=== PATIENT | female | born 2000 | race Caucasian/White ===

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

== ENCOUNTER 2020-01-17 16:38 | Outpatient (REF) | payer BC, SELFPAY | END 2020-01-17 16:58 | LOC: LBN 16:38 | PROVIDERS: PCP Nurse Practitioner Family; Visit Provider Obstetrics & Gynecology | DX: N89.8 Other specified noninflammatory disorders of vagina (principal) | CPT/HCPCS: 87480; 87510; 87660 ==

== ENCOUNTER 2020-10-01 12:15 | Outpatient (REF) | payer BC, SELFPAY ==
--- NOTE | 2020-10-01 09:30 | PAPFT_PTH ---
PATIENT: Brenna Alexis LOC: [facility] U#:[id number] AGE/SX: 19/F ROOM: RE10/01/[address]: Heather Barton NP : 2000 BED: DIS: 10/01/2020 SPEC #: [id number] RECD: 10/01/20 12:34 STATUS: DANIEL RESujatha #: [id number] HARJIT: 10/01/20 09:[address]: Heather Barton NP DEPT: [facility] Cytology RECD BY: Mary Pena ENTERED: 10/01/20 12:35 SP TYPE: PAPFT OTHR DR: Austyn James NP Tissues: 1 - CX/ENDOCX FOR PAP SMEARS Procedures: PAP THIN PREP/UVM Screening Comments: [id number] (CHLAMYDIA/GC)
[2020-10-02 16:32] LABS: Chlamydia Result Negative (Negative); GC Result Negative (Negative)
== END 2020-10-01 12:16 | disposition home or self-care (01) ==
LOC: LBN 12:15
PROVIDERS: PCP Nurse Practitioner Family; Visit Provider Nurse Practitioner Women's Health
DX: Z11.3 Encounter for screening for infections with a predominantly sexual mode of transmission (principal); Z12.4 Encounter for screening for malignant neoplasm of cervix
CPT/HCPCS: 87491; 87591; 88142

== ENCOUNTER 2021-02-20 01:02 | Outpatient (CLI) | payer BC, SELFPAY ==
--- NOTE | 2021-02-20 08:00 | DI.RAD_ITS ---
Exam(s) XR HIP LT COMPLETE AP PELVIS EXAM: XR HIP LT COMPLETE AP PELVIS CLINICAL HISTORY: LT HIP PAIN, M25.552. TECHNIQUE: 2D digital imaging was performed. COMPARISON: No exams were available for comparison FINDINGS: No evidence of pelvic nor hip fracture. No degenerative changes in the hips. No evidence of develop mental dysplasia. No evidence of CAM-type femoral neck excrescence. Sacroiliac joints appear unrema rkable. IMPRESSION: No significant radiographic findings. DATA REPOSITORY: RADIATION DOSE DELIVERED:
== END 2021-02-20 01:22 ==
PROVIDERS: PCP Nurse Practitioner Family; Visit Provider Nurse Practitioner Family
DX: M25.552 Pain in left hip (principal)
CPT/HCPCS: 73502

== ENCOUNTER 2021-07-29 15:21 | Outpatient (REF) | payer BC, SELFPAY ==
[2021-07-31 15:30] LABS: Chlamydia Result Negative (Negative); GC Result Negative (Negative)
== END 2021-07-29 15:22 | disposition home or self-care (01) ==
LOC: LBN 15:21
PROVIDERS: PCP Nurse Practitioner Family; Visit Provider Nurse Practitioner Women's Health
DX: Z11.3 Encounter for screening for infections with a predominantly sexual mode of transmission (principal)
CPT/HCPCS: 87491; 87591

== ENCOUNTER 2021-08-07 08:15 | Outpatient (REF) | payer BC, SELFPAY ==
[2021-08-07 11:25] LABS: Source Nasal/Nares
[2021-08-07 16:58] LABS: COVID-19 PCR Negative (Negative)
== END 2021-08-07 08:16 | disposition home or self-care (01) ==
LOC: LBN 08:15
PROVIDERS: PCP Nurse Practitioner Family; Visit Provider Student in an Organized Health Care Education/Training Program
DX: Z20.822 Contact with and (suspected) exposure to COVID-19 (principal); Z01.818 Encounter for other preprocedural examination
CPT/HCPCS: 87635

== ENCOUNTER 2021-08-08 10:23 | Day surgery (SDC) | payer BC, SELFPAY ==
[2021-08-08] VITALS (9 sets, daily range): BP systolic 97–109; BP diastolic 43–62; PULSE 77–106; RESP 16–21; TEMP 36.5–36.6; O2SAT 98–100; BMI 22.2
[2021-08-08] MEDS: Lactated Ringers 1,000 ML 100 ML IV (10:57)
--- NOTE | 2021-08-08 11:12 | W.ANESPRE ---
General Info Date of Service Date Performed: 08/08/21 Height: 5 ft 4 in Weight: 58.8 kg Body Mass Index (BMI): 22.2 Surgical Procedure: Operation Date: 08/08/21 12:50 Proposed Procedure Side Surgeon p Hip Arthroscopy w/Labral Repair and Poss. Femoroplasty Left Lucio Maldonado MD Meds Allergies and Home Medications Allergies Allergy/AdvReac Type Severity Reaction Status Date / Time amoxicillin AdvReac Intermediate Diarrhea Verified 08/08/21 10:31 amoxicillin trihydrate AdvReac Intermediate Diarrhea Verified 08/08/21 10:31 [From Augmentin] potassium clavulanate AdvReac Intermediate Diarrhea Verified 08/08/21 10:31 [From Augmentin] Home Medication Medication Instructions Recorded levonorgestrel (Kyleena) 1 device INTRAUTERINE ONCE #1 ea 07/29/21 aspirin 81 mg tablet,delayed 81 mg PO DAILY 14 Days #14 tab 08/08/21 release naproxen 250 mg tablet 250 - 500 mg PO BID PRN #40 tab 08/08/21 oxycodone 5 mg tablet 5 - 10 mg PO Q4H PRN #18 tab MDD 08/08/21 30 mg Current Visit Medications: Current Medications Generic Name Dose Route Start Last Admin Trade Name Freq PRN Reason Stop Dose Admin Ringer's Solution 1,000 mls @ 100 mls/hr 08/08/21 06:00 08/08/21 10:57 IV 09/06/21 23:59 100 mls/hr INFUSION PERLA Administration Cefazolin Sodium/Dextrose 2 gm in 50 mls @ 100 mls/hr 08/08/21 06:00 Ancef Duplex IVPB 09/06/21 23:59 PREOP PERLA IV Miscellaneous Supplies 1 each 08/08/21 06:00 Iv Access IV 09/06/21 23:59 DIRECTED PERLA Naproxen 250 - 500 mg 08/08/21 11:09 Naproxen 500 Mg Tab PO BID PRN PRN Oxycodone HCl 5 - 10 mg 08/08/21 11:09 Oxycodone 5 Mg Tab PO Q4H PRN PRN Sodium Chloride 0 ml 08/08/21 06:00 Normal Saline Flush 10 Ml Syr IV 09/06/21 23:59 PRN PRN Sodium Chloride 0 ml 08/08/21 06:00 Normal Saline 10 Ml Vial IJ 09/06/21 23:59 DIRECTED PRN Sterile Water 0 ml 08/08/21 06:00 Water,Injection,Sterile 10 Ml Vial IJ 09/06/21 23:59 DIRECTED PRN PFSH Active Problems Active Problems: Problem Status Onset Code IUD surveillance 07/29/21 Z30.431 Labral tear of left hip joint S73.192A 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 Sciatica M54.30 Gastroesophageal reflux disease K21.9 Scoliosis M41.9 Medical History Medical History Anxiety Buckle fracture of distal ends of radius and ulna left- 2007 Gastritis Lumbar spine scoliosis Nocturnal enuresis resolved Obstructive sleep apnea resolved after T&A Patellofemoral syndrome Surgical History Surgical History Tonsillectomy and adenoidectomy age 1yr Tobacco Smoking/Tobacco Use Status: Never Passive smoking exposure: No Second hand exposure: No Alcohol Alcohol Intake: current Alcohol intake frequency: a few times a month Alcohol type: beer, wine and hard liquor Substance Use Substance use: Never Substance use type: does not use Prental History History 0 Para Hx # Term Pregnancies Multiple births Hx # Pregnancies Ectopic pregnancies AB induced Hx Number of Living Children AB spontaneous Vital Signs and Lab Results Vital Signs Most Recent Vital Signs in EMR: Most Recent Vital Signs Temp 36.6 C 08/08/21 10:32 Point of Care Results Point of Care Results: POC- Test(urine) Negative 08/08/21 10:39 Lab Results Blood Type / Crossmatch: No Data to Display Complete Blood Count: No Data to Display Complete Metabolic Panel: No Data to Display Liver Function Panel: No Data to Display Coagulation Panel: No Data to Display Cardiac Panel: No Data to Display Arterial Blood Gas: No Data to Display Venous Blood Gas: No Data to Display Pancreas Panel: No Data to Display Thyroid Panel: No Data to Display Infectious Disease: Coronavirus (COVID-19)(PCR) Negative (Negative) 08/07/21 08:09 08/07/21 Coronavirus 2019 Source Nasal/Nares 08/07/21 08:09 08/07/21 Neisseria gonorrhoeae DNA Probe Negative (Negative) 07/29/21 13:30 07/29/21 Blood Cultures: No Data to Display Toxicology Panel: No Data to Display Panel: Urine HCG, Qualitative Negative 07/29/21 13:04 07/29/21 Anesthesia Assessment and Plan Anesthesia History Personal History: No History of Anesthesia Complications Family History: No Family History of Anesthesia Complications Exercise Tolerance Exercise Tolerance: Metabolic Equivalents>4 Cardiac & Pulmonary Exam Cardiac Exam: Normal S1/S2 Heart Sounds Pulmonary Exam: Clear Bilateral Breath Sounds Implantable Cardiac Device Does patient have a Pacemaker or an ICD?: No Airway Exam Known Difficult Airway: No Mallampati Class: 3 Mouth Opening: Normal (> 3cm) Thyromental Distance: Greater than 3 cm Neck Range of Motion: Full ROM Neck Circumference: Normal Teeth Condition: Normal Dentition ASA Classification ASA Score: ASA 2 Emergency Case?: No NPO Status NPO Status: NPO Clears >2 hours, Solids >8 hours Status Status: Negative HCG Anesthesia Plan Resuscitation Status: Full Code Anesthesia Technique: General Anesthesia Airway Planned: Endotracheal Tube Pain Management: Surgeon and patient request nerve block Monitors Used: Standard Monitors Preoperative Comments:: 20 yo female for hip scope. Sig PMHx: denies. Would like preop anxiolysis.
--- NOTE | 2021-08-08 11:28 | NUR.NOTE ---
Versed 2mg and Zofran 4 mg IV given by anesthesia. O2 sat monitor on. Mother remains at bedside.Nursing Note:
[2021-08-08] MEDS: ceFAZolin 2 GM/50 ML BAG IVPB (12:46)
[2021-08-08] MEDS: Bupivacaine 0.25% Pres-Free 30 ML VIAL (13:27)
--- NOTE | 2021-08-08 13:27 | W.ANESNERVE ---
Nerve Block Single Injection Procedure Date and Time Date Performed: 08/08/21 Procedure Start: 12:31 Location Where Procedure Performed Procedure Location: Operating Room Procedure Stop: 12:40 Reason Performed: Postoperative Analgesia Requesting Provider: Lucio Maldonado Timeout Performed Timeout Performed: Yes Monitoring Used ECG, Blood Pressure and SpO2 Sterility Sterility: Hand Hygiene, Surgical Cap, Surgical Mask, Sterile Gloves and Chlorhexidine Sedation Given During Procedure Sedation Given (Indicate Dose Given): No Sedation given Patient Mental Status Patient Mental Status: Performed under general anesthesia Nerve Block 1st Nerve Block: Laterality: Left Block Type: EDER Needle / Catheter Used: 100mm SonoPlex II Local Anesthetic Bolus (Indicate Dose Given): Bupivacaine 0.375% Dose:: 20 mL Additives (Indicate Dose Given): Epinephrine to make 1:400,000 (2.5mcg/ml) Dose:: 2.5 mcg/ml, Decadron Dose:: 4 mg and Precedex Dose:: 30 mcg Ultrasound: Sterile probe cover and gel used Ultrasound Image Saved?: Yes Nerve Stimulator: Not Used Paresthesia: None Procedure Tolerated: No Complications Procedure Outcome: Successful Procedure Comment: Surgical laterality was confirmed with the patient on entering room. After induction of GA Idania prepped the right side and the needle was placed. It was then noticed that the initial needle placement was on the incorrect side. The needle was removed, the correct/left side was prepped and the block was performed without difficulty. Performed By: Bernardino Mancia
--- NOTE | 2021-08-08 14:34 | DI.RAD_ITS ---
Exam(s) XR HIP LT IN OR EXAM: XR HIP LT IN OR CLINICAL HISTORY: (1) Labral tear of left hip joint: TECHNIQUE: 2D and realtime digital imaging was performed. CONTRAST MATERIAL: Refer to procedure report. COMPARISON: No exams were available for comparison FINDINGS: Fluoroscopy was provided for Dr. Maldonado during the performance of a labral tear repair. Please refer to the procedure report for complete details. Ka,r=5.77 mGy IMPRESSION: RADIATION DOSE DELIVERED:
--- NOTE | 2021-08-08 15:09 | PDOC.DSDIS_ITS ---
Discharge Plan Disposition Patient Disposition: HOME Condition: Stable Discharge Details Reason For Visit: Left hip surgery Attending Provider: Lucio Maldonado Primary Care Provider: Austyn James Home Meds and New Rx's Prescriptions: New aspirin 81 mg tablet,delayed release (DR/EC) 81 mg PO DAILY 14 Days Qty: 14 0RF naproxen 250 mg tablet 250 - 500 mg PO BID PRNQty: 40 0RF Rx Instructions: take with a meal oxycodone 5 mg tablet 5 - 10 mg PO Q4H MDD 30 mg PRN (Reason: moderate to severe pain) Qty: 18 0RF ondansetron 4 mg tablet,disintegrating 4 mg PO Q6H PRN (Reason: nausea or vomiting) Qty: 5 0RF Continued Kyleena 17.5 mcg/24 hrs (5 yrs) 19.5 mg intrauterine device 1 device intrauterine ONCE Qty: 1 0RF Discharge Instructions Additional Instructions: Surgery: Left hip arthroscopy with labral repair and femoroplasty Activity: Protected weight bearing (less than 50%) with crutches for 4 weeks. Avoid deep hip flexion or hip extension for 6 weeks. No cutting, pivoting, or sports for about 3-4 months. A physical therapy prescription will be sent electronically to start in about 3 weeks. Prescriptions: Aspirin 81 mg take 1 daily to prevent a blood clot for 14 days Naproxen 250 mg take 1-2 every 12 hours with a meal as needed for moderate pain Oxycodone 5 mg take 1-2 every 4-6 hours as needed for severe pain You may use [id number] Tylenol (acetaminophen) as needed for mild pain. These pain medications may be taken all at once or in different combinations as needed. Ondansetron (Zofran) 4 mg take 1 orally dissolving tablet every 6 hours as needed for nausea or vomiting Also, recommend Colace (docusate) as a stool softener as surgery and pain medicine cause constipation. A daily probiotic may help with any additional GI issues Dressings: Leave dressing in place for 3 days. May then remove and leave open to air or cover incisions with Band-Aids. May shower after 5 days. Follow-up: 10-[address] Maldonado August 20, 2021 @ 2:15 PM Let us know right away if you develop any redness, drainage, fevers, chest pain, or trouble breathing. Do not drink alcohol or drive for at least 24 hours after anesthesia. Please call the office during business hours with any questions or concerns. Stand Alone Forms: Anesthesia Discharge Inst., Anes.Nerve Block Instructions, Crutch Training Instructions, Yobani Ku (DSU) Referrals: Lucio Maldonado MD [ [facility] STAFF PHYSICIAN] - Discharge Orders Discharge Orders: Discharge Order (Routine); Ordered 08/08/21 Ordered By: Lucio Maldonado DS: Diagnosis Discharge Diagnosis (1) Labral tear of left hip joint: Status: Acute (2) Femoroacetabular impingement of left hip: Status: Acute
[2021-08-08] MEDS: EPINEPHrine 30 MG/30 ML VIAL (15:13)
--- NOTE | 2021-08-08 15:24 | ROE_ITS ---
Date of service: 08/08/21 Time of Service: 12:00 Operative Note Operative Note DATE OF PROCEDURE: 08/08/21 PRE-OP DIAGNOSIS: Left hip 1. Labral tear 2. Femoracetabular impingement POST-OP DIAGNOSIS: same PROCEDURE: Left hip 1. Arthroscopic labral repair, CPT# 11266 2. Arthroscopic femoroplasty, CPT# 68787 SURGEON: Lucio Maldonado PROFESSOR OF SOCIOLOGY: Lucretia Alcantara ANESTHESIA TYPE: Local By Surgeon, General LMA/ETT and Primary Nerve Block (EDER) Refer to Anesthesia Record ESTIMATED BLOOD LOSS: 15 COMPLICATIONS: Other (No surgical complications. See anesthesia record for regional anesthesia details.) Patient was transported to: PACU Patient's condition: stable Implants: 1.8 mm knotless FiberTak x 1 Indications: Please see complete medical record for details. Findings: Relatively stable intrasubstance anterior labral tear with extension to the chondral labral junction anterosuperiorly with cartilage wave sign. Small anterolateral femoral head neck junction bony protuberance about bone cyst. Procedure Description: In the operating room, general and regional anesthesia were induced. The patient was positioned supine on the [place] table. All bony prominences were well-padded. Preoperative antibiotics were administered. The correct patient, procedure, and side of the procedure were all verified prior to beginning. Initially, appropriate hip joint distraction was confirmed under sterile techn ique releasing suction seal with the hip in slight abduction by carefully placing an 18-gauge spinal needle into the hip joint and performing an air arthrogram. The needle was removed, provisional traction released, and the hip prepped and draped in the usual sterile fashion. 20 cc of bupivacaine and lidocaine mixture containing epinephrine was infiltrated about the planned portal sites. Fluoroscopically, an anterolateral portal was established with hip under about 1 cm distraction. Traction start time as noted. Through the spinal needle, a nitinol wire was inserted and the needle removed. An 11 blade was used to create a portal sized incision about the Nitinol wire. A small 4 mm dilator was passed atraumatically over the nitinol wire through the capsule into the hip joint. The nitinol wire was removed. A 6 mm dilator was then passed over the smaller one into the hip joint and the initial dilator removed. The blunt end of a switching stick was then passed into the hip joint and the last dilator removed. The camera sleeve was then inserted over the switching stick, the switching stick removed, and the arthroscope attached to the camera sleeve. An initial dry arthroscopy of the hip joint confirmed appropriate viewing portal location about the equator laterally. Using a combination of fluoroscopic guidance and arthroscopic triangulation a modified mid anterior portal was established in a similar fashion with a spinal needle and sequential dilators. Care was taken to ensure the portal was in an appropriate position and outside the labrum. A banana blade was inserted anteriorly over half pipe. The capsule was released distal to the labrum working towards the anterolateral portal. The camera was then switched to the anterior portal, the anterolateral portal location was confirmed to be appropriate, and the banana blade brought in the anterolateral portal and the interportal capsulotomy completed. The camera was then switched back to the anterolateral portal. A complete diagnostic arthroscopy of the hip was performed with relevant findings noted above. Attention was then turned to the anterior superior labral tear. Various hand instruments were used to identify the margin of the tear and prepare the labrum and acetabulum to optimize healing. A rigid cannula was inserted anteriorly. Fluoroscopic assistance was used to confirm appropriate placement of the suture anchor about the central zone of injury between the intrasubstance and chondral labral junction tearing. The curved guide was used and directed proximally to ensure no joint penetration. After the curve guide was was tapped securing placement on the acetabular rim, the wire drill was used the appropriate depth, and knotless fiber tack anchor deployed. Withdrawing the sutures confirm secure fixation. The bhatia stitch was used to shuttle the looped end of the FiberLink shuttle stitch between the labrum and the acetabulum and retrieved centrally. The repair stitch was then shuttled around the labrum and appropriate tension applied completing the inversion repair. The repair suture was cut with a small tail. The probe was used to examine the labrum more anteriorly and superiorly with no significant remaining labral or chondrolabral junction tearing requiring additional repair. The blunt end of a switching stick was left in the anterior portal, but appropriately withdrawn from hip joint. The camera was withdrawn similarly. Under direct visualization traction was gradually released at 64 minutes. The femoral head neck junction was inspected about the zone of labral injury. The hip was brought through internal rotation, external rotation, and deep flexion with rotation. There was an obvious zone of injury involving cartilage thinning, delamination, and mild prominence about a small bone cyst at the femoral head neck junction distal to the labral repair A switching stick was used to retract the capsule distally, the hip positioned in moderate flexion, and the mechanical shaver used to debride unstable cartilage, bone cyst, and then smooth the bony prominence under fluoroscopic assistance. Hip was brought back through range of motion confirming appropriateness of femoroplasty. The limited capsulotomy had well apposed tissue ends and was not formally closed. The hip was drained of arthroscopic fluid. The portals were closed using 3-0 Monocryl in a buried fashion. Steri-Strips were applied over the incisions followed by Xeroform, 4 x 4 gauze, an ABD pad, and secured with tape. The patient awoke from anesthesia without complication and was transferred to the recovery room in a stable condition.
--- NOTE | 2021-08-08 15:29 | W.ANESPOSTOP ---
Postoperative Evaluation Date, Time and Location Date Performed: 08/08/21 Time Performed: 15:30 Patient Location: Day Surgery Unit Vital Signs Most Recent Imported Vital Signs: Most Recent Vital Signs Temp Pulse Resp BP Pulse Ox 36.6 C 81 20 105/61 100 08/08/21 14:53 08/08/21 15:10 08/08/21 15:10 08/08/21 15:10 08/08/21 15:10 Pain Score Most Recent Pain Score: Most Recent Pain Score Pain Level 5 08/08/21 15:10 Assessment Mental Status: Awake (Alert & Oriented to Patient Baseline) Airway and Respiratory Function: Patent airway with normal (patient baseline) respiratory exam Cardiovascular Function: Hemodynamically Stable Hydration Status: Adequately Hydrated Nausea & Vomiting: No Nausea or Vomiting Pain: Pain is tolerable per patient Peripheral Nerve Block: Regional nerve block not resolved at time of post operative discharge Postoperative Comments:: Discussed with her the accidental needle puncture on the right hip. She is aware that the block was started, but quickly aborted on the incorrect side. She has no further questions, and was encouraged to reach out to us is she has any.
[2021-08-08] MEDS: Naproxen 500 MG TAB PO (16:04)
--- NOTE | 2021-08-08 16:24 | NUR.NOTE ---
Stood at bedside for crutch training with 2 nurses for contact supervision. States she became dizzy and was going down. Assisted to supine Mother states she is a fainter. BP remained stable at 99/62. Recovered spontaneously. Additional apple juice and crackers with strawberry jam given. Nursing Note:
== END 2021-08-08 17:08 | disposition home or self-care (01) ==
PROVIDERS: PCP Nurse Practitioner Family; Visit Provider Student in an Organized Health Care Education/Training Program
PROC: (CPT 29860; principal; 2021-08-08 12:30)
DX: S73.192A Other sprain of left hip, initial encounter (principal); M25.852 Other specified joint disorders, left hip; M54.30 Sciatica, unspecified side
CPT/HCPCS: 29916; 29914; 73501; J0131; J0171; J0690; J1100; J1885; J2001; J2250; J2405; J2704; J3475

== ENCOUNTER 2022-05-04 03:27 | Outpatient (CLI) | payer BC, SELFPAY ==
[2022-05-04 11:36] LABS: Abs Immature Grans 0.01 10^3/uL (0.0-0.06); Absolute Basophil Count 0.05 10^3/uL (0.0-0.2); Absolute Eosinophil Count 0.08 10^3/uL (0.0-0.7); Absolute Lymphocyte Count 1.98 10^3/uL (1.2-3.4); Absolute Monocyte Count 0.49 10^3/uL (0.1-0.8); Absolute Neutrophil Count 3.09 10^3/uL (1.2-6.7); Basophils % 0.9; Eosinophils % 1.4; HCT 42.8 % (36.0-46.0); HGB 14.5 g/dL (11.2-15.7); Immature Grans % 0.2; Lymphocytes % 34.7; MCH 28.7 pg (27.0-33.0); MCHC 33.9 % (32.0-36.0); MCV 85 fL (80-95); Monocytes % 8.6; Neutrophils % 54.2; Platelet Count 243 10^3/uL (130-400); RBC 5.06 10^6/uL (3.93-5.22); RDW 12.5 % (11.7-14.6); RDW-SD 38.3 fL
[2022-05-04 12:43] LABS: ALT 19 U/L (14-59); AST 18 U/L (15-37); Albumin 4.4 g/dL (3.4-5.0); Alkaline Phosphatase 114 U/L (46-116); Anion Gap 7.8 mmol/L (3-11); BUN 8 mg/dL (7-18); Bilirubin, Total 0.7 mg/dL (0.2-1.0); CO2 26.2 mmol/L (21.0-32.0); CREATININE 0.7 mg/dL (0.55-1.02); Calcium 9.3 mg/dL (8.5-10.1); Chloride 105 mmol/L (98-107); Estimated GFR 124.55 (mL/min/1.73m2); Ferritin 34 ng/mL (8-252); Glucose 99 mg/dL (74-106); Potassium 3.8 mmol/L (3.5-5.1); Sodium 139 mmol/L (136-145); TSH (W/Ref FT4) 2.35 uIU/mL (0.36-3.74); Total Protein 7.7 g/dL (6.4-8.2); Vitamin B12 417 pg/mL (193-986)
[2022-05-04 13:57] LABS: C-Reactive Protein < 0.05 mg/dL (0.0-0.3)
[2022-05-05 10:00] LABS: Lyme Ab w Rflx to Lyme Confirm Negative (Negative)
[2022-05-06 14:12] LABS: ANA Interpretation Negative (Negative)
[2022-05-07 12:54] LABS: IgA 205 mg/dL (85-499); Interpretation (See Note); Tissue Transglutaminase IgA <1.2 U/mL (<4.0)
[2022-05-07 17:25] LABS: Anaplasma phagocytophilum Negative (Negative); B. miyamotoi PCR Negative (Negative); Babesia divergens/MO-1 Negative (Negative); Babesia duncani Negative (Negative); Babesia microti Negative (Negative); Ehrlichia chaffeensis Negative (Negative); Ehrlichia ewingii/canis Negative (Negative); Ehrlichia muris eauclairensis Negative (Negative)
[2022-05-12 22:01] LABS: c-ANCA Negative (Negative); p-ANCA Negative (Negative)
== END 2022-05-04 03:28 | disposition home or self-care (01) ==
LOC: LBO 03:27
PROVIDERS: PCP Nurse Practitioner Family; Visit Provider Surgery
DX: K21.9 Gastro-esophageal reflux disease without esophagitis (principal); K58.1 Irritable bowel syndrome with constipation; R10.9 Unspecified abdominal pain; Z83.79 Family history of other diseases of the digestive system; K62.5 Hemorrhage of anus and rectum; K62.89 Other specified diseases of anus and rectum; Z83.49 Family history of other endocrine, nutritional and metabolic diseases
CPT/HCPCS: 36415; 80053; 82784; 83516; 87798; 82607; 82728; 84443; 85025; 86038; 86140; 86255; 86618

== ENCOUNTER 2022-08-03 13:14 | Outpatient (REF) | payer BC, SELFPAY | END 2022-08-03 13:15 | disposition home or self-care (01) | LOC: LBN 13:14 | PROVIDERS: PCP Nurse Practitioner Family; Visit Provider Nurse Practitioner Women's Health | DX: R30.0 Dysuria (principal); R35.0 Frequency of micturition | CPT/HCPCS: 87086 ==

== ENCOUNTER 2022-09-18 07:08 | Day surgery (SDC) | payer BC, SELFPAY ==
--- NOTE | 2022-09-17 18:06 | W.COLOREPORT ---
Date of service: 09/18/22 Time of Service: 09:07 Colonoscopy Report Date of procedure: 09/18/22 Pre-op diagnosis general: IBS/rectal bleeding Post-op diagnosis procedure note: same Surgeon: Lucretia Irwin Anesthesia Type: General:No Airway Estimated blood loss (mL): 1 Pathology: other Complications: None Disposition: same day Prep: Miralax/Dulcolax Retraction Time: 18 Procedure Description: After informed consent was obtained the patient was taken to the procedure room and placed in a left decubitous position. Monitors were applied and a time out was done. The patients name, date of , procedure, allergies to medications and metal in their body was reviewed. The patient was then sedated. Once sedated and comfortable a rectal exam was done. External exam was normal. Internal exam revealed a normal sphincter tone and no palpable masses. The scope was then introduced and retrofelexed. No internal hemorrhoids were identified. Her previously noted anal fissure is healed. the scope was then advanced to the cecum without difficulty. The TI and appendiceal orifice were identified. The prep was BBPS 3 in all segments for total of 9. The scope was then slowly retracted over 18 minutes back into the rectum. There are no polyps or AVMs or diverticula visualized. The mucosa is pink and healthy. Biopsies are taken of the terminal ileum, the cecum, 80/60/40/20 centimeters in the rectum. He patient was woken up and taken back to Same day surgery in stable condition. The patient tolerated the procedure well and there were no immediate complications. Follow up: The patient should have a repeat colonoscopy at age 43, unless they develop changes in bowel habits or other new gastrointestinal complaints.
--- NOTE | 2022-09-17 21:31 | PDOC.DSDIS_ITS ---
Date of service: 09/18/22 Time of Service: 09:07 Discharge Plan Disposition Patient Disposition: Home Condition: Good Discharge Details Reason For Visit: colon scope Attending Provider: Lucretia Irwin Primary Care Provider: Austyn James Home Meds and New Rx's Prescriptions: Continued Kyleena 17.5 mcg/24 hrs (5 yrs) 19.5 mg intrauterine device 1 device intrauterine ONCE Qty: 1 0RF psyllium husk [Metamucil] 0.4 gram capsule 0.4 g PO DAILY Discontinued polyethylene glycol 3350 17 gram/dose powder 238 g PO ONCE Qty: 238 0RF Rx Instructions: take per colonoscopy instructions bisacodyl [Dulcolax (bisacodyl)] 5 mg tablet,delayed release (DR/EC) 5 mg PO ONCE Qty: 4 0RF Rx Instructions: take per colonoscopy instructions Discharge Instructions Additional Instructions: DSU Colonoscopy Post- Op Instructions Instructions for Everyone who is given Anesthesia: For your safety, please do the following for the next twenty-four (24) hours: *Do Not operate a motor vehicle (car, truck, motorcycle, etc.) *Do Not drink alcoholic beverages or use any recreational drugs for the first 24 hours or while taking pain medications. The medications in your body may have a reaction that can be dangerous. *Do Not make any important decisions or sign any important papers. Findings: Normal IBS -constation Dr. Irwin in 2 wks time 1. No lifting over 20 pounds or strenuous activity for the first 24 hours after your procedure. After 24 hours there are no restrictions on your activity but you may feel fatigued for a few days. 2. After you arrive home you may have a light meal and return to your normal diet as you can tolerate it without feeling sick to your stomach. 3. You may have a bloated, gaseous feeling in your belly (abdomen) after a colonoscopy. Passing gas and belching will help. Walking or lying down on your left side with your knees flexed may relieve the discomfort. Call the office at [phone] (Office) or [phone] (Hospital) right away if you notice any of the following: a.Vomiting of blood or ?coffee ground stools?. b.Rectal bleeding 1Tbsp, blood clots or continuous bleeding. c.Severe belly (abdominal) pain. d.A hard distended belly (abdomen) and an inability to pass gas. 4. Please don?t expect to have a normal BM (bowel movement) for 2-3 days after your procedure. 5. If there are questions regarding the findings of your procedure, please contact your doctor 6. If you are unable to contact your doctor with a problem, contact the hospital at [phone]. 7. Continue all your regular medications unless directed otherwise. I understand the above instructions and have no questions. Signature of Patient or Adult Escort Name of Responsible Adult Escort Signature of Nurse Date/Time Activity:: see above Diet:: see above Discharge Orders Discharge Orders: Discharge Order (Routine); Ordered 09/18/22 Ordered By: Lucretia Irwin DS: Diagnosis Discharge Diagnosis (1) Chronic constipation with overflow: Status: Acute (2) Chronic anal fissure: Status: Acute (3) Lactose intolerance: Status: Acute (4) Family history of thyroid disease: Status: Acute (5) Family history of irritable bowel syndrome: Status: Acute (6) Irritable bowel syndrome with constipation: Status: Acute Asessment and Plan: The patient is seen and examined after their colonoscopy.? The patient has been able to pass gas.? They are not having abdominal pain.? They have been able to t olerate liquids and a snack.? They do not have any nausea or vomiting.? They are not having any chest pain or shortness of breath.??? They are not having any rectal bleeding. Their vital signs have been stable-see nursing notes. We discussed findings during their colonoscopy, and any biopsies that were done/polyps that were removed. The patient will be sent a letter with any biopsy results, and when to repeat the colonoscopy.-see discharge instructions. Patient was given explicit instructions to follow-up regarding colonoscopy-refer to discharge instructions.? We reviewed resumption of medications. Patient verbalized understanding and discharged in stable and satisfactory condition- See nursing notes. (7) Abdominal cramping: Status: Acute (8) Gastroesophageal reflux disease: Status: Chronic
[2022-09-18 07:24] VITALS: BP 116/79; PULSE 78; RESP 17; TEMP 37; O2SAT 97
[2022-09-18] MEDS: Lactated Ringers 1,000 ML 80 ML IV (07:35)
--- NOTE | 2022-09-18 07:46 | W.ANESPRE ---
General Info Date of Service Date Performed: 09/18/22 Height: 5 ft 4 in Weight: 59.2 kg Body Mass Index (BMI): 22.4 Surgical Procedure: Operation Date: 09/18/22 08:20 Proposed Procedure Side Surgeon p Colonoscopy w/Biopsy Lucretia Irwin, Meds Allergies and Home Medications Allergies Allergy/AdvReac Type Severity Reaction Status Date / Time amoxicillin AdvReac Intermediate Diarrhea Verified 09/17/22 13:33 amoxicillin trihydrate AdvReac Intermediate Diarrhea Verified 09/18/22 07:23 [From Augmentin] potassium clavulanate AdvReac Intermediate Diarrhea Verified 09/18/22 07:23 [From Augmentin] Home Medication Medication Instructions Recorded levonorgestrel 17.5 mcg/24 hrs 1 device intrauterine ONCE #1 ea 07/29/21 (5yrs) 19.5mg intrauterine device (Kyleena) psyllium husk 0.4 gram capsule 0.4 g PO DAILY 06/01/22 (Metamucil) Current Visit Medications: Current Medications Generic Name Dose Route Start Last Admin Trade Name Freq PRN Reason Stop Dose Admin Hyoscyamine Sulfate 0.125 mg 09/18/22 06:04 Hyoscyamine 0.125 Mg Sl/Oral/Chew SL 10/18/22 06:03 DIRECTED PRN Ringer's Solution 1,000 mls @ 80 mls/hr 09/18/22 06:00 09/18/22 07:35 IV 09/18/22 23:59 80 mls/hr INFUSION PERLA Administration IV Miscellaneous Supplies 1 each 09/18/22 06:00 Iv Access IV 09/18/22 23:59 DIRECTED PERLA Ondansetron HCl 4 mg 09/18/22 06:04 Ondansetron 4 Mg/2 Ml Vial IVP 10/18/22 06:03 Q4H PRN PRN Nausea / Vomiting Sodium Chloride 0 ml 09/18/22 06:00 Normal Saline Flush 10 Ml Syr IV 09/18/22 23:59 PRN PRN Sodium Chloride 0 ml 09/18/22 06:00 Normal Saline 10 Ml Vial IJ 09/18/22 23:59 DIRECTED PRN Sterile Water 0 ml 09/18/22 06:00 Water,Injection,Sterile 10 Ml Vial IJ 09/18/22 23:59 DIRECTED PRN PFSH Active Problems Active Problems: Problem Status Onset Code Anxiety Scoliosis M41.9 Gastroesophageal reflux disease K21.9 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 Labral tear of left hip joint S73.192A IUD surveillance 07/29/21 Z30.431 Abdominal cramping R10.9 Irritable bowel syndrome with constipation K58.1 Family history of irritable bowel syndrome Z83.79 Family history of thyroid disease Z83.49 Lactose intolerance E73.9 Chronic anal fissure K60.1 Chronic constipation with overflow K59.09 Medical History Medical History Buckle fracture of distal ends of radius and ulna left- 2007 Gastritis Lumbar spine scoliosis Nocturnal enuresis resolved Obstructive sleep apnea resolved after T&A Patellofemoral syndrome Rectal bleeding Rectal pain Surgical History Surgical History History of repair of left hip joint Tonsillectomy and adenoidectomy age 1yr Tobacco Smoking/Tobacco Use Status: Never Passive smoking exposure: No Second hand exposure: No Alcohol Alcohol Intake: current Alcohol intake frequency: a few times a week Alcohol type: beer, wine and hard liquor Substance Use Substance use: Occasionally Substance use type: marijuana Prental History History 0 Para Hx # Term Pregnancies Multiple births Hx # Pregnancies Ectopic pregnancies AB induced Hx Number of Living Children AB spontaneous Vital Signs and Lab Results Vital Signs Most Recent Vital Signs in EMR: Most Recent Vital Signs Temp Pulse Resp BP Pulse Ox 37.0 C 78 17 116/79 97 09/18/22 07:24 09/18/22 07:24 09/18/22 07:24 09/18/22 07:24 09/18/22 07:24 Lab Results Blood Type / Crossmatch: No Data to Display Complete Blood Count: No Data to Display Complete Metabolic Panel: No Data to Display Liver Function Panel: No Data to Display Coagulation Panel: No Data to Display Cardiac Panel: No Data to Display Arterial Blood Gas: No Data to Display Venous Blood Gas: No Data to Display Pancreas Panel: No Data to Display Thyroid Panel: No Data to Display Infectious Disease: No Data to Display Blood Cultures: No Data to Display Toxicology Panel: No Data to Display Panel: No Data to Display Anesthesia Assessment and Plan Anesthesia History Personal History: No History of Anesthesia Complications Family History: No Family History of Anesthesia Complications Exercise Tolerance Exercise Tolerance: Metabolic Equivalents>4 Pertinent Negatives Pertinent Negatives: No Major Cardiovascular Symptoms or Complaints, No Major Pulmonary Symptoms or Complaints and No History of CVA/TIA Cardiac & Pulmonary Exam Cardiac Exam: Normal S1/S2 Heart Sounds Pulmonary Exam: Clear Bilateral Breath Sounds Implantable Cardiac Device Does patient have a Pacemaker or an ICD?: No Airway Exam Known Difficult Airway: No Mallampati Class: 3 Mouth Opening: Normal (> 3cm) Thyromental Distance: Greater than 3 cm Neck Range of Motion: Full ROM Neck Circumference: Normal Teeth Condition: Normal Dentition ASA Classification ASA Score: ASA 2 Emergency Case?: No NPO Status NPO Status: NPO Clears >2 hours, Solids >8 hours Status Status: Negative HCG Anesthesia Plan Resuscitation Status: Full Code Anesthesia Technique: General Anesthesia Airway Planned: Natural Airway Monitors Used: Standard Monitors
[2022-09-18 08:07] VITALS: BMI 22.4
--- NOTE | 2022-09-18 08:35 | BOWEL_PTH ---
PATIENT: Brenna Alexis LOC: [facility] U#:[id number] AGE/SX: 21/F ROOM: RE09/18/[address]: Lucretia Irwin : 2000 BED: DIS: 09/18/2022 SPEC #: [id number] RECD: 09/18/22 12:40 STATUS: DANIEL PALUMBO #: [id number] HARJIT: 09/18/22 08:[address]: Lucretia Irwin DEPT: Surgical Specimen RECD BY: Mary Pena ENTERED: 09/18/22 12:41 SP TYPE: Bowel OTHR DR: Austyn James, [facility] Tissues: 1 - BIOPSY BOWEL 2 - BIOPSY BOWEL 3 - BIOPSY BOWEL 4 - BIOPSY BOWEL 5 - BIOPSY BOWEL 6 - BIOPSY BOWEL 7 - BIOPSY BOWEL Procedures: GROSS AND MICRO LEVEL 4 Comments: [id number]
[2022-09-18 08:55] VITALS: BP 111/75; PULSE 85; RESP 16; TEMP 36.7; O2SAT 100
[2022-09-18 09:25] VITALS: BP 104/72; PULSE 74; RESP 16; TEMP 36.7; O2SAT 100
--- NOTE | 2022-09-18 09:46 | W.ANESPOSTOP ---
Postoperative Evaluation Date, Time and Location Date Performed: 09/18/22 Time Performed: 09:12 Patient Location: Day Surgery Unit Vital Signs Most Recent Imported Vital Signs: Most Recent Vital Signs Temp Pulse Resp BP Pulse Ox 36.7 C 85 16 111/75 100 09/18/22 08:55 09/18/22 08:55 09/18/22 08:55 09/18/22 08:55 09/18/22 08:55 Pain Score Most Recent Pain Score: Most Recent Pain Score Pain Level 0 09/18/22 08:55 Assessment Mental Status: Awake (Alert & Oriented to Patient Baseline) Airway and Respiratory Function: Patent airway with normal (patient baseline) respiratory exam Cardiovascular Function: Hemodynamically Stable Hydration Status: Adequately Hydrated Nausea & Vomiting: No Nausea or Vomiting Pain: Pt. Denies Any Pain Peripheral Nerve Block: Patient did not receive a nerve block
== END 2022-09-18 09:58 | disposition home or self-care (01) ==
PROVIDERS: PCP Nurse Practitioner Family; Visit Provider Surgery
PROC: 0DJD8ZZ Inspection of Lower Intestinal Tract, Via Natural or Artificial Opening Endoscopic (ICD-10-PCS; CPT 45378; principal; 2022-09-18 08:15)
DX: K62.5 Hemorrhage of anus and rectum; Z80.0 Family history of malignant neoplasm of digestive organs; K58.1 Irritable bowel syndrome with constipation; K62.89 Other specified diseases of anus and rectum
CPT/HCPCS: 45380; 81025; 88305; J2001; J2250; J2405

== ENCOUNTER 2023-12-15 02:25 | Outpatient (CLI) | payer BC, SELFPAY ==
--- OUTSIDE RECORDS SUMMARY | 2023-12-15 02:45 | XMS_ITS | Encounter Summary ---
Author Organization [facility] Address [address] [place] [address] Care Team Providers Care Manager Labor Relations Name Role Phone Kimberly Lu MD Primary Care Provider [phone]- [phone] Encounter Details Date Type Department Care Team ([facility] st Contact Info) Description 08/02/2018 Results Only [facility] [phone] Olamide Gordon, [facility] [address] [place] [address] Social History Tobacco Use Types Packs/Day Years Used Date Smoking Tobacco: Never Smokeless Tobacco: Never Alcohol Use Standard Drinks/Week Comments Yes 0 (1 standard drink = 0.6 oz pur e alcohol) 0-1 per week Sex and Gender Information Value Date Recorded Sex Assigned at Not on file Gender Identity Not on file Sexual Orientation Not on file documented as of this encounter Functional Status Functional Status Response Date of Assess ment Because of a physical, menta l, or emotional condition, does this person have difficulty doing errands alone such as visiting a doctor's office or shopping? No 08/05/2017 Cognitive Status Response Date of Assessm ent Because of a physical, menta l, or emotional condition, does this person have serious difficulty concentrating, remembering, or making decisions? No 08/05/2017 documented as of this encounter Plan of Treatment Not on file documented as of this encounter Procedures Procedure Name Priority Date/Time Associated Diagnosis Comments HSV (HERPES SIMPLEX VIRUS) MOLECULAR DETECTION, PCR Routine 08/02/2018 11:00 EDT documented in this encounter Results * (ABNORMAL) HERPES SIMPLEX VIRUS MOLECULAR DETECTION, PCR (08/02/2018 11:00 EDT) Specimen Description Lip 08/02/2018 13:43 EDT [facility] HSV1 DNA Result POSITIVE(AA) 019 11:10 EDT [facility] HSV2 DNA Result Negative 9 11:10 EDT [facility] TOPOGRAPHY UNKNOWN / Unknown 08/02/2018 11:00 EDT 08/02/2018 13:43 EDT Olamide Gordon DNP MICROBIOLOGY - GENER AL ORDERABLES [facility] [address] [place] [address] documented in this encounter Visit Diagnoses Not on filedocumented in this encounter Care Teams Manager Labor Relations Relationship Specialty Start Date End Date Kimberly Lu MD PCP - General 07/28/17 11/10/18 documented as of this encounter
--- OUTSIDE RECORDS SUMMARY | 2023-12-15 02:45 | XMS_ITS | Encounter Summary ---
Author Organization [facility] Address [address] [place] [address] Care Team Providers Care Quality Control Head Name Role Phone Unknown, Provider Primary Care Provider [phone] Encounter Details Date Type Department Care Team ([facility] st Contact Info) Description 12/23/2018 Results Only [facility] [phone] Kimberly Gallegos MD [address] [place] [address] Social History Tobacco Use Types Packs/Day Years [...] Procedure Name Priority Date/Time Associated Diagnosis Comments BACTERIAL CULTURE, URINE Routine 12/23/2018 18:39 EDT documented in this encounter Results * BACTERIAL CULTURE, URINE (12/23/2018 18:39 EDT) Pathologist [facility] Result 10,000 to 100,000 CFU/ml CITROBACTER KOSERI 12/25/2018 9:31 EDT [facility] Result Less than 10,000 CFU/ml Usual urogenital arlette. 12/25/2018 9:31 EDT [facility] URINE / Unknown 12/23/2018 1 8:39 EDT 12/23/2018 18:39 EDT Narrative Organism Antibiotic Method Susceptibility 10,000 to 100,000 cfu/ml citrobacter koseri Trimethoprim-Sulfameth oxazole SUSCEPTIBILITY (AMARI) Susceptible 10,000 to 100,000 cfu/ml citrobacter koseri Nitrofurantoin SUSCEPTIBILITY (AMARI) Intermediate 10,000 to 100,000 cfu/ml citrobacter koseri Ciprofloxacin SUSCEPTIBILITY (AMARI) Susceptible 10,000 to 100,000 cfu/ml citrobacter koseri Piperacillin Tazobactam SUSCEPTIBILITY (AMARI) Susceptible 10,000 to 100,000 cfu/ml citrobacter koseri Ertapenem SUSCEPTIBILITY (AMARI) Susceptible 10,000 to 100,000 cfu/ml citrobacter koseri Susceptibility comment SUSCEPTIBILITY (AMARI) 10,000 to 100,000 cfu/ml citrobacter koseri Susceptibility comment SUSCEPTIBILITY (AMARI) Third generation cephalosporins, such as ceftazidime, ceftriaxone, and cefpodoxime, should be avoided for treatment of this organism regardless of in vitro susceptibility. Kimberly Gallegos MD MICROBIOLOGY - [facility] AL ORDERABLES [facility] [address] [place] [address] documented in this encounter Visit Diagnoses Not on filedocumented in this encounter Care Teams Quality Control Head Relationship Specialty Start Date End Date Unknown, Provider, PCP - General 11/11/18 documented as of this encounter
--- OUTSIDE RECORDS SUMMARY | 2023-12-15 02:45 | XMS_ITS | Encounter Summary ---
Author Organization [facility] Address [address] [place] [address] Care Team Providers Care Automatic Vulcanizing Lead Operator Name Role Phone Kimberly Lu MD Primary Care Provider [phone]- [phone] Encounter Details Date Type Department Care Team (Late st Contact Info) Description 07/15/2018 10:40 EDT - 07/15/2018 10:42 EDT Hospital Encounter [address] [address] Olamide Gordon, DNP [address] [place] [phone] Discharge Disposition: Home or Self Care Social History Tobacco Use Types Packs/Day Years [...] No 08/05/2017 documented as of this encounter Discharge Diagnoses Diagnosis B37.3 Candidiasis of vulva and vagina-B37.3[ICD-10-CM] documented in this encounter Medications at Time of Discharge Medication Sig Dispensed Refills Start Date End Date desogestrel-ethinyl estradiol (ENSKYCE) 0.15-0.03 mg per tablet Take 1 Tab by mouth daily. Multivitamins with Minerals tablet tablet Take 1 Tab by mouth daily. mupirocin calcium (BACTROBAN) 2 % cream Apply a small amount to affected skin BID-TID 30 g 06/03/2018 ranitidine (ZANTAC) 150 mg tablet Take 150 mg by mouth 2 times daily as needed for Heartburn. documented as of this encounter Discharge Disposition Disposition Code Departure Means Destination Home or Self Care documented in this encounter Plan of Treatment Not on file documented as of this encounter Visit Diagnoses Not on filedocumented in this encounter Care Teams Automatic Vulcanizing Lead Operator Relationship Specialty Start Date End Date Kimberly Lu MD PCP - General 07/28/17 11/10/18 documented as of this encounter
--- OUTSIDE RECORDS SUMMARY | 2023-12-15 02:45 | XMS_ITS | Encounter Summary ---
Author Organization [facility] Address [address] [place] [address] Care Team Providers Care Insole Toe Snipping Machine Operator Name Role Phone Kimberly Lu MD Primary Care Provider [phone]- [phone] Encounter Details Date Type Department Care Team ([facility] st Contact Info) Description 08/02/2018 15:04 EDT - 08/02/2018 23:59 EDT Hospital Encounter [address] [address] Olamide Gordon, [facility] [address] [place] [phone] Discharge Disposition: Home or Self Care Social [...] as of this encounter Discharge Diagnoses Diagnosis 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
--- OUTSIDE RECORDS SUMMARY | 2023-12-15 02:45 | XMS_ITS | Encounter Summary ---
Author Organization [facility] Address [address] [place] [address] Care Team Providers Care Bunch Maker Name Role Phone Kimberly Lu MD Primary Care Provider [phone]- [phone] Reason for Visit * Reason Comments Follow-up seen yesterday for l olena on left thigh, noticed today spreading redness, worried about infection Encounter Details Date Type Department Care Team (Latest Contact Info) Description 06/03/2018 15:45 EST - 06/03/2018 17:18 EST Hospital Encounter [facility] - [address] [address] Chiqui Carmichael PA-C [address] [place] [address] [phone] Unknown, Provider, Skin lesion (Primary Dx) Discharge Disposition: Home or Self Care Social [...] on file documented as of this encounter Last Filed Vital Signs Vital Sign Reading Time Taken Comments Blood Pressure 111/67 06/03/2018 1601 EST Pulse 80 06/03/2018 1601 EST Temperature 36.4 ??C (97.6 ??F) 06/03/2018 1601 EST Respiratory Rate 16 06/03/2018 1601 EST Oxygen Saturation - - Inhaled Oxygen Concentration - - Weight - - Height - - Body Mass Index - - documented in this encounter Functional Status Functional Status Response [...] as of this encounter Discharge Diagnoses Diagnosis J98.9 Respiratory disorder, unspecified-J98.9[ICD-10-CM] documented in this encounter Discharge Instructions * Attachments The following attachments cannot be sent through Care Everywhere. * SKIN CONDITION: ANTIBIOTICS (RWANDAN) documented in this encounter Medications at Time [...] for Heartburn. documented as of this encounter Ordered Prescriptions Prescription Sig Dispensed Refills Start Date End Da te mupirocin calcium (BACTROBAN) 2 % cream Apply a small amount to affected skin BID-TID 30 g 06/03/2018 documented in this encounter Discharge Disposition Disposition Code Departure Means Destination Home or Self Care documented in this encounter ED Notes * Chiqui Carmichael PA - 06/03/2018 1721 EST DOS: 06/03/2018 Chief Complaint Patient presents with ??? Follow-up seen yesterday for lesion on left thigh, noticed today spreading redness, worried about infection The patient is a 17 y.o. female who presents today with Follow-up (seen yesterday for lesion on left thigh, noticed today spreading redness, worried about infection) Brenna is a mg 17 year old female patient who presents for evaluation of a skin lesion for which she was seen yesterday. She does have follow up with derm in 4 days but she had some new rendess andpain surrounding the lesion and is concerned it may have become infected at this point. No fever orchills. The central part of the lesion had been black and now it is white which is also quite concerning to her. There was a similar lesion from a few weeks ago that is now healing. Pt had zoster vaccination as a child. Review of Systems Constitutional: Negative for activity change, appetite change and fever. Musculoskeletal: Negative for arthralgias and neck pain. Skin: Positive for color change. Negative for wound. Neurological: Negative for dizziness and weakness. No current facility-administered medications for this encounter. Current Outpatient Medications Medication Sig Dispense Refill ??? desogestrel-ethinyl estradiol (ENSKYCE) 0.15-0.03 mg per tablet Take 1 Tab by mouth daily. ??? Multivitamins with Minerals tablet tablet Take 1 Tab by mouth daily. ??? mupirocin calcium (BACTROBAN) 2 % cream Apply a small amount to affected skin BID-TID 30 g 0 ??? ranitidine (ZANTAC) 150 mg tablet Take 150 mg by mouth 2 times daily as needed for Heartburn. Allergies Allergen Reactions ??? Amoxicillin Diarrhea There are no active problems to display for this patient. Past Medical History: Diagnosis Date ??? Anemia ??? Depression ??? GERD (gastroesophageal reflux disease) Social History Tobacco Use ??? Smoking status: Never Smoker ??? Smokeless tobacco: Never Used Substance Use Topics ??? Alcohol use: Yes Comment: 0-1 per week ??? Drug use: No Family History Problem Relation Age of Onset ??? Depression Mother ??? Asthma Sister BP 111/67 Pulse 80 Temp 97.6 ??F (36.4 ??C) (Tympanic) Resp 16 Physical Exam Constitutional: She appears well-developed and well-nourished. HENT: Head: Normocephalic and atraumatic. Pulmonary/Chest: Effort normal. Musculoskeletal: Normal range of motion. Skin: Skin is warm and dry. Left anterior thigh with healing scab about 2 mm. About 10 cm distal and medial is another lesion: there is a 2 mm ulceration,. Shallow, clean base, adjacent there is a 2 mm pustule, with about 1.5 cm surrounding erythema and induration. minimal tenderness. No lymphangitis No fluctuance Nursing note and vitals reviewed. Consult orders: None PCP: Kimberly Lu No results found for this visit on 06/03/18. Radiology orders: None Imaging Results None No orders to display Procedures URGENT CARE COURSE A medical screening exam was performed. ASSESSMENT AND PLAN Final diagnoses: Skin lesion Lesion was unroofed. No material was really able be be expressed. What little was there was sent for culture. bactroban prescribed. F/u with derm as planned. Dr. Josee Brody was available for consultation during my care of this patient. DISPOSITION: Discharged The patient's pain was managed to an adequate level weighing risk vs. benefit of further medications. Upon departure from [facility], the patient's pain was 0 on a zero to ten scale. Any further pain treatment will be at the discretion of the provider following up with the patient based on their clinical assessment . Condition at departure from the [facility] : Stable MDM 06/03/2018 17:23 * Ham Marsh MA - 06/03/2018 1600 EST Presents with lesion on LEFT thigh. Was seen yesterday and has had spreading hot redness around it. documented in this encounter Plan of Treatment Not on file documented as of this encounter Procedures Procedure Name Priority Date/Time Associated Diagnosis Comments BACTERIAL CULTURE/SMEAR Routine 06/03/2018 17:20 EST Skin lesion documented in this encounter Results * BACTERIAL CULTURE/SMEAR, OTHER (06/03/2018 17:20 EST) Gram Smear Result No polys seen 06/04/2018 7:23 EST [facility] Gram Smear Result No bacteria seen 06/04/2018 7:23 EST [facility] Result No growth 06/05/2018 9:02 [facility] Specimen of unknown material (specimen) LOWER LIMB STRUCTURE / Unknown 06/03/2018 17:20 EST 06/03/2018 17:21 EST Comment:Performed at [facility] [place], [place] Chiqui Carmichael PA-C MICROBIOLOGY - GENERAL ORDERABLES [facility] [address] [place] [address] documented in this encounter Visit Diagnoses Diagnosis Skin lesion- Primary Unspecified disorder of skin and subcutaneous tissue documented in this encounter Care Teams Bunch Maker Relationship Specialty Start Date End Date Kimberly Lu MD PCP - General 07/28/17 11/10/18 documented as of this encounter
--- OUTSIDE RECORDS SUMMARY | 2023-12-15 02:45 | XMS_ITS | Referral Summary ---
Author Organization [facility] Address [address] [place] [address] Care Team Providers Care Ear Pull Machine Operator Name Role Phone Unknown, Provider Primary Care Provider [phone] Allergies Active Allergy Reactions Criticality Noted Date Comments Amoxicillin Diarrhea 08/05/2017 Medications Medication Sig Dispensed Refills Start Date End Date Status ranitidine (ZANTAC) 150 mg tablet Take 150 mg by mouth 2 times daily as needed for Heartburn. Active desogestrel-ethinyl estradiol (ENSKYCE) 0.15-0.03 mg per tablet Take 1 Tab by mouth daily. Active Multivitamins with Minerals tablet tablet Take 1 Tab by mouth daily. Active mupirocin calcium (BACTROBAN) 2 % cream Apply a small amount to affected skin BID-TID 30 g 06/03/2018 Active Additional Information Patient not taking.Reported on 06/06/2018 Active Problems No known active problems Social History Tobacco Use Types Packs/Day Years Used Date Smoking Tobacco: Never Smokeless Tobacco: Never Alcohol Use Standard Drinks/Week Comments Yes 0 (1 standard drink = 0.6 oz pur e alcohol) 0-1 per week Interpersonal Safety Answer Date Record ed Physically Hurt Never 11/27/2019 Verbally Threaten Not on file 11/27/2019 Sex and Gender Information Value Date Recorded Sex Assigned at Not on file Gender Identity Not on file Sexual Orientation Not on file Last Filed Vital Signs Vital Sign Reading Time Taken Comments Blood Pressure 111/67 06/03/2018 1601 EST Pulse 80 06/03/2018 1601 EST Temperature 36.4 ??C (97.6 ??F) 06/03/2018 1601 EST Respiratory Rate 16 06/03/2018 1601 EST Oxygen Saturation - - Inhaled Oxygen Concentration - - Weight 54.3 kg (119 lb 9.6 oz) 08/05/2017 0757 E DT Height 162.6 cm (5' 4) 08/05/2017 0757 EDT Body Mass Index 20.53 08/05/2017 0757 EDT Functional Status Functional Status Response Date of [...] concentrating, remembering, or making decisions? No 08/05/2017 Plan of Treatment Not on file Care Teams Ear Pull Machine Operator Relationship Specialty Start Date End Date Unknown, Provider, PCP - General 11/11/18
--- OUTSIDE RECORDS SUMMARY | 2023-12-15 02:45 | XMS_ITS | Encounter Summary ---
Author Organization Health system Address [address] [place] [address] Care Team Providers Care Solid Glass Rod Dowel Machine Operator Name Role Phone Kimberly Lu MD Primary Care Provider [phone]- [phone] Reason for Visit * Reason Onset Date Comments Follow-up 06/03/2018 UC visit on for spost on legs Encounter Details Date Type Department Care Team (Late st Contact Info) Description 06/03/2018 Telephone [facility] Pediatric Primary Care - [address] [id number] Tommy Ritter, IAN [address] [place] [address] Follow-up (UC visit on 06/02/18 for spost on legs) Social History Tobacco Use Types Packs/Day Years [...] No 08/05/2017 documented as of this encounter Miscellaneous Notes * Telephone Encounter - Katt Jimenez, IAN - 06/03/2018 0901 EST pc from Brenna- in process- of getting new PCP- was a pt of 'kvng in [facility], now at [facility]- enc pt to see adult care practioner- and reminded to f/u with derm- if takes too long to get [facility] , [facility]. * Telephone Encounter - Janny Wisdom RN - 06/03/2018 0842 EST Not a pt at this PCP office * Telephone Encounter - Tommy Ritter RN - 06/03/2018 0820 EST URGENT CARE COURSE A medical screening exam was performed. Unusual dark macular lesion on left thigh with hx of prior lesion that resolved. Reassured patient of likely benign nature since lesion did heal previously. Will refer to derm, and she will call them if it the lesions are spreading, will cancel if lesions resolve. No treatment at this time since the lesions are asymptomatic. She will just watch for changes or spread. ?? documented in this encounter Plan of Treatment Not on file documented as of this encounter Visit Diagnoses Not on filedocumented in this encounter Care Teams Solid Glass Rod Dowel Machine Operator Relationship Specialty Start Date End Date Kimberly Lu MD PCP - General 07/28/17 11/10/18 documented as of this encounter
--- OUTSIDE RECORDS SUMMARY | 2023-12-15 02:45 | XMS_ITS | Clinical Summary ---
Author Organization [facility] Address [address] [place] [address] Care Team Providers Care Collarette Separator Name Role Phone Unknown, Provider Primary Care Provider [phone] Allergies Active Allergy Reactions Criticality Noted Date [...] 06/06/2018 Active Problems No known active problems Surgical History Surgery Date Site/Laterality Comments TONSILLECTOMY WISDOM TOOTH EXTRACTION Medical History Medical History Date Comments Anemia Depression GERD (gastroesophageal reflux disease) Family History Medical History Relation Comments Depression Mother Asthma Sister Relation Status Comments Mother Sister Social History Tobacco Use Types Packs/Day Years [...] on file Sexual Orientation Not on file Obstetrics History Last Filed Vital Signs Vital Sign Reading [...] Body Mass Index 20.53 08/05/2017 0757 EDT Plan of Treatment Health Maintenance Due Date Last Done Comments Hepatitis C Screen 1998 Hepatitis B Vaccine (1 of 3 - 19+ 3-dose series) 11/22 COVID-19 Vaccine (2022-24 season) 2022 Care Teams Collarette Separator Relationship Specialty Start Date End Date Unknown, Provider, PCP - General 11/11/18
--- OUTSIDE RECORDS SUMMARY | 2023-12-15 02:45 | XMS_ITS | Encounter Summary ---
Author Organization [facility] Address [address] [place] [address] Care Team Providers Care Tool Tender Name Role Phone Unknown, Provider Primary Care Provider [phone] Encounter Details Date Type Department Care Team (Late st Contact Info) Description 10/01/2020 Lab Requisition [facility] Pathology & Laboratory Medicine - [address] [address] Heather Barton, OUTPATIENT PHYSICAL THERAPIST ASSISTANT [address] [place] [address] Encounter for other general examination Social History Tobacco Use Types Packs/Day Years [...] Procedure Name Priority Date/Time Associated Diagnosis Comments PAP TEST Today 10/01/2020 9:30 EDT Encounter for other general examination CHLAMYDIA/N. GONORRHOEAE AMPLIFIED NUCLEIC ACID, THINPREP Today 10/01/2020 9:30 EDT documented in this encounter Results * PAP TEST (10/01/2020 9:30 EDT) Specimens A. Cervix and/or Endocervix , ThinPrep Imaging System with Manual Evaluation 10/11/2020 14:09 EDT [facility] Specimen Adequacy Satisfactory for Evaluation - transformation zone component present 10/11/2020 14:09 EDT [facility] General Categorization Negative for intraepithelial lesion or malignancy 10/11/2020 14:09 EDT [facility] Attestation . 10/11/2020 14:09 EDT [facility] at 1409 Clinical History See below 10/12/19 14:09 EDT [facility] Performing Lab [facility] 10/11/2020 14:09 EDT [facility] Scanned Images 10/11/2020 14:09 EDT [facility] Papanicolaou smear specimen (specimen) CERVIX UTERI STRUCTURE / Unknown 10/01/2020 9:30 EDT 10/02/2020 15:21 EDT Heather Barton APRN PATHOLOGY ORDERAB LES [facility] [address] [place] [address] * CHLAMYDIA/N. GONORRHOEAE AMPLIFIED RNA, THINPREP (10/01/2020 9:30 EDT) Neisseria gonorrhoeae Result Negative Negative 10/02/2020 16:27 EDT [facility] Chlamydia trachomatis Result Negative Negative 10/02/2020 16:27 EDT [facility] Papanicolaou smear specimen (specimen) CERVIX UTERI STRUCTURE / Unknown 10/01/2020 9:30 EDT 10/02/2020 8:05 EDT Heather Barton APRN MICROBIOLOGY - GE NERAL ORDERABLES [facility] [address] [place] [address] documented in this encounter Visit Diagnoses Diagnosis Encounter for other general examination documented in this encounter Care Teams Tool Tender Relationship Specialty Start Date End Date Unknown, Provider, PCP - General 11/11/18 documented as of this encounter
--- OUTSIDE RECORDS SUMMARY | 2023-12-15 02:45 | XMS_ITS | Encounter Summary ---
Author Organization [facility] Address [address] [place] [address] Care Team Providers Care Game Trapper Name Role Phone Unknown, Provider Primary Care Provider Encounter Details Date Type Department Care Team (Late st Contact Info) Description 09/18/2022 Lab Requisition [facility] Pathology & Laboratory Medicine - [facility] [address] [place] [address] Lucretia Irwin, DO [address] [place], [place] [phone] Other constipation; Chronic anal fissure Social History Tobacco Use Types Packs/Day Years [...] Procedure Name Priority Date/Time Associated Diagnosis Comments SURGICAL PATHOLOGY Today 09/18/2022 8:35 EDT Other constipation Chronic anal fissure documented in this encounter Results * SURGICAL PATHOLOGY (09/18/2022 8:35 EDT) Note to Patient The following pathology results have been interpreted by your pathologist and may be available to you before your health provider has had the opportunity to review them. Please allow time for your provider to receive these results and explore management options, if applicable. 09/23/2022 12:29 [facility] Final Diagnosis A. COLON, CECUM, BIOPSY: - Colonic mucosa with no significant diagnostic abnormalities. - Negative for dysplasia. B. TERMINAL ILEUM, BIOPSY: - Small bowel mucosa with no significant diagnostic abnormalities. - Negative for dysplasia C. COLON, 80 CM, BIOPSY: - Colonic mucosa with no significant diagnostic abnormalities. - Negative for dysplasia. D. COLON, 60 CM, BIOPSY: - Colonic mucosa with no significant diagnostic abnormalities. - Negative for dysplasia. E. COLON, 40 CM, BIOPSY: - Colonic mucosa with no significant diagnostic abnormalities. - Negative for dysplasia. F. COLON, 20 CM, BIOPSY: - Colonic mucosa with no significant diagnostic abnormalities. - Negative for dysplasia. G. RECTUM, BIOPSY: - Mild focal active chronic proctitis. - Negative for dysplasia. 09/23/2022 12:29 [facility] Diagnosis Comment Focal active colitis may be nonspecific but may also be associated with infectious colitis, acute ischemic colitis, irritable bowel syndrome or drug effect (e.g. NSAIDS, colonoscopy preparation solution). It may also be seen in early onset Crohn's disease. Clinical correlation is recommended. Dye Room Helper slides of this case were reviewed at the intradepartmental consultation conference. 09/23/2022 12:29 [facility] Attestation By the signature below, the attending physician certifies that they have 1) personally conducted a gross and/or microscopic examination of the described specimen(s), and/or personally interpreted the results of laboratory testing of the described specimen(s), and 2) personally rendered or confirmed the above diagnosis. 09/23/2022 12:29 [facility] at 1229 Clinical History IBS, chronic anal fissure, rectal hemorrhage 09/23/2022 12:29 EDT [facility] Gross Description A. Received in formalin labelled with proper patient identification (initials C, E) and cecal bx is a serrano-pink tissue measuring 0.4 x 0.3 x 0.1 cm. Submitted intact in A1. B. Received in formalin labelled with proper patient identification (initials C, E) and terminal ileus bx (sic) is a serrano-pink tissue measuring 0.3 x 0.2 x 0.1 cm. Submitted intact in B1. C. Received in formalin labelled with proper patient identification (initials C, E) and biopsy at 80 cm is a light serrano tissue measuring 0.2 x 0.2 x 0.1 cm. Submitted intact in C1. D. Received in formalin labelled with proper patient identification (initials C, E) and biopsy at 60 cm is a light serrano tissue measuring 0.2 x 0.2 x 0.1 cm. Submitted intact in D1. E. Received in formalin labelled with proper patient identification (initials C, E) and biopsy at 40 cm is a light serrano tissue measuring 0.3 x 0.2 x 0.1 cm. Submitted intact in E1. F. Received in formalin labelled with proper patient identification (initials C, E) and biopsy at 20 cm is a light serrano tissue measuring 0.3 x 0.2 x 0.1 cm. Submitted intact in F1. G. Received in formalin labelled with proper patient identification (initials C, E) and rectal biopsy is a light serrano tissue measuring 0.3 x 0.2 x 0.1 cm. Submitted intact in G1. JOE RAZO(ASCP) 09/19/2022 10:41 09/23/2022 12:29 EDT [facility] Performing Lab [facility] 09/23/2022 12:29 T [facility] Scanned Images 09/23/2022 12:29 T [facility] Tissue SPECIMEN FROM RECTUM / Unknown 09/18/2022 8:35 EDT 09/18/2022 19:28 EDT Tissue specimen (specimen) STRUCTURE OF SMALL INTESTINE / Unknown 09/18/2022 8:35 EDT 09/18/2022 19:28 EDT Tissue specimen (specimen) COLON STRUCTURE / Unknown 09/18/2022 8:35 EDT 09/18/2022 19:28 EDT Tissue specimen (specimen) COLON STRUCTURE / Unknown 09/18/2022 8:35 EDT 09/18/2022 19:28 EDT Tissue specimen (specimen) COLON STRUCTURE / Unknown 09/18/2022 8:35 EDT 09/18/2022 19:28 EDT Tissue specimen (specimen) COLON STRUCTURE / Unknown 09/18/2022 8:35 EDT 09/18/2022 19:28 EDT Tissue specimen (specimen) SPECIMEN FROM RECTUM / Unknown 09/18/2022 8:35 EDT 09/18/2022 19:29 EDT Lucretia Irwin DO PATHOLOGY ORDERABLES [facility] [address] [place] [address] documented in this encounter Visit Diagnoses Diagnosis Other constipation Chronic anal fissure Anal fissure documented in this encounter Care Teams Game Trapper Relationship Specialty Start Date End Date Unknown, Provider, PCP - General 11/11/18 documented as of this encounter
--- OUTSIDE RECORDS SUMMARY | 2023-12-15 02:45 | XMS_ITS | Encounter Summary ---
Author Organization [facility] Address [address] [place] [address] Care Team Providers Care Drug Safety Data Management Specialist Name Role Phone Kimberly Lu MD Primary Care Provider [phone] Encounter Details Date Type Department Care Team ([facility] st Contact Info) Description 07/15/2018 Results Only [facility] [phone] Olamide Gordon, [facility] [address] [place] [address] Social History Tobacco Use Types [...] Procedure Name Priority Date/Time Associated Diagnosis Comments CHLAMYDIA/N. GONORRHOEAE AMPLIFIED NUCLEIC ACID Routine 07/15/2018 16:00 EDT ZZVAGINITIS EXAM Routine 07/15/2018 16:0 0 EDT documented in this encounter Results * CHLAMYDIA/N. GONORRHOEAE AMPLIFIED RNA (07/15/2018 16:00 EDT) Chlamydia Result Negative 07/18/2018 14:49 EDT [facility] GC Result Negative 07/18/2018 14:49 EDT [facility] VAGINAL STRUCTURE / Unknown 07/15/2018 16:00 EDT 07/15/2018 18:12 EDT Olamide Gordon DNP MICROBIOLOGY - GENER AL ORDERABLES Performing Organization Address [facility] Co de Phone Number [facility] [address] [place] [address] * VAGINITIS EXAM (07/15/2018 16:00 EDT) Gram Smear Result Yeast forms Present 07/15/2018 22:55 EDT [facility] Gram Smear Result Smear NOT consistent with bacterial vaginosis. 07/15/2018 22:55 EDT [facility] Result No Trichomonas antigen detected. 07/15/2018 21:15 EDT [facility] VAGINAL STRUCTURE / Unknown 07/15/2018 16:00 EDT 07/15/2018 18:10 EDT Comment:Specimen submitted o n a flocked swab. Olamide Gordon DNP MICROBIOLOGY - GENER AL ORDERABLES Performing Organization Address City/[facility] Co de Phone Number [facility] [address] [place] [address] documented in this encounter Visit Diagnoses Not on filedocumented in this encounter Care Teams Drug Safety Data Management Specialist Relationship Specialty Start Date End Date Kimberly Lu MD PCP - General 07/28/17 11/10/18 documented as of this encounter
--- OUTSIDE RECORDS SUMMARY | 2023-12-15 02:45 | XMS_ITS | Encounter Summary ---
Author Organization [facility] Address [address] [place] [address] Care Team Providers Care Collar Fuser Name Role Phone Kimberly Lu MD Primary Care Provider [phone] Reason for Visit * Reason Comments New Patient Visit Lesion - Left thigh Encounter Details Date Type Department Care Team (Late st Contact Info) Description 06/06/2018 8:00 EST Office Visit [facility] Dermatology 3rd Floor [address] [address] Chris Pina MD [address] [facility], Level 5 [place] [phone] Rash (Primary Dx) Social History Tobacco Use Types Packs/Day Years [...] No 08/05/2017 documented as of this encounter Progress Notes * Lisa Taylor - 06/06/2018 0800 EST Review of Systems Constitutional: Negative for fatigue, fever and unexpected weight change. HENT: Negative for mouth sores. Eyes: Negative for pain. Respiratory: Negative for cough and shortness of breath. Cardiovascular: Negative for chest pain and palpitations. Gastrointestinal: Negative for abdominal pain, blood in stool, constipation, diarrhea, nausea and vomiting. Genitourinary: Negative for dysuria, frequency and hematuria. Musculoskeletal: Negative for myalgias, joint swelling, arthralgias and muscle stiffness in the morning. Skin: Negative for rash. Neurological: Negative for numbness and headaches. Endo/Heme/Allergies: Does not bruise/bleed easily. Psychiatric/Behavioral: Negative for sleep disturbance. The patient is not nervous/anxious. Lisa Taylor 06/06/2018 8:00 * Júnior Muniz MD - 06/06/2018 0800 EST Images from the original note were not included. Dermatology Outpatient Visit Note Chief Complaint Patient presents with ??? New Patient Visit Lesion - Left thigh Dermatologic History: - None Last Dermatology office visit: new patient SUBJECTIVE Ms. Mcneil is a 17 y.o. female who presents for new evaluation and treatment for for spots on left thigh. Patient first noticed a spot on her left thigh 4-5 weeks ago that was red with blue in the middle and then crusted over. It was mildly itchy at the time. Now has healed. She currently has two similar lesions on her more distal thigh. She does not remember trauma or bites to the area. No similar lesions anywhere else. She was seen at urgent care who gave her mupirocin which she has not used yet. Otherwise, patient denies any spots that are changing, bleeding, itching, painful. In usual state of health otherwise. For full Medical, Surgical, Family, and Social histories, please see the History section of this encounter in the electronic chart which I have personally reviewed. For Review of Systems, Medications and Allergies, please see those sections of this encounter in the electronic chart which I have also reviewed. She has a current medication list which includes the following prescription(s): desogestrel-ethinylestradiol, multivitamins with minerals, mupirocin calcium, and ranitidine. She is allergic to amoxicillin. OBJECTIVE VS: There were no vitals taken for this visit. Ms. Mcneil is healthy female sitting on the examination table with a normal affect. She is alert and oriented to person, place and time. She has Brown type II skin. Cutaneous full body examination including the hair, scalp, face, eyelids, lips, neck, chest, back, abdomen, all four extremities, hands, feet, digits and nails was performed.The examination was normal with the addition of the following comments: There were no lesions suspicious for malignancy. - Left thigh: 3x 3-5mm crusted erythematous pink papules ASSESSMENT and PLAN 1. Rash NOS: favor arthropod assault vs staph/step infection (echthyma) vs less likely LyP vs other - Biopsy would be low yied today given fact that it is healing - Recommend starting the mupirocin - If new spots develop, call/RTC for biopsy She will f/u as planned or in the interim should problems arise. Júnior Muniz MD 06/06/2018 8:01 Attestation Statement: I saw and examined the patient with the resident/fellow. I agree with the findings and plan of care documented in the resident's/fellow's note. Chris Pina MD Dermatology [facility] documented in this encounter Plan of Treatment Not on file documented as of this encounter Visit Diagnoses Diagnosis Rash- Primary Rash and other nonspecific skin eruption documented in this encounter Care Teams Collar Fuser Relationship Specialty Start Date End Date Kimberly Lu MD PCP - General 07/28/17 11/10/18 documented as of this encounter
--- OUTSIDE RECORDS SUMMARY | 2023-12-15 02:45 | XMS_ITS | Encounter Summary ---
Author Organization [facility] Address [address] [place] [address] Care Team Providers Care Learning Disabilities Teacher Name Role Phone Unknown, Provider Primary Care Provider [phone] Encounter Details Date Type Department Care Team (Latest Contact Info) Description 12/23/2018 16:49 EDT - 12/23/2018 17:23 EDT Hospital Encounter [address] [address] Kimberly Gallegos MD [address] [place] [phone] Discharge Disposition: Home or Self Care Social [...] as of this encounter Discharge Diagnoses Diagnosis R30.0 Dysuria-R30.0[ICD-10-CM] documented in this encounter Medications at Time [...] on filedocumented in this encounter Care Teams Learning Disabilities Teacher Relationship Specialty Start Date End Date Unknown, Provider, PCP - General 11/11/18 documented as of this encounter
--- OUTSIDE RECORDS SUMMARY | 2023-12-15 02:45 | XMS_ITS | Encounter Summary ---
Author Organization [facility] Address [address] [place] [address] Care Team Providers Care Cap Machine Operator Name Role Phone Unknown, Provider Primary Care Provider [phone] Encounter Details Date Type Department Care Team (Late st Contact Info) Description 05/04/2022 Lab Requisition [facility] Pathology & Laboratory Medicine - [address] [address] Outr Resulting Lab, Provider Social History Tobacco Use Types Packs/Day Years [...] Procedure Name Priority Date/Time Associated Diagnosis Comments CELIAC DISEASE PANEL Today 05/04/2022 11:26 EST HOLD SST Today 05/04/2022 11:26 EST LYME AB Today 05/04/2022 11:26 EST ANTI NUCLEAR AB (CHARMAINE), IFA Today 05/04/2022 11:26 EST documented in this encounter Results * HOLD SST (05/04/2022 11:26 EST) Hold Hold 05/04/2022 18:01 EST [facility] Blood VENOUS BLOOD / Unknown 05/04/2022 11:26 EST 05/04/2022 17:01 EST Provider Outr Resulting Lab LAB INFO SER VICE AND SUPPORT & PHONE RESULT Performing Organization Address [facility] Co de Phone Number [facility] [address] [place] [address] * LYME AB (05/04/2022 11:26 EST) Lyme Ab Negative Negative 05/05/2022 9:54 EST [facility] Blood VENOUS BLOOD / Unknown 05/04/2022 11:26 EST 05/04/2022 17:01 EST Provider Outr Resulting Lab IMMUNOLOGY A ND SEROLOGY ORDERABLES Performing Organization Address [facility] Phone Number [facility] [address] [place] [address] * ANTI NUCLEAR AB (CHARMAINE), IFA (05/04/2022 11:26 EST) CHARMAINE Interpretation Negative Negative 2022 14:07 EST [facility] Comment:No titer performed, CHARMAINE Screen is negative. Blood VENOUS BLOOD / Unknown 05/04/2022 11:26 EST 05/04/2022 17:01 EST Narrative [facility] - 05/06/2022 14:07 EST Results were obtained with the IN[employer] NOVA Lite HEp-2 CHARMAINE Kit by indirect immunofluorescence. Provider Outr Resulting Lab IMMUNOLOGY A ND SEROLOGY ORDERABLES Performing Organization Address City/[facility]/ZIP Co de Phone Number [facility] [address] [place] [address] * CELIAC DISEASE PANEL (05/04/2022 11:26 EST) Tissue Transglutaminase Antibody IGA <1.2 <4.0 U/mL 05/07/2022 12:49 EST [facility] Comment: A negative result may be due to IgA deficiency and does not rule out celiac disease. ? Negative: ??<4.0 U/mL ? Weak Positive: ??4.0 - 10.0 U/mL ? Positive: ??>10.0 U/mL Results were obtained with the TearSolutionsA Lite R h-tTG IgA MARAL assay on the [employer]. IgA 205 85 - 499 mg/dL 05/07/2022 12:49 EST [facility] Celiac Disease Interpretation Negative Serology. Celiac disease unlikely. Approximately 10% of patients with celiac disease are seronegative. Patients who are already adhering to a gluten-free diet may also be seronegative. If celiac disease is highly clinically suspected, referral to gastroenterology for additional evaluation is recommended. 05/07/2022 12:49 EST [facility] Blood VENOUS BLOOD / Unknown 05/04/2022 11:26 EST 05/04/2022 17:01 EST Provider Outr Resulting Lab IMMUNOLOGY A ND SEROLOGY ORDERABLES Performing Organization Address [facility] Co de Phone Number [facility] [address] [place] [address] documented in this encounter Visit Diagnoses Not on filedocumented in this encounter Care Teams Cap Machine Operator Relationship Specialty Start Date End Date Unknown, Provider, PCP - General 11/11/18 documented as of this encounter
--- OUTSIDE RECORDS SUMMARY | 2023-12-15 02:45 | XMS_ITS | Encounter Summary ---
Author Organization [facility] Address [address] [place] [address] Care Team Providers Care Bulk Intake Worker Name Role Phone Kimberly Lu MD Primary Care Provider [phone] Reason for Visit * Reason Onset Date Comments Hospital Discharge Follow Up 06/04/2018 Encounter Details Date Type Department Care Team (Late st Contact Info) Description 06/04/2018 Telephone [facility] Primary Care [facility] - [address] [id number] Jayda Thompson, RN [address] [place] [address] Hospital Discharge Follow Up Social History Tobacco Use Types Packs/Day Years [...] encounter Miscellaneous Notes * Telephone Encounter - Janny Wisdom RN - 06/06/2018 0900 EST Spoke with pt- Pt reports that she is doing well. Denies questions/concerns. Reviewed s/s of infection with pt. Pt prompted to call office with question/concerns * Telephone Encounter - Jayda Thompson RN - 06/04/2018 0931 EST Outgoing call to the pt. Pt was unavailable and voice mail box was full. * Telephone Encounter - Jayda Thompson RN - 06/04/2018 0823 EST Left anterior thigh with healing scab about 2 mm. About 10 cm distal and medial is another lesion: there is a 2 mm ulceration,. Shallow, clean base, adjacent there is a 2 mm pustule, with about 1.5 cm surrounding erythema and induration. minimal tenderness. No lymphangitis No fluctuance Lesion was unroofed. No material was really able be be expressed. What little was there was sent for culture. bactroban prescribed. F/u with derm as planned. ?? Dr. Josee Brody was available for consultation during my care of this patient. documented in this encounter Plan of Treatment Not on file documented as of this encounter Visit Diagnoses Not on filedocumented in this encounter Care Teams Bulk Intake Worker Relationship Specialty Start Date End Date Kimberly Lu MD PCP - General 07/28/17 11/10/18 documented as of this encounter
--- OUTSIDE RECORDS SUMMARY | 2023-12-15 02:45 | XMS_ITS | Encounter Summary ---
Author Organization [facility] Address [address] [place] [address] Care Team Providers Care Automobile Body Repairer Helper Name Role Phone Unknown, Provider Primary Care Provider [phone] Encounter Details Date Type Department Care Team (Late st Contact Info) Description 07/30/2021 Lab Requisition [facility] Pathology & Laboratory Medicine - [address] [address] Outr Resulting Lab, Provider Social History Tobacco [...] Comments CHLAMYDIA/N. GONORRHOEAE AMPLIFIED NUCLEIC ACID Routine 07/29/2021 13:30 EDT documented in this encounter Results * CHLAMYDIA/N. GONORRHOEAE AMPLIFIED RNA (07/29/2021 13:30 EDT) Neisseria gonorrhoeae Result Negative Negative 07/31/2021 15:25 EDT [facility] Chlamydia trachomatis Result Negative Negative 07/31/2021 15:25 EDT [facility] Swab ENTIRE WALL OF CERVIX / Unknown 07/29/2021 13:30 EDT 07/30/2021 17:01 EDT Provider Outr Resulting Lab MICROBIOLOGY - GENERAL ORDERABLES [facility] [address] [place] [address] documented in this encounter Visit Diagnoses Not on filedocumented in this encounter Care Teams Automobile Body Repairer Helper Relationship Specialty Start Date End Date Unknown, Provider, PCP - General 11/11/18 documented as of this encounter
--- OUTSIDE RECORDS SUMMARY | 2023-12-15 02:46 | XMS_ITS | Encounter Summary ---
Author Organization [facility] [place] [address] Care Team Providers Care Shirt Ironer Supervisor Name Role Phone Yael Munguia MD Primary Care Provider [phone] Reason for Visit * Reason Comments Follow-up Encounter Details Date Type Department Care Team (Late st Contact Info) Description 07/20/2013 8:00 AM EDT Office Visit Dermatology at [address] [place] [phone] Wiliam Lynne MD [address], [place] [address] Verruca vulgaris (Primary Dx) Social History Tobacco Use Types Packs/Day Years Used Date Smoking Tobacco: Never Alcohol Use Standard Drinks/Week Comments Not Asked 0 (1 standard drink = 0.6 oz pur e alcohol) Sex and Gender Information Value Date Recorded Sex Assigned at Not on file Gender Identity Not on file Sexual Orientation Not on file documented as of this encounter Patient Instructions * Patient Instructions* Theodora Spann LPN - 07/20/2013 7:59 AM EDT Images from the original note were not included. [facility] Plantar Warts: After Your Visit Your Care Instructions A plantar wart is a harmless skin growth. Plantar warts occur on the bottom of your feet and may bepainful when you walk. A virus makes the top layer of skin grow quickly, causing a wart. Warts usually go away on their own in months or years. Warts are spread easily. You can infect yourself again by touching the wart and then touching another part of your body. You also can infect others by sharing towels, razors, or other personal items. Most plantar warts do not need treatment. But if warts cause you pain or spread, your doctor may recommend that you use an zude-gmj-ifwtayv treatment. These include salicylic acid or duct tape. Your doctor may prescribe a stronger medicine to put on warts or may inject them with medicine. Your doctor also can remove warts through surgery or by freezing them. Follow-up care is a valdovinos part of your treatment and safety. Be sure to make and go to all appointments, and call your doctor if you are having problems. It???s also a good idea to know your test results and keep a list of the medicines you take. How can you care for yourself at home? ?? Use salicylic acid or duct tape as your doctor directs. You put the medicine or the tape on a wart for a while and then file down the skin on the wart. You use the salicylic acid treatment for 2 to 3 months or the tape for 1 to 2 months. ?? If your doctor prescribes medicine to put on warts, use it exactly as prescribed. Call your doctor if you think you are having a problem with your medicine. ?? Wear comfortable shoes and socks. Avoid high heels or shoes that put a lot of pressure on your foot. ?? Pad the wart with doughnut-shaped felt or a moleskin patch. You can buy these at a drugstore. Put the pad around the plantar wart so that it relieves pressure on the wart. You also can place pads or cushions in your shoes to make walking more comfortable. ?? Take an neny-dxk-aazeusv medicine, such as acetaminophen (Tylenol), ibuprofen (Advil, Motrin), or naproxen (Aleve) if you have pain. Read and follow all instructions on the label. ?? Do not take two or more pain medicines at the same time unless the doctor told you to. Many painmedicines have acetaminophen, which is Tylenol. Too much acetaminophen (Tylenol) can be harmful. When should you call for help? Call your doctor now or seek immediate medical care if: ?? You have signs of infection, such as: ?? Increased pain, swelling, warmth, or redness. ?? Red streaks leading from a wart. ?? Pus draining from a wart. ?? A fever. ?? You have diabetes or peripheral arterial disease and the skin over a plantar wart is red, broken, or swollen. These diseases can reduce blood flow and feeling in your feet. This could make it easier for you to get an infection. Watch closely for changes in your health, and be sure to contact your doctor if: ?? You cannot walk without pain. ?? You have a new growth and you are not sure that it is a wart. ?? You still have warts after 2 to 3 months of rcum-ydy-qesauwr treatment. ?? Your warts are growing or spreading quickly even with treatment. Where can you learn more? Visit our [employer] information library at http://[employer] You can also view health information on [employer], your personal patient account. Log in or sign up today. Enter S429 in the search box to learn more about Plantar Warts: After Your Visit. ?? [id number] [employer]. Care instructions adapted under license by [facility]. This care instruction is for use with your licensed healthcare professional. If you have questions about a medical condition or this instruction, always ask your healthcare professional. [employer] disclaims any warranty or liability for your use of this information. Content Version: 9.9.339054; Last Revised: November 29, 2012 documented in this encounter Progress Notes * Wiliam Lynne MD - 07/20/2013 8:07 AM EDT Problem: Followup of verruca vulgaris, underside of right hallux, new site left palmar hand Brenna follows up today with her mother, Bernice. She has been using the Aldara cream and is now down to her last packet. She has been occluding the right hallux verruca site with real duct tape. Physical examination today reveals a 1 cm area of erythema and some overlying adherent scab, but no obvious verrucae remaining. She does have a new verruca on the palm of her left hand. Assessment and Plan: 1. Verruca vulgaris, left palmar hand. a. LN2 times three applied to site. 2. Plantar wart, right great hallux. a. Finish remaining packet of Aldara, then DC, and also leave open to air. b. Return to clinic in two weeks for repeat check. c. Patient had applied EMLA cream prior to today's visit, but I deemed it not necessary to use any bleomycin today. documented in this encounter Plan of Treatment Not on file documented as of this encounter Visit Diagnoses Diagnosis Verruca vulgaris- Primary Viral warts, unspecified documented in this encounter Care Teams Shirt Ironer Supervisor Relationship Specialty Start Date End Date Yael Munguia MD [address] [place] [address] PCP - General 05/14/11 04/20/21 documented as of this encounter
--- OUTSIDE RECORDS SUMMARY | 2023-12-15 02:46 | XMS_ITS | Encounter Summary ---
[place] [address] Care Team Providers Care Sexual Assault Nurse Name Role Phone Yael Munguia MD Primary Care Provider [phone] Reason for Visit * Reason Comments Follow-up Encounter Details Date Type Department Care Team (Late st Contact Info) Description 04/14/2013 3:45 PM EST Office Visit Dermatology at [address] [place] [phone] Wiliam Lynne MD [address] [facility], [place] [address] Verruca vulgaris (Primary Dx) Social History Tobacco Use Types Packs/Day Years Used Date Smoking Tobacco: Never Alcohol Use Standard Drinks/Week Comments Not Asked 0 (1 standard drink = 0.6 oz pur e alcohol) Sex and Gender Information Value Date Recorded Sex Assigned at Not on file Gender Identity Not on file Sexual Orientation Not on file documented as of this encounter Progress Notes * Wiliam Lynne MD - 04/14/2013 4:17 PM EST Problem: Followup of verrucae vulgaris. Brenna follows up today, a little bit over a month following her C and D removal of the three wart sites. Physical examination reveals still scab present over the largest site underneath her right hallux. It is difficult to tell, but it appears that there may be some recurrent verrucous tissue at the distal superior end of the C and D site. The smaller sites appear to be healing well. She is walking well again now and able to dance. Assessment and Plan: 1. Verrucae vulgaris. a. Difficult to ascertain whether verruca actually remains or not; however, I suspect there may be some left. b. Asked mom to contact us once the scab falls off and we will go over the appearance of the site. If the verruca has recurred, may need to consider bleomycin injection. COPY: Yael Munguia M.D. documented in this encounter Plan of Treatment Not on file documented as of this encounter Visit Diagnoses Diagnosis Verruca vulgaris- Primary Viral warts, unspecified documented in this encounter Care Teams Sexual Assault Nurse Relationship Specialty Start Date End Date Yael Munguia MD [address] [place] [address] PCP - General 05/14/11 04/20/21 documented as of this encounter
--- OUTSIDE RECORDS SUMMARY | 2023-12-15 02:46 | XMS_ITS | Encounter Summary ---
Author Organization [facility] Address [facility] [address] Care Team Providers Care Geothermal Field Technician Name Role Phone Yael Munguia MD Primary Care Provider [phone] Encounter Details Date Type Department Care Team (Late st Contact Info) Description 04/03/2021 Orders Only XRay at [address] [place] [address] Binta Girard, RN [facility] [address] [place] [address] Social History Tobacco Use Types Packs/Day Years Used Date Smoking Tobacco: Never Smokeless Tobacco: Never Alcohol Use Standard Drinks/Week Comments Not Asked 0 (1 standard drink = 0.6 oz pur e alcohol) Sex and Gender Information Value Date Recorded Sex Assigned at Not on file Gender Identity Not on file Sexual Orientation Not on file documented as of this encounter Plan of Treatment Not on file documented as of this encounter Visit Diagnoses Not on filedocumented in this encounter Care Teams Geothermal Field Technician Relationship Specialty Start Date End Date Yael Munguia MD [address] [place] [address] [place] [address] PCP - General 05/14/11 04/20/21 documented as of this encounter
--- OUTSIDE RECORDS SUMMARY | 2023-12-15 02:46 | XMS_ITS | Encounter Summary ---
[place] [address] Care Team Providers Care Store Product Demonstrator Name Role Phone Yael Munguia MD Primary Care Provider [phone] Reason for Visit * Reason Comments Follow-up Encounter Details Date Type Department Care Team (Late st Contact Info) Description 08/10/2013 8:45 AM EDT Office Visit Dermatology at [address] [place] [phone] Wiliam Lynne MD [address], [facility] [place] [address] Verruca vulgaris (Primary Dx) Social History Tobacco [...] Progress Notes * Wiliam Lynne MD - 08/10/2013 8:59 AM EDT Problem: Followup verruca vulgaris, right hallux and new site left palmar hand. Brenna follows up today with her father, Yoel. Unfortunately, it is difficult to evaluate the wart underneath her right hallux, as there is an adherent crust scab there today, as there was last visit also. She has a verrucous papule still on the left palmar hand. She had a good reaction to the LN2 last visit but without resolution of this new wart site. Assessment and Plan: 1. Verruca vulgaris, left palmar hand. a. LN2 times three applied to this site. b. Return to clinic in another three weeks for repeat check. 2. Plantar wart, right hallux. a. As per my request patient has not been applying Aldara to this site, has been leaving it open to the air. b. Crust and scab makes it difficult to evaluate for any residual wart. No treatment applied today. c. Return to clinic in another three weeks for repeat check of this. documented in this encounter Plan of Treatment Not on file documented as of this encounter Visit Diagnoses Diagnosis Verruca vulgaris- Primary Viral warts, unspecified documented in this encounter Care Teams Store Product Demonstrator Relationship Specialty Start Date End Date Yael Munguia MD [address] [place] [address] PCP - General 05/14/11 04/20/21 documented as of this encounter
--- OUTSIDE RECORDS SUMMARY | 2023-12-15 02:46 | XMS_ITS | Encounter Summary ---
[place] [address] Care Team Providers Care Vacuum Caster Name Role Phone Yael Munguia MD Primary Care Provider [phone] Reason for Visit * Reason Comments Follow-up Encounter Details Date Type Department Care Team (Late st Contact Info) Description 01/05/2013 4:00 PM EDT Office Visit Dermatology [address] [facility] [address] [place] [address] Wiliam Lynne MD [address] [place] [address] RD, [place] [address] Verruca vulgaris (Primary Dx) Social History Tobacco [...] Progress Notes * Wiliam Lynne MD - 01/05/2013 4:20 PM EDT Problem is followup verruca. Brenna follows up with her mother, Alysha. Unfortunately, the warts really have not budged much. She had a brisk reaction to the Canthacur in the red bottle, but the wart still remains about the same size on the underside of her right hallux and a smaller tiny one on the tip of her left fifth toe. Physical examination confirms this. Assessment and Plan: Verruca vulgaris. a. Today both sites were treated with LN2 times three aggressively. b. Then apply Aldara cream on a nightly basis on sites, taping with duct tape and occlude overnight. c. Return to clinic in two weeks for repeat check. d. Patient did not apply EMLA cream as requested prior to this appointment but will try to do that next time. May need to inject with lidocaine and use more aggressive liquid nitrogen and/or bleomycin to treat, particularly the right hallux site. documented in this encounter Plan of Treatment Not on file documented as of this encounter Visit Diagnoses Diagnosis Verruca vulgaris- Primary Viral warts, unspecified documented in this encounter Care Teams Vacuum Caster Relationship Specialty Start Date End Date Yael Munguia MD [address] [place] [address] PCP - General 05/14/11 04/20/21 documented as of this encounter
--- OUTSIDE RECORDS SUMMARY | 2023-12-15 02:46 | XMS_ITS | Encounter Summary ---
[place] [address] Care Team Providers Care Tea Plantation Worker Name Role Phone Angie Cardenas MD Primary Care Provider [phone] Reason for Visit * Reason Comments Verrucous Vulgaris Encounter Details Date Type Department Care Team (Late st Contact Info) Description 01/15/2011 4:30 PM EDT Office Visit Dermatology [address] [facility] [address] [place] [address] Wiliam Lynne MD [address] [place] [address] RD, [place] [address] Verruca vulgaris (Primary Dx) Social History Tobacco [...] Progress Notes * Wiliam Lynne MD - 01/15/2011 5:15 PM EDT Problem: Followup verruca vulgaris. Brenna follows up and is doing well. She tolerated the two hours of Canthacur PS in the red bottle well. She left it on for two hours and she had a brisk but acceptable reaction. Physical examination reveals that the warts are much smaller present as diagrammed on the accompanying flow sheet. Assessment & Plan: Plantar warts left palmar hand. a. Today Canthacur PS in the red bottle again applied to be left on for two hours under tape occlusion then wash off. b. RTC in three weeks for repeat check and potentially for repeat application. documented in this encounter Plan of Treatment Not on file documented as of this encounter Visit Diagnoses Diagnosis Verruca vulgaris- Primary Viral warts, unspecified documented in this encounter Care Teams Tea Plantation Worker Relationship Specialty Start Date End Date Angie Cardenas MD [facility] [place] [address] PCP - General 03/18/10 05/13/11 documented as of this encounter
--- OUTSIDE RECORDS SUMMARY | 2023-12-15 02:46 | XMS_ITS | Encounter Summary ---
[place] [address] Care Team Providers Care Oxide Furnace Tender Name Role Phone Angie Cardenas MD Primary Care Provider [phone] Reason for Visit * Reason Comments Verrucous Vulgaris Encounter Details Date Type Department Care Team (Late st Contact Info) Description 02/26/2011 11:15 AM EDT Office Visit Dermatology [address] [facility] [address] [place] [address] Wiliam Lynne MD [address] [place] [address] RD, [facility] [address] Verruca vulgaris (Primary Dx) Social History Tobacco [...] Progress Notes * Wiliam Lynne MD - 02/26/2011 11:12 AM EDT Problem: Followup verruca vulgaris left hand. Brenna follows up and has just three warts remaining on the left hand. Physical examination reveals three verrucae present on the palmar aspects of the fingers of her left hand. Assessment & Plan: Plantar warts left hand. a. Today Canthacur PS in the red bottle was applied to be left on under tape occlusion for two hours then wash off. The patient tolerated this last visit very well. b. RTC p.r.n. documented in this encounter Plan of Treatment Not on file documented as of this encounter Visit Diagnoses Diagnosis Verruca vulgaris- Primary Viral warts, unspecified documented in this encounter Care Teams Oxide Furnace Tender Relationship Specialty Start Date End Date Angie Cardenas MD [facility] DR [facility]ILD [facility]VOC[facility] [place] [address] PCP - General 03/18/10 05/13/11 documented as of this encounter
--- OUTSIDE RECORDS SUMMARY | 2023-12-15 02:46 | XMS_ITS | Encounter Summary ---
[place] [address] Care Team Providers Care Experimental Plastics Fabricator Name Role Phone Austyn James APRN Primary Care Provider [phone] Reason for Referral * Diagnostic Test (Routine) - Closed Specialty Diagnoses / Procedures Referred By Contac t Referred To Contact Radiology Diagnoses Tear of left acetabular labrum, initial encounter Procedures MRI Arthrogram Hip Left Lucio Maldonado MD [address] [place] [address] [place] [address] Referral ID Status Reason Start Date Expiration Date V isits Requested Visits Authorized [id number] Closed Specialty Service Requested 04/04/2021 04/30/2021 1 1 Reason for Visit * Diagnostic Test (Routine) - Closed Specialty Diagnoses / Procedures Referred By Contac t Referred To Contact Radiology Diagnoses Tear of left acetabular labrum, initial encounter Procedures MRI Arthrogram Hip Left Lucio Maldonado MD [address] [place] [address] [place] [address] Referral ID Status Reason Start Date Expiration Date V isits Requested Visits Authorized [id number] Closed Specialty Service Requested 04/04/2021 04/30/2021 1 1 Encounter Details Date Type Department Care Team (Latest Contact Info) Description 04/21/2021 9:26 AM EST - 04/21/2021 11:59 PM EST [place] [phone] Lucio Maldonado MD [address] [place] [address] Tear of left acetabular labrum, initial encounter Discharge Disposition: Home Social History Tobacco Use Types Packs/Day Years Used Date Smoking Tobacco: Never Smokeless Tobacco: Never Alcohol Use Standard Drinks/Week Comments Not Asked 0 (1 standard drink = 0.6 oz pur e alcohol) Sex and Gender Information Value Date Recorded Sex Assigned at Not on file Gender Identity Not on file Sexual Orientation Not on file documented as of this encounter Medications at Time of Discharge Medication Sig Dispensed Refills Start Date End Date ENSKYCE 0.15-0.03 mg Tablet take 1 tablet by mouth once daily 0 04/15/2017 documented as of this encounter Plan of Treatment Not on file documented as of this encounter Procedures Procedure Name Priority Date/Time Associated Diagnosis Comments MRI ARTHROGRAM HIP LEFT Routine 04/21/2021 11:30 AM EST Tear of left acetabular labrum, initial encounter documented in this encounter Results * MRI Arthrogram Hip Left (04/21/2021 11:30 AM EST) Anatomical Region Laterality Modality Hip Left Magnetic Resonan ce Impressions 04/21/2021 11:48 AM EST 1. Nondisplaced left anterior-anterosuperior labral tear with normal cartilage. The left hip alpha angle is normal, but there are synovial herniation cyst and small bump at the anterior and lateral femoral head/neck junction, respectively. 2. Mild left gluteus medius insertional tendinosis. Thank you for letting us participate in the care of this patient. ??If you are a health care provider and have any questions regarding this report, please contact the number below. ??For patients who have questions please contact the health critical care cns that requested your imaging first. ? Electronically signed by: Gege Bowers MD, [facility] ([phone]), at 04/21/2021 11:48 AM Narrative 04/21/2021 11:48 AM EST EXAMINATION: MRI ARTHROGRAM HIP LEFT CLINICAL HISTORY: ZORAIDA left hip; tear of left acetabular labrum, initial encounter TECHNIQUE: Following the intra-articular administration of dilute gadolinium based contrast, MRI of the left hip was performed using axial PD FS; axial oblique T1 FS; coronal T1 FS, T2 FS and sagittal PD FS sequences. Full pelvis [id number] coronal T1 and STIR sequences are provided. COMPARISON: Fluoroscopic guided left hip contrast injection April 21, 2021 FINDINGS: Contrast adequately distributed throughout the hip joint with small intravasation of the anterior capsule and deep-lateral surface of iliacus. Bone: A 7 mm subchondral cyst at the anterior left femoral head and neck junction has minimal surrounding marrow edema. Lateral to this cyst, there is a small bump (series 7 image 15). Otherwise intact with normal marrow signal. Left hip alpha angle measures less than 55 degrees. Cartilage: Intact. Labrum: Intrasubstance tear of the anterior labrum (series 5 image 18) communicates with the anterosuperior chondral labral junction tear (series 5 images 12-18; series 9 image 22). Remaining labrum and capsuloligamentous structures are intact. Effusion: None at the sacroiliac joints, right hip or pubic symphysis. Tendons: Intact flexors, hamstrings, adductor and abductors. Mild edema around gluteus medius insertion on left greater trochanter without tear. No bursal fluid collection. Muscle: Bulk and signal are normal and symmetric. Neurovascular: Normal course, caliber and signal. Pelvis: Spacing and alignment are preserved at the sacroiliac joints and pubic symphysis. Small, physiologic fluid in the pelvis. No adenopathy, solid or cystic soft tissue mass. Procedure Note Gege Bowers MD - 04/21/2021 EXAMINATION: MRI ARTHROGRAM HIP LEFT CLINICAL HISTORY: ZORAIDA left hip; tear of left acetabular labrum, initial encounter TECHNIQUE: Following the intra-articular administration of dilutegadolinium based contrast, MRI of the left hip was performed using axial PD FS;axial oblique T1 FS; coronal T1 FS, T2 FS and sagittal PD FS sequences. Fullpelvis [id number] coronal T1 and STIR sequences are provided. COMPARISON: Fluoroscopic guided left hip contrast injection March FINDINGS: Contrast adequately distributed throughout the hip joint with small intravasation of the anterior capsule and deep-lateral surface ofiliacus. Bone: A 7 mm subchondral cyst at the anterior left femoral head and neck junction has minimal surrounding marrow edema. Lateral to this cyst, thereis a small bump (series 7 image 15). Otherwise intact with normal marrowsignal. Left hip alpha angle measures less than 55 degrees. Cartilage: Intact. Labrum: Intrasubstance tear of the anterior labrum (series 5 image 18) communicates with the anterosuperior chondral labral junction tear (series5 images 12-18; series 9 image 22). Remaining labrum andcapsuloligamentous structures are intact. Effusion: None at the sacroiliac joints, right hip or pubic symphysis. Tendons: Intact flexors, hamstrings, adductor and abductors. Mild edemaaround gluteus medius insertion on left greater trochanter without tear. Nobursal fluid collection. Muscle: Bulk and signal are normal and symmetric. Neurovascular: Normal course, caliber and signal. Pelvis: Spacing and alignment are preserved at the sacroiliac joints andpubic symphysis. Small, physiologic fluid in the pelvis. No adenopathy, solidor cystic soft tissue mass. IMPRESSION 1. Nondisplaced left anterior-anterosuperior labral tear with normalcartilage. The left hip alpha angle is normal, but there are synovial herniation cystand small bump at the anterior and lateral femoral head/neck junction,respectively. 2. Mild left gluteus medius insertional tendinosis. Thank you for letting us participate in the care of this patient. If youare a health care provider and have any questions regarding this report,please contact the number below. For patients who have questions please contactthe health critical care cns that requested your imaging first. Lucio Maldonado MD IMG MRI ORDERABLES documented in this encounter Visit Diagnoses Diagnosis Tear of left acetabular labrum, initial encounter documented in this encounter Care Teams Experimental Plastics Fabricator Relationship Specialty Start Date End Date Austyn James, FOOD SAFETY AUDITOR [address] [place] [address] [address] [facility] [place] [address] PCP - General Family Medicine 04/21/21 documented as of this encounter
--- OUTSIDE RECORDS SUMMARY | 2023-12-15 02:46 | XMS_ITS | Encounter Summary ---
[place] [address] Care Team Providers Care Order Tracer Name Role Phone Angie Cardenas MD Primary Care Provider [phone] Reason for Visit * Reason Comments Verrucous Vulgaris Encounter Details Date Type Department Care Team (Late st Contact Info) Description 12/31/2010 4:00 PM EDT Office Visit Dermatology [address] [facility] [address] [place] [address] Wiliam Lynne MD [address] [place] [address] RD, [facility] [address] Verruca vulgaris (Primary Dx) Social History Tobacco [...] Progress Notes * Wiliam Lynne MD - 12/31/2010 4:46 PM EDT Problem: Followup verruca vulgaris. Brenna follows up and was not willing to try the oral Vitamin-A so that was not started. The liquid nitrogen unfortunately applied last visit did not bring resolution to the five warts. Physical examination confirms that they are still present as diagrammed on the accompanying flow sheet. Assessment & Plan: Plantar warts, left palmar hand. a. Today Canthacur PS in the red bottle was applied to be left on under tape occlusion for two hours then wash off. b. Patient tolerated well. c. RTC in three weeks for repeat check and repeat application. documented in this encounter Plan of Treatment Not on file documented as of this encounter Visit Diagnoses Diagnosis Verruca vulgaris- Primary Viral warts, unspecified documented in this encounter Care Teams Order Tracer Relationship Specialty Start Date End Date Angie Cardenas MD [facility] [place] [address] PCP - General 03/18/10 05/13/11 documented as of this encounter
--- OUTSIDE RECORDS SUMMARY | 2023-12-15 02:46 | XMS_ITS | Encounter Summary ---
Author Organization [facility] [place] [address] Care Team Providers Care Police Judge Name Role Phone Yael Munguia MD Primary Care Provider [phone] Reason for Visit * Reason Comments Follow-up Encounter Details Date Type Department Care Team (Late st Contact Info) Description 06/02/2013 9:15 AM EST Office Visit Dermatology at [address] [place] [phone] Wiliam Lynne MD [address] [place] [address], [place] [address] Verruca vulgaris (Primary Dx) Social History Tobacco [...] Progress Notes * Wiliam Lynne MD - 06/02/2013 10:02 AM EST Problem: Followup of verruca vulgaris. Brenna follows up and, unfortunately, her insurance would not give her enough Aldara cream to use on a daily basis. It was just being used thrice weekly. Physical examination reveals still verruca present. In fact, it appears to be growing back rapidly at the site of the C and D treatment on the underside of her right hallux. The verruca site at the base of her right second toe on the plantar surface has resolved and has not recurred. Assessment and Plan: 1. Plantar wart, right great hallux. a. Today, site was anesthetized (patient had applied EMLA cream in advance) and the superficial bleomycin poke method was used. b. Recommend I see the patient again in another three weeks for repeat check. c. Discussed wound care instructions. documented in this encounter Plan of Treatment Not on file documented as of this encounter Visit Diagnoses Diagnosis Verruca vulgaris- Primary Viral warts, unspecified documented in this encounter Care Teams Police Judge Relationship Specialty Start Date End Date Yael Munguia MD [address] [place] [address] PCP - General 05/14/11 04/20/21 documented as of this encounter
--- OUTSIDE RECORDS SUMMARY | 2023-12-15 02:46 | XMS_ITS | Encounter Summary ---
[place] [address] Care Team Providers Care Pouring Crane Operator Name Role Phone Yael Munguia MD Primary Care Provider [phone] Reason for Visit * Reason Comments Follow-up Encounter Details Date Type Department Care Team (Late st Contact Info) Description 01/19/2013 3:15 PM EDT Office Visit Dermatology [address] [facility] [address] [place] [address] Wiliam Lynne MD [address] [place] [address] RD, [place] [address] Verruca vulgaris (Primary Dx) Social History Tobacco [...] Progress Notes * Wiliam Lynne MD - 01/19/2013 3:39 PM EDT Problem: Followup verrucae. Brenna follows up with her mother, Alysha, and her sister, Janine. Unfortunately, the warts remain about the same. Physical examination today reveals certainly a 1-cm, large, protuberant verruca underneath the right fifth toe, and a small one on the tip of the left fifth. Assessment and Plan: Verrucae vulgaris. a. After aggressive treatments now with LN2 and Canthacur, we have really not seen much improvement. b. The patient is active with cheerleading and dance c. I would recommend that we take a different approach and wait until Niecy break when she has two weeks off from both school and dance, and then anesthetize and surgically remove most of the verrucae. We will set aside a 30-minute appointment for this. faith I recommended that she apply Emla cream two hours prior to the visit. While waiting for that visit, continue with Aldara cream and duct tape occlusion. e. Return to the clinic in March 2013. documented in this encounter Plan of Treatment Not on file documented as of this encounter Visit Diagnoses Diagnosis Verruca vulgaris- Primary Viral warts, unspecified documented in this encounter Care Teams Pouring Crane Operator Relationship Specialty Start Date End Date Yael Munguia MD [address] [place] [address] PCP - General 05/14/11 04/20/21 documented as of this encounter
--- OUTSIDE RECORDS SUMMARY | 2023-12-15 02:46 | XMS_ITS | Encounter Summary ---
[place] [address] Care Team Providers Care Flow Machine Operator Name Role Phone Yael Munguia MD Primary Care Provider [phone] Reason for Visit * Reason Comments Follow-up Encounter Details Date Type Department Care Team (Late st Contact Info) Description 12/16/2012 8:00 AM EDT Office Visit Dermatology [address] [facility] [address] [place] [address] Wiliam Lynne MD [address] [place] [address] RD, [facility] [place] [address] Verruca vulgaris (Primary Dx) Social History Tobacco [...] Progress Notes * Wiliam Lynne MD - 12/16/2012 8:25 AM EDT Problem: Followup verrucae. Brenna follows up and continues to have two warts present on her feet. She has not been using the Aldara cream very religiously. Occasionally she has been using duct tape. The wart on her right hallux has enlarged manyfold. Physical examination today reveals a 5-mm, soft verruca vulgaris present on the underside and medially and laterally on the right hallux, and on the tip of her left fifth toe a very small verruca. Assessment and Plan: Verrucae vulgaris. a. Today Canthacur in the red bottle applied to be left on for two hours, then wash off. b. Then apply Aldara cream on a nightly basis to sites, then tape and occlude. c. Return to the clinic in two to three weeks for repeat check. d. The patient was given a prescription today for EMLA cream, which she can apply to wart sites two hours prior to next visit and then occlude with tape. We will likely need to inject with lidocaine and then use liquid nitrogen and/or bleomycin to treat particularly the right hallux site. documented in this encounter Plan of Treatment Not on file documented as of this encounter Visit Diagnoses Diagnosis Verruca vulgaris- Primary Viral warts, unspecified documented in this encounter Care Teams Flow Machine Operator Relationship Specialty Start Date End Date Yael Munguia MD [address] [place] [address] PCP - General 05/14/11 04/20/21 documented as of this encounter
--- OUTSIDE RECORDS SUMMARY | 2023-12-15 02:46 | XMS_ITS | Encounter Summary ---
[place] [address] Care Team Providers Care Distribution System Operator Name Role Phone Yael Munguia MD Primary Care Provider [phone] Reason for Visit * Reason Comments Procedure Encounter Details Date Type Department Care Team (Late st Contact Info) Description 03/03/2013 3:35 PM EST Office Visit Dermatology at [address] [phone] Wiliam Lynne MD [address] [place] [address], [facility] [place] [address] Verruca vulgaris (Primary Dx) Social History Tobacco [...] Progress Notes * Wiliam Lynne MD - 03/03/2013 4:37 PM EST Problem: Followup of verrucae. Brenna follows up today with her mother, Alysha, for C and D removal of three warts, previously diagrammed on the flow sheet. Physical examination reveals a large 1.5 cm hyperkeratotic protuberant verruca under the right fifth toe, a smaller one next to that, and a small one on the tip of the left fifth toe. Assessment and Plan: 1. Verrucae vulgaris. a. After obtaining informed consent, sites were anesthetized and electrodesiccated and removed. b. Triple antibiotic ointment and Band-Aid placed. c. Wound care instructions and supplies given. d. Return to clinic in one week for wound check. Patient knows that she will not be able to dance for at least two weeks. This weekend, she will have her feet up and take it easy. e. Recommended Tylenol or ibuprofen for pain control. COPY: Yael Munguia M.D. documented in this encounter Plan of Treatment Not on file documented as of this encounter Visit Diagnoses Diagnosis Verruca vulgaris- Primary Viral warts, unspecified documented in this encounter Care Teams Distribution System Operator Relationship Specialty Start Date End Date Yael Munguia MD [address] [place] [address] PCP - General 05/14/11 04/20/21 documented as of this encounter
--- OUTSIDE RECORDS SUMMARY | 2023-12-15 02:46 | XMS_ITS | Clinical Summary ---
[place] [address] Care Team Providers Care Dining Car Conductor Name Role Phone Austyn James APRN Primary Care Provider [phone] Allergies Active Allergy Reactions Criticality Noted Date Comments Amoxicillin Trihydrate Other (See Comments) Includes - Amoxicillin - pot Clavulanate Reaction GI upset Medications Medication Sig Dispensed Refills Start Date End Date Status ENSKYCE 0.15-0.03 mg Tablet take 1 tablet by mouth once daily 0 04/15/2017 Active Active Problems Problem Noted Date Diagnosed Date Wound check, dressing change 03/09/2013 Verruca vulgaris 02/26/2011 Social History Tobacco Use Types Packs/Day Years Used Date Smoking Tobacco: Never Smokeless Tobacco: Never Alcohol Use Standard Drinks/Week Comments Not Asked 0 (1 standard drink = 0.6 oz pur e alcohol) Sex and Gender Information Value Date Recorded Sex Assigned at Not on file Gender Identity Not on file Sexual Orientation Not on file Plan of Treatment Health Maintenance Due Date Last Done Comments Chlamydia Screening 2013 HPV vaccine (1 - 3-dose series) 2013 HIV screen 2016 Hepatitis C Screening 2016 Hepatitis B vaccine (0-59 yrs) (1) 2017 Tdap adult 2017 Tetanus vaccine 2017 PAP Smear 11/23/2019 Covid-19 Vaccine ( - 2022-24 season) 2022 Influenza (Flu) vaccine (1 o f 1 - Influenza standard series) 12/26/2023 Care Teams Dining Car Conductor Relationship Specialty Start Date End Date Austyn James APRN [address] [place], [place] [id number] PCP - General Family Medicine 04/21/21
--- OUTSIDE RECORDS SUMMARY | 2023-12-15 02:46 | XMS_ITS | Encounter Summary ---
[place] [address] Care Team Providers Care Associate Professor Of Management Name Role Phone Yael Munguia MD Primary Care Provider [phone] Reason for Visit * Reason Comments Follow-up Encounter Details Date Type Department Care Team (Late st Contact Info) Description 06/19/2013 10:15 AM EST Office Visit Dermatology at [address] [phone] Wiliam Lynne MD [address] [facility], [place] [address] Verruca vulgaris (Primary Dx) Social History Tobacco [...] Progress Notes * Wiliam Lynne MD - 06/19/2013 10:26 AM EST Problem: Followup verruca vulgaris, underside of right great hallux. Brenna follows up today with her father, Yoel. She had a vigorous reaction to the bleomycin, but unfortunately the wart tissue still remains. Physical examination reveals a 1-cm round plaque of verrucous tissue still remaining at the right underside of her right great hallux. Assessment and Plan: Plantar wart, right great hallux. a. Today the patient was given samples of EMLA cream to apply on a q.h.s. basis. Apply at night after her shower, then apply tape occlusion and leave on for 24 hours before again showering and reapplying the Aldara. She was given 13 sample packets. b. Recommend that I see her again in another month for repeat check. c. Asked patient today to apply EMLA cream prior to her next visit in case we again need to do superficial bleomycin poke method again. documented in this encounter Plan of Treatment Not on file documented as of this encounter Visit Diagnoses Diagnosis Verruca vulgaris- Primary Viral warts, unspecified documented in this encounter Care Teams Associate Professor Of Management Relationship Specialty Start Date End Date Yael Munguia MD [address] [place] [address] PCP - General 05/14/11 04/20/21 documented as of this encounter
--- OUTSIDE RECORDS SUMMARY | 2023-12-15 02:46 | XMS_ITS | Encounter Summary ---
[place] [address] Care Team Providers Care Machine Staker Name Role Phone Yael Munguia MD Primary Care Provider [phone] Reason for Visit * Reason Comments Follow-up Encounter Details Date Type Department Care Team (Late st Contact Info) Description 05/02/2013 9:00 AM EST Office Visit Dermatology at [address] [place] [phone] Wiliam Lynne MD [address] [place] [address], [place] [address] Verruca vulgaris (Primary Dx) Social History Tobacco [...] Progress Notes * Wiliam Lynne MD - 05/02/2013 9:30 AM EST Problem: Followup verrucae vulgaris. Brenna follows up today with her father, Yoel. I had spoken with mom, Bernice, a few days back and suggested that they come back so I could again take a look at the wart now that the scab has come off. I discussed with Bernice over the phone the option of bleomycin injection, which has worked so well for her. Brenna is less convinced. Physical examination reveals verrucae vulgaris still present at both sites under the toes of the right foot. However, they are much smaller than prior to the C and D. Assessment and Plan: Verrucae vulgaris. a. Discussed the option of bleomycin injection and success rate that I have had with it. b. The patient is adamant that she does not want to have injections again into her foot (lidocaine or otherwise). c. I recommended that she then try Aldara cream, using on a nightly basis under tape occlusion for a month, and then return to clinic; 3 grams dispensed with one refill. documented in this encounter Plan of Treatment Not on file documented as of this encounter Visit Diagnoses Diagnosis Verruca vulgaris- Primary Viral warts, unspecified documented in this encounter Care Teams Machine Staker Relationship Specialty Start Date End Date Yael Munguia MD [address] [place] [address] PCP - General 05/14/11 04/20/21 documented as of this encounter
--- OUTSIDE RECORDS SUMMARY | 2023-12-15 02:46 | XMS_ITS | Encounter Summary ---
[place] [address] Care Team Providers Care Fire Sprinkler Installer Name Role Phone Angie Cardenas MD Primary Care Provider [phone] Reason for Visit * Reason Comments Verrucous Vulgaris Encounter Details Date Type Department Care Team (Late st Contact Info) Description 12/01/2010 2:45 PM EDT Office Visit Dermatology [address] [facility] [address] [place] [address] Wiliam Lynne MD [address] [place] [address] RD, [place] [address] Verruca vulgaris (Primary Dx) Social History Tobacco [...] Progress Notes * Wiliam Lynne MD - 12/01/2010 3:22 PM EDT Problem: Verruca vulgaris. Brenna follows up today with her mother Alysha with a new problem verruca vulgaris five present on the palmar fingers of her left hand. Physical examination confirms this and they are present as diagrammed on the accompanying yellow flow sheet. Assessment & Plan: Plantar warts left palmar hand. a. LN2 x2 applied to each of the five sites. b. Patient tolerated moderately well. c. Recommended that she also begin Vitamin-A 10,000 international units taking two of these p.o. three times daily for three weeks then D/C and return to clinic. d. RTC in three weeks. documented in this encounter Plan of Treatment Not on file documented as of this encounter Visit Diagnoses Diagnosis Verruca vulgaris- Primary Viral warts, unspecified documented in this encounter Care Teams Fire Sprinkler Installer Relationship Specialty Start Date End Date Angie Cardenas MD [facility] [place] [address] PCP - General 03/18/10 05/13/11 documented as of this encounter
--- OUTSIDE RECORDS SUMMARY | 2023-12-15 02:46 | XMS_ITS | Encounter Summary ---
Author Organization [facility] [place] [address] Care Team Providers Care Trim Machine Operator Name Role Phone Yael Munguia MD Primary Care Provider [phone] Reason for Visit * Reason Comments Follow-up Encounter Details Date Type Department Care Team (Late st Contact Info) Description 10/07/2012 10:45 AM EDT Office Visit Dermatology [address] [facility] [address] [place] [address] Wiliam Lynne MD [address] [place] [address] RD, [place] [address] Verruca vulgaris (Primary Dx) Social History Tobacco [...] Progress Notes * Wiliam Lynne MD - 10/07/2012 11:11 AM EDT Problem is followup verruca. Brenna follows up and after having total resolution of her warts back in June of 2011 she has noted some new ones, one on the left hand at the base of her fourth finger and one on the right hallux on the underside of the hallux. Chloe is quite active with dance and dances barefoot on mats with a number of other participants. She thinks this may where she is getting her warts. She is here today with her mother, Iza. Physical examination today confirms the presence of two 3-mm verrucous papules present at the sites noted consistent with verruca vulgaris. Assessment and Plan: Verruca vulgaris. a. Canthacur PS in the red bottle applied to be left on for two hours under tape occlusion then wash off. Then apply Aldara cream on a q.h.s. basis also under tape occlusion. 3 grams dispensed with zero refills. Return to clinic in two weeks for repeat check. b. This combination worked well for her in the past, and hopefully it will work well again for her now. documented in this encounter Plan of Treatment Not on file documented as of this encounter Visit Diagnoses Diagnosis Verruca vulgaris- Primary Viral warts, unspecified documented in this encounter Care Teams Trim Machine Operator Relationship Specialty Start Date End Date Yael Munguia MD [address] [place] [address] PCP - General 05/14/11 04/20/21 documented as of this encounter
--- OUTSIDE RECORDS SUMMARY | 2023-12-15 02:46 | XMS_ITS | Encounter Summary ---
[place] [address] Care Team Providers Care Digital Forensics Examiner Name Role Phone Yael Munguia MD Primary Care Provider [phone] Reason for Visit * Reason Comments Verrucous Vulgaris Encounter Details Date Type Department Care Team (Late st Contact Info) Description 06/04/2011 4:15 PM EST Office Visit Dermatology [facility] [address] [place] [address] Wiliam Lynne MD [address] [place] [address] RD, [place] [address] Verruca vulgaris (Primary Dx) Social History Tobacco [...] Progress Notes * Wiliam Lynne MD - 06/04/2011 4:42 PM EST Problem: Followup verruca vulgaris left hand. Brenna follows up and is with her mother Chelita and still has two warts remaining this despite the applications of the Aldara Cream. Physical examination reveals two minimally palpable verrucae still remaining on the middle finger of the palmar aspect of the left hand. Assessment & Plan: Plantar warts left hand. a. Today Canthacur PS was applied to be left on for three hours then wash off. b. Wait 2-3 days and then again resume Aldara Cream applying on a q. h.s. basis. c. RTC in 2-3 weeks for repeat check. NOTE: Could still consider again liquid nitrogen therapy. documented in this encounter Plan of Treatment Not on file documented as of this encounter Visit Diagnoses Diagnosis Verruca vulgaris- Primary Viral warts, unspecified documented in this encounter Care Teams Digital Forensics Examiner Relationship Specialty Start Date End Date Yael Munguia MD [address] [place] [address] PCP - General 05/14/11 04/20/21 documented as of this encounter
--- OUTSIDE RECORDS SUMMARY | 2023-12-15 02:46 | XMS_ITS | Encounter Summary ---
[place] [address] Care Team Providers Care Shoe Sewing Machine Operator And Tender Name Role Phone Angie Cardenas MD Primary Care Provider [phone] Reason for Visit * Reason Comments Verrucous Vulgaris Encounter Details Date Type Department Care Team (Late st Contact Info) Description 04/23/2011 4:15 PM EST Office Visit Dermatology [address] [facility] [address] [place] [address] Wiliam Lynne MD [address] [place] [address] RD, [place] [address] Verruca vulgaris (Primary Dx) Social History Tobacco [...] Progress Notes * Wiliam Lynne MD - 04/23/2011 4:53 PM EST Problem: Followup verruca vulgaris, left hand. Brenna follows up and unfortunately still has five warts remaining on the left hand. They are present as diagrammed. Physical examination confirms this. Assessment & Plan: Plantar warts, left hand. a. Today Canthacur PS in the red bottle applied to be left on under tape occlusion for three hours then wash off. The last few visits it has been two hours. b. Also, wait 2-3 days and then begin applying Aldara Cream on a q. h.s. basis also under tape occlusion. c. RTC in three weeks for repeat check, documented in this encounter Plan of Treatment Not on file documented as of this encounter Visit Diagnoses Diagnosis Verruca vulgaris- Primary Viral warts, unspecified documented in this encounter Care Teams Shoe Sewing Machine Operator And Tender Relationship Specialty Start Date End Date Angie Cardenas MD [facility] [place] [address] PCP - General 03/18/10 05/13/11 documented as of this encounter
--- OUTSIDE RECORDS SUMMARY | 2023-12-15 02:46 | XMS_ITS | Encounter Summary ---
Author Organization [facility] [place] [address] Care Team Providers Care Academic Guidance Specialist Name Role Phone Yael Munguia MD Primary Care Provider [phone] Reason for Visit * Reason Comments Skin Lesion * Consultation (Routine) - Specialty Diagnoses / Procedures Referred By Contjacinto lyons Referred To Contact Dermatology Diagnoses Melanocytic nevi of right upper limb, including shoulder Atypicla nevus of Rt Upper Arm Procedures Atypical nevus of Rt upper arm Yael Munguia MD [address] [place] [address] [place] [address] Wiliam Lynne MD [address] [place] [address], [facility] [address] Referral ID Status Reason Start Date Expiration Date V isits Requested Visits Authorized [id number] Consult, Test & Treat PCP Updated and/or Approved 11/26/2016 11/26/2017 6 6 Encounter Details Date Type Department Care Team (Late st Contact Info) Description 04/22/2017 10:45 AM EST Office Visit Dermatology at [address] [phone] Wiilam Lynne MD [address] [place] [address], [facility] [address] Nevus Social History Tobacco Use Types Packs/Day Years Used Date Smoking Tobacco: Never Smokeless Tobacco: Never Alcohol Use Standard Drinks/Week Comments Not Asked 0 (1 standard drink = 0.6 oz pur e alcohol) Sex and Gender Information Value Date Recorded Sex Assigned at Not on file Gender Identity Not on file Sexual Orientation Not on file documented as of this encounter Progress Notes * Wiilam Lynne MD - 04/22/2017 10:45 AM EST PROBLEM: Changing mole right upper lateral arm. Brenna follows up after last seeing me in 08/2013. After a semester at a college in [place] she is now planning to switch and spend the next semester as her second half of her freshman year at [employer]. She is here today with her mother, Clarisa. She is concerned about a changing pigmented mole on her right upper lateral arm that has been there for many, many years but it has been darkening and changing color. It has not bled, scabbed, or crusted. Physical examination reveals an 8 mm circular early compound versus intradermal nevus with a hyperpigmented ring peripherally and a reddish-brown halo peripheral to that and also the same pigmentation of color centrally. There is no induration. There has been no crusting or scabbing. It appears benign by the ABCDE criteria. Examination of her other nevi appears unremarkable. She has no warts. These have remained resolved on the left palmar hand and her right hallux. A/P: Benign nevus right lateral arm. a. Patient reassured. b. No treatment necessary. c. Reinforced sun avoidance precautions. Return to clinic p.r.n. cc: Yael Munguia MD documented in this encounter Plan of Treatment Not on file documented as of this encounter Visit Diagnoses Diagnosis Nevus Benign neoplasm of skin, site unspecified documented in this encounter Care Teams Academic Guidance Specialist Relationship Specialty Start Date End Date Yael Munguia MD [address] [place] [address] [place] [address] PCP - General 05/14/11 04/20/21 documented as of this encounter
--- OUTSIDE RECORDS SUMMARY | 2023-12-15 02:46 | XMS_ITS | Encounter Summary ---
[place] [address] Care Team Providers Care Apprentice Painter Brush Name Role Phone Yael Munguia MD Primary Care Provider [phone] Reason for Visit * Reason Comments Follow-up Encounter Details Date Type Department Care Team (Late st Contact Info) Description 09/05/2013 4:00 PM EDT Office Visit Dermatology at [address] [place] [phone] Wiliam Lynne MD [address] [facility] [address], [place] [address] Verruca vulgaris (Primary Dx) Social History Tobacco [...] * Patient Instructions* Theodora Spann LPN - 09/05/2013 4:17 PM EDT Images from the original note were not included. [facility] Plantar Warts: After Your Visit Your [...] doctor may recommend that you use an wblw-nbt-mydietd treatment. These include salicylic acid or duct [...] make walking more comfortable. ?? Take an rxxd-xqy-wupuouc medicine, such as acetaminophen (Tylenol), ibuprofen (Advil, [...] warts after 2 to 3 months of elax-fvw-qglruzr treatment. ?? Your warts are growing or spreading quickly even with treatment. Where can you learn more? Visit our [employer] information library at http://TrendingGames/Ateeda You can also view health information on [employer], your personal patient account. Log in or sign up today. Enter S429 in the search box to learn more about Plantar Warts: After Your Visit. ?? [id number] [employer]. Care instructions adapted under license by [facility]. This care instruction is for use with your licensed healthcare professional. If you have questions about a medical condition or this instruction, always ask your healthcare professional. [employer] disclaims any warranty or liability for your use of this information. Content Version: [id number]; Last Revised: November 29, 2012 documented in this encounter Progress Notes * Wiliam Lynne MD - 09/05/2013 4:40 PM EDT Problem: Followup verrucae vulgaris, right hallux and left palmar hand. Brenna follows up today with her mother, Clarisa. Fortunately, it seems like the warts are gone. Physical examination confirms that the verrucae have healed. They are resolved. There is no evidence of any recurrent lesions. Assessment and Plan: Verrucae vulgaris, left palmar hand and right hallux. a. Patient congratulated on good results. b. No need for further treatments. c. Return to clinic p.r.n. for new lesions/concerns. COPY: Yael Munguia M.D. documented in this encounter Plan of Treatment Not on file documented as of this encounter Visit Diagnoses Diagnosis Verruca vulgaris- Primary Viral warts, unspecified documented in this encounter Care Teams Apprentice Painter Brush Relationship Specialty Start Date End Date Yael Munguia MD [address] [place] [address] PCP - General 05/14/11 04/20/21 documented as of this encounter
--- OUTSIDE RECORDS SUMMARY | 2023-12-15 02:46 | XMS_ITS | Encounter Summary ---
Author Organization [facility] Address [facility] [place] [address] Care Team Providers Care Supervisor Wire Rope Fabrication Name Role Phone Angie Cardenas MD Primary Care Provider [phone] Encounter Details Date Type Department Care Team (Late st Contact Info) Description 11/28/2010 Abstract Dermatology [address] [facility] [address] [place] [address] Rosa Tucker, RN Social History Tobacco Use Types Packs/Day Years Used Date Smoking Tobacco: Never Assessed Sex and Gender Information Value Date Recorded Sex Assigned at Not on file Gender Identity Not on file Sexual Orientation Not on file documented as of this encounter Plan of Treatment Not on file documented as of this encounter Visit Diagnoses Not on filedocumented in this encounter Care Teams Supervisor Wire Rope Fabrication Relationship Specialty Start Date End Date Angie Cardenas MD [facility] [place] [address] PCP - General 03/18/10 05/13/11 documented as of this encounter
--- OUTSIDE RECORDS SUMMARY | 2023-12-15 02:46 | XMS_ITS | Encounter Summary ---
Author Organization [facility] Address [address] [place] [address] Care Team Providers Care Scorer Helper Name Role Phone Kimberly Lu MD Primary Care Provider [phone] Reason for Referral * Consult (3 - 10 Business Days) - Receiving Office to Obtain Authorization Specialty Diagnoses / Procedures Referred By Jocelyne lyons Referred To Contact Dermatology Diagnoses Benign skin lesion of thigh Jessica Fragoso NP [address] [place] [address] [place] [address] Dermatology [address] [place] [address] Referral ID Status Reason Start Date Expiration Date Visits Requested Visits Authorized [id number] Receiving Office to Obtain Authorization Specialty Services Required 06/02/2018 1 1 Question Answer Reason for Request: dark blue lesions left thigh Reason for Visit * Reason Comments Rash Per patient's report about 4 weeks ago she noticed a spot on her left upper thigh looks like it is healing but now has another spot present Encounter Details Date Type Department Care Team (Latest Contact Info) Description 06/02/2018 14:46 EST - 06/02/2018 16:19 EST Hospital Encounter [facility] - [address] [id number] Jessica Fragoso, PREMA [address] [place] [address] Unknown, Provider, Benign skin lesion of thigh (Primary Dx) Discharge Disposition: Home or Self [...] Sign Reading Time Taken Comments Blood Pressure 116/63 06/02/2018 1504 EST Pulse 73 06/02/2018 1504 EST Temperature 37.2 ??C (98.9 ??F) 06/02/2018 1504 EST Respiratory Rate 14 06/02/2018 1504 EST Oxygen Saturation - - Inhaled Oxygen [...] 08/05/2017 documented as of this encounter Discharge Instructions * Discharge Instructions* Jessica Fragoso FNP - 06/02/2018 16:23 EST The lesions on your left thigh do not appear to be cancerous or infectious. Please watch them over the next few weeks. If more lesions appear or the one you currently have does not heal, please call the dermatology office and ask to be seen sooner (if the lesions heal and do not return, you can cancel the appointment). If you can take another photograph, that is helpful to show the timber spotter. documented in this encounter Medications at Time of Discharge Medication Sig Dispensed Refills Start Date End Date desogestrel-ethinyl estradiol (ENSKYCE) 0.15-0.03 mg per tablet Take 1 Tab by mouth daily. Multivitamins with Minerals tablet tablet Take 1 Tab by mouth daily. ranitidine (ZANTAC) 150 mg tablet Take 150 mg by mouth 2 times daily as needed for Heartburn. documented as of this encounter Discharge Disposition Disposition Code Departure Means Destination Home or Self Care Walk-out Home documented in this encounter ED Notes * Jessica Fragoso FNP - 06/02/2018 1603 EST Images from the original note were not included. DOS: 06/02/2018 Chief Complaint Patient presents with ??? Rash Per patient's report about 4 weeks ago she noticed a spot on her left upper thigh looks like it is healing but now has another spot present The patient is a 17 y.o. female who presents today with Rash (Per patient's report about 4 weeks ago she noticed a spot on her left upper thigh looks like it is healing but now has another spot present) Patient noticed a small dark lesion on her left upper thigh about 4 weeks ago. It was completely asymptomatic, she just noticed it when she was showering. There was also an area that looked like it had been scratched, though she had not scratched it. It was asymptomatic, no itchiness, no tenderness. This slowly healed and the black area came off. She then noticed a lesion with the same appearancethis morning lower on her left thigh. Again it is asymptomatic, dark area with a small excoriated area as well. Again had no itching, no tenderness, would not have noticed it if she had not seen it. She denies any bedbugs, no foreign travel, no other insects, no injuries, no one else with similar lesions. PMH: She is anemic, and has fainted once recently, but completely resolved from that, deniesany other symptoms. On control pills, otherwise, no medications SH: Student at [employer], non-smoker FH: Noncontributory Review of Systems Constitutional: Negative for activity change and chills. HENT: Negative for congestion, sore throat and voice change. Eyes: Negative for photophobia. Respiratory: Negative for cough, chest tightness, shortness of breath and wheezing. Cardiovascular: Negative for chest pain and palpitations. Gastrointestinal: Negative for abdominal pain, diarrhea and nausea. Genitourinary: Negative. Musculoskeletal: Negative. Allergic/Immunologic: Negative for immunocompromised state. Neurological: Positive for light-headedness (on occasion, anemic). Hematological: Negative. Does not bruise/bleed easily. Psychiatric/Behavioral: Negative. No current facility-administered medications for this encounter. Current Outpatient Medications Medication Sig Dispense Refill ??? desogestrel-ethinyl estradiol (ENSKYCE) 0.15-0.03 mg per tablet Take 1 Tab by mouth daily. ??? Multivitamins with Minerals tablet tablet Take 1 Tab by mouth daily. ??? ranitidine (ZANTAC) 150 mg tablet Take [...] ??? Depression Mother ??? Asthma Sister BP 116/63 Pulse 73 Temp 98.9 ??F (37.2 ??C) Resp 14 Physical Exam Constitutional: She is oriented to person, place, and time. HENT: Head: Normocephalic. Cardiovascular: Normal rate and regular rhythm. Pulmonary/Chest: Effort normal. Musculoskeletal: Normal range of motion. Neurological: She is alert and oriented to person, place, and time. Skin: 2-3mm dark bluish macular lesion on left thigh with a tiny area of excoration a few mm's inferior to the lesion. There is mild erythema, but no warmth, no scaling. There is a healing lesion on the lateral upper thigh about 2-3mm in size that she states was the original lesion Psychiatric: She has a normal mood and affect. Nursing note and vitals reviewed. Consult orders: None PCP: Kimberly Lu No results found for this visit on 06/02/18. Radiology orders: None Imaging Results None No [...] will just watch for changes or spread. ASSESSMENT AND PLAN Final diagnoses: Benign skin lesion of thigh Dr. Emmy Loomis was available for consultation during my care of this patient. DISPOSITION: Discharged The patient's pain was managed to an adequate level weighing risk vs. benefit of further medications. Upon departure from [facility], the patient's pain was 0 on a zero to ten scale. Any further pain treatment will be at the discretion of the provider following up with the patient based on their clinical assessment . Condition at departure from the [facility] : Stable MDM 06/02/2018 18:14 * Ashley Brooks RN - 06/02/2018 1514 EST Name and verified. 17 yo presents with 2 lesion to left thigh. Onset of first approx 4 weeks ago, 2nd appeared this am. Initial lesion was no-painful , non-pruritic reddened lesion with flat black center. Black center has resolved to initial lesion * Negar Daigle RN - 06/02/2018 1502 EST Name and verified. documented in this encounter Plan of Treatment Scheduled Referrals Name Type Priority Associated Diagnoses Order Schedule AMB CONS/FOLLOW UP DERMATOLOGY Outpatient Referral Routine Benign skin lesion of thigh Ordered: 06/02/2018 documented as of this encounter Visit Diagnoses Diagnosis Benign skin lesion of thigh- Primary Unspecified disorder of skin and subcutaneous tissue documented in this encounter Care Teams Scorer Helper Relationship Specialty Start Date End Date Kimberly Lu MD PCP - General 07/28/17 11/10/18 documented as of this encounter
--- OUTSIDE RECORDS SUMMARY | 2023-12-15 02:46 | XMS_ITS | Encounter Summary ---
[place] [address] Care Team Providers Care Criminal Intelligence Analyst Name Role Phone Yael Munguia MD Primary Care Provider [phone] Reason for Visit * Reason Comments Follow-up Encounter Details Date Type Department Care Team (Late st Contact Info) Description 10/21/2012 4:45 PM EDT Office Visit Dermatology [facility] [address] [place] [address] Wiliam Lynne MD [address] [place] [address] RD, [place] [address] Verruca vulgaris (Primary Dx) Social History Tobacco [...] Progress Notes * Wiliam Lynne MD - 10/21/2012 5:18 PM EDT Problem is followup verruca. Brenna follows up and has had partial response but not clearance of her two warts. Physical examination reveals two 1 to 2-mm verrucous papules present at the same sites as noted in the last note. Assessment and Plan: Verruca vulgaris. a. Today Canthacur in the red bottle applied to be left on for one and a half hours under tape occlusion then wash off. b. Then apply Aldara cream on a q.h.s. basis to sites. c. Return to clinic p.r.n. for new lesions/concerns. I suspect that today's treatment should be definitive. documented in this encounter Plan of Treatment Not on file documented as of this encounter Visit Diagnoses Diagnosis Verruca vulgaris- Primary Viral warts, unspecified documented in this encounter Care Teams Criminal Intelligence Analyst Relationship Specialty Start Date End Date Yael Munguia MD [address] [place] [address] PCP - General 05/14/11 04/20/21 documented as of this encounter
--- OUTSIDE RECORDS SUMMARY | 2023-12-15 02:46 | XMS_ITS | Encounter Summary ---
[place] [address] Care Team Providers Care Scientific Process Operator Name Role Phone Yael Munguia MD Primary Care Provider [phone] Reason for Visit * Reason Comments Verrucous Vulgaris Encounter Details Date Type Department Care Team (Late st Contact Info) Description 05/14/2011 3:45 PM EST Office Visit Dermatology [address] [facility] [address] [place] [address] Wiliam Lynne MD [address] [place] [address] RD, [place] [address] Verruca vulgaris (Primary Dx) Social History Tobacco [...] Progress Notes * Wiliam Lynne MD - 05/14/2011 4:32 PM EST Problem: Followup verruca vulgaris left hand. Brenna follows up with her mother Iza and has done well. She had a pretty good reaction last visit after the Canthacur PS applications for about three hours. Physical examination reveals that the five remaining warts on the left hand really flattened down significantly. Assessment & Plan: Plantar warts left hand. a. Today no Canthacur PS was applied but instead I have asked the patient to begin applying the Aldara Cream that she was just able to get on a q. h.s. basis to the affected wart sites for the next three weeks then return to clinic. b. RTC in three weeks for repeat check. documented in this encounter Plan of Treatment Not on file documented as of this encounter Visit Diagnoses Diagnosis Verruca vulgaris- Primary Viral warts, unspecified documented in this encounter Care Teams Scientific Process Operator Relationship Specialty Start Date End Date Yael Munguia MD [address] [place] [address] PCP - General 05/14/11 04/20/21 documented as of this encounter
--- OUTSIDE RECORDS SUMMARY | 2023-12-15 02:46 | XMS_ITS | Encounter Summary ---
Author Organization [facility] Address [address] [place] [address] Care Team Providers Care Grey Goods Examiner Name Role Phone Kimberly Lu MD Primary Care Provider [phone] Reason for Referral * Referral (Routine) - Receiving Office to Obtain Authorization Specialty Diagnoses / Procedures Referred By Contact Referred To Contact Gastroenterology and Hepatology Diagnoses Blood in stool Procedures COLONOSCOPY REQUEST Cedric Echeverria MD [address] [facility] [address] [place] [address] [facility] [address] [place] [address] Referral ID Status Reason Start Date Expiration Date Visits Requested Visits Authorized [id number] Receiving Office to Obtain Authorization 08/05/2017 1 1 Reason for Visit * Reason Comments New Patient Visit blood in stool * Consult (Routine) - Closed Specialty Diagnoses / Procedures Referred By Contact Referred To Contact Gastroenterology and Hepatology Diagnoses Blood in the stool Abdominal pain Kimberly Lu MD [address] [place] [phone] [facility] [address] [place] [address] Referral ID Status Reason Start Date Expiration Date Visits Re quested Visits Authorized [id number] Closed 1 1 Encounter Details Date Type Department Care Team ([facility] st Contact Info) Description 08/05/2017 8:00 EDT Office Visit [facility] Gastroenterology - [address] [address] Cedric Echeverria MD [address] [facility], [address] [place] [address] Blood in stool (Primary Dx) Social History Tobacco Use Types [...] Sign Reading Time Taken Comments Blood Pressure 90/70 08/05/2017 0757 EDT Pulse 60 08/05/2017 0757 EDT Temperature - - Respiratory Rate - - Oxygen Saturation - - Inhaled Oxygen Concentration - - Weight 54.3 kg (119 lb 9.6 oz) 08/05/2017 0757 E DT Height 162.6 cm (5' 4) 08/05/2017 0757 EDT Body Mass Index 20.53 08/05/2017 0757 EDT Body Mass Index Percentile 37.50% 08/05/2017 075 7 EDT Growth Chart: [facility] (Girls, 2- 20 Years) documented in this encounter Functional Status Functional [...] No 08/05/2017 documented as of this encounter Ordered Prescriptions Prescription Sig Dispensed Refills Start Date End Da te polyethylene glycol (GOLYTELY;NULYTELY) 236-22.74-6.74 -5.86 gram suspension Instructions mailed once procedure scheduled. Questions: [facility] Gastroenterology: [phone] or GI Doctor's Office. 4000 mL 08/05/2017 02/01/2018 documented in this encounter Progress Notes * Cedric Echeverria MD - 08/05/2017 0800 EDT Subjective: Patient ID: Brenna Mcneil is an 16 y.o. female. Chief Complaint Patient presents with ??? New Patient Visit blood in stool HPI Comments: Brenna is seen in the GI office at the request of Dr. Lu for consultation for blood in stool and abdominal pain. She has had bowel issues much of her life -- alternating constipationand diarrhea, associated with abdominal pain. She is a freshman at [employer] and her symptoms have worsened over the school year. More severe and bothersome, and since December she has had frequent blood per rectum. This happens some with firm stools and more so when having diarrhea. She has a lot of urgency to move her bowels. No fevers. Occasional NSAIDs. No family history of IBD or colorectal cancer. Had bloodwork in ER at [facility] two weeks ago and had anemia with a low MCV. Had heavy periods in the past but has been on OCP since efren year in high school. She does not have pain or a tearing sensation when moving her bowels. Has a fair amount of stress associated with school. She has headaches associated with a recent concussion. There is no problem list on file for this patient. Past Medical History: Diagnosis Date ??? Anemia ??? Depression ??? GERD (gastroesophageal reflux disease) Past Surgical History: Procedure Laterality Date ??? TONSILLECTOMY ??? WISDOM TOOTH EXTRACTION Family History Problem Relation Age of Onset ??? Depression Mother ??? Asthma Sister Social Social History Substance Use Topics ??? Smoking status: Never Smoker ??? Smokeless tobacco: Never Used ??? Alcohol use Yes Comment: 0-1 per week No current outpatient prescriptions on file prior to visit. No current facility-administered medications on file prior to visit. Allergies Allergen Reactions ??? Amoxicillin Diarrhea Review of Systems Gastrointestinal: Positive for abdominal pain, blood in stool, constipation, diarrhea, heartburn and nausea. Musculoskeletal: Positive for back pain. Neurological: Positive for loss of consciousness and headaches. Psychiatric/Behavioral: Positive for depression. - See HPI Objective: BP 90/70 Pulse 60 Ht 162.6 cm (64) Wt 54.3 kg (119 lb 9.6 oz) BMI 20.53 kg/m2 Physical Exam Alert and oriented, no distress Sclera anicteric, mucous membranes moist Heart regular rate and rhythm Lungs clear to auscultation bilaterally Abdomen soft and non-tender, no masses, hepatomegally Extremities without rash or edema] Rectal: deferred Assessment: Change in bowel habits, now associated with frequent rectal bleeding and significant urgency. Will need to rule out proctitis. Colonoscopy will be scheduled. Can also assess for fissure, hemorrhoids,polyps. Her bowel pattern and discomfort are consistent with irritable bowel syndrome, mixed type. Can give some advice for symptomatic relief once we understand her rectal bleeding. Plan: -colonoscopy Cedric Echeverria MD Med Orders Placed This Visit and Additions to the Medication List Medications ??? ranitidine (ZANTAC) 150 mg tablet Sig: Take 150 mg by mouth 2 times daily as needed for Heartburn. ??? desogestrel-ethinyl estradiol (ENSKYCE) 0.15-0.03 mg per tablet Sig: Take 1 Tab by mouth daily. ??? Multivitamins with Minerals tablet tablet Sig: Take 1 Tab by mouth daily. documented in this encounter Plan of Treatment Scheduled Orders Name Type Priority Associated Diagnoses Orde r Schedule COLONOSCOPY REQUEST GI Routine Blood in stool Ordered: 08/05/2017 documented as of this encounter Visit Diagnoses Diagnosis Blood in stool- Primary documented in this encounter Historical Medications * This list may reflect changes made after this encounter. Medication Sig Dispensed Refills Start Date End Date Multivitamins with Minerals tablet tablet Take 1 Tab by mouth daily. desogestrel-ethinyl estradiol (ENSKYCE) 0.15-0.03 mg per tablet Take 1 Tab by mouth daily. ranitidine (ZANTAC) 150 mg tablet Take 150 mg by mouth 2 times daily as needed for Heartburn. added in this encounter Care Teams Grey Goods Examiner Relationship Specialty Start Date End Date Kimberly Lu MD PCP - General 07/28/17 11/10/18 documented as of this encounter
--- OUTSIDE RECORDS SUMMARY | 2023-12-15 02:46 | XMS_ITS | Encounter Summary ---
Author Organization [facility]ly [facility] Address One [facility] [place] [address] Care Team Providers Care Laborer Dairy Farm Name Role Phone Austyn James APRN Primary Care Provider [phone] Reason for Referral * Diagnostic Test (Routine) - Closed Specialty Diagnoses / Procedures Referred By Pemaac t Referred To Contact Radiology Diagnoses Tear of left acetabular labrum, initial encounter Procedures XR Fluoro Arthrogram Injection Hip Left Lucio Maldonado MD [address] [place] [address] [facility] [employer] Xray [address] [place] [address] [place] [address] Referral ID Status Reason Start Date Expiration Date V isits Requested Visits Authorized [id number] Closed Specialty Service Requested 04/04/2021 04/30/2021 1 1 Reason for Visit * Diagnostic Test (Routine) - Closed Specialty Diagnoses / Procedures Referred By Contac t Referred To Contact Radiology Diagnoses Tear of left acetabular labrum, initial encounter Procedures XR Fluoro Arthrogram Injection Hip Left Lucio Maldonado MD [address] [place] [address] [facility] [employer] Xray [address] [place] [address] [place] [address] Referral ID Status Reason Start Date Expiration Date V isits Requested Visits Authorized [id number] Closed Specialty Service Requested 04/04/2021 04/30/2021 1 1 Encounter Details Date Type Department Care Team (Latest Contact Info) Description 04/21/2021 9:26 AM EST - 04/21/2021 11:59 PM EST Hospital Encounter XRay at [address] [place] [address] Lucio Maldonado MD [address] [place] [address] Tear of left acetabular labrum, initial encounter [...] on file documented as of this encounter Discharge Instructions * Patient Instructions* Svitlana Jaime - 04/21/2021 10:03 AM EST Post Injection Patient Instructions You received an injection by MICHELLE HOOK PA-C in the diagnostic section of radiology. Procedure: LEFT HIP ARTHROGRAM INJECTION In the days following the injection: ??? Low intensity movement and exercise of the affected joint. ??? Avoid movements that worsen pain. During the first 48 hours following the injection you may experience mild discomfort at the injection site. If you experience pain or discomfort in the affected area, do the following: ??? Apply cold compress to the affected area. ??? If allowed by your physician, take an anti-inflammatory medication such as ibuprofen (example: Advil), Acetaminophen 9example: Tylenol) or Aspirin. IMPORTANT The risk of infection exists whenever the skin is punctured. The risk can be minimized by keeping the injection site clean. However, be aware of the following signs of an infection: ??? Redness and swelling at the injection site. ??? Increased pain. ??? Fever and/or chills. ??? Decreased range of motion in the joint near the injection site. If you experience any of the signs of infection listed above, telephone the diagnostic section of radiology at [phone]. documented in this encounter Medications at Time of Discharge Medication Sig Dispensed Refills Start Date End Date ENSKYCE 0.15-0.03 mg Tablet take 1 tablet by mouth once daily 0 04/15/2017 documented as of this encounter Plan of Treatment Not on file documented as of this encounter Procedures Procedure Name Priority Date/Time Associated Diagnosis Comments XR FLUORO ARTHROGRAM INJECTION HIP LEFT Routine 04/21/2021 10:31 AM EST Tear of left acetabular labrum, initial encounter documented in this encounter Results * XR Fluoro Arthrogram Injection Hip Left (04/21/2021 10:31 AM EST) Anatomical Region Laterality Modality Hip Left Radio Fluoroscop y Addenda Addendum by Gege Bowers MD on 06/30/2021 9:00 AM EST --------ADDENDUM #1-------- Attending of record: Dr. Gege Bowers M.D. Preliminary report signed by: JOE Méndez at 06/25/2021 9:35 AM I have personally reviewed the image(s) and the provider's interpretation and agree with the findings, Gege Bowers MD at 06/30/2021 8:55 AM Thank you for letting us participate in the care of this patient. ??If you are a health care provider and have any questions regarding this report, please contact the number below. ??For patients who have questions please contact the health career services officer that requested your imaging first. ? Electronically signed by: Gege Bowers MD, [facility] ([phone]), at 06/30/2021 8:55 AM --------ORIGINAL REPORT -------- HISTORY: ??Femoroacetabular impingement of left hip. Labral tear of left hip joint. , MR arthrogram of left hip Arthrogram For Injection Of Contrast TECHNIQUE: After an extensive conversation with the patient regarding risks and benefits, oral and written consent were obtained.? A pre-procedural time-out was performed, including review of the patient's relevant electronic medical record and allergies, as per [facility] protocol. The patient was positioned supine on the fluoroscopic table. ??The skin overlying anterior left hip was prepped and draped in the usual aseptic manner. ??1% Lidocaine was used to achieve local anesthesia. ??Under fluoroscopic guidance, a 22-gauge 3.5 spinal needle was advanced into the joint space. ??After confirmation of intra-articular location of needle tip by using a small injection of the contrast mixture, a total of 10 ml of the contrast mixture was injected. All needles removed at end of procedure. FINDINGS: 1. Contrast in left hip joint space 2. Additional post-contrast injection images were obtained in different projections. MEDICATIONS: Lidocaine 1% - <5 ml, for subcutaneous anesthesia CONTRAST: 20cc mixture of the following were prepared: Dotarem- .2cc (1/100 dilution) Normal Saline - 10ml Omnipaque 300- 5 mL 1% Lidocaine - 5ml Only 10 ml of this mixture injected into joint space. FLUORO TIME: 0.23 seconds COMPLICATIONS: ??None immediate. POST-PROCEDURE CARE: Instructions regarding monitor of infection and management of post-procedural pain were reviewed with the patient. IMPRESSION: Uneventful arthrogram of left hip joint Resident/Fellow: None Attending: None Thank you for letting us participate in the care of this patient. ??If you are a health care provider and have any questions regarding this report, please contact the number below. ??For patients who have questions please contact the health career services officer that requested your imaging first. ? Electronically signed by: JOE Méndez, [facility] ([phone]), at 04/21/2021 11:00 AM Impressions 04/21/2021 11:00 AM EST Uneventful arthrogram of left hip joint Resident/Fellow: None Attending: None Thank you for letting us participate in the care of this patient. ??If you are a health care provider and have any questions regarding this report, please contact the number below. ??For patients who have questions please contact the health career services officer that requested your imaging first. ? Electronically signed by: JOE Méndez, [facility] ([phone]), at 04/21/2021 11:00 AM Narrative 04/21/2021 11:00 AM EST HISTORY: ??Femoroacetabular impingement of left hip. Labral tear of left hip joint. , MR arthrogram of left hip Arthrogram For Injection Of Contrast TECHNIQUE: After an extensive conversation with the patient regarding risks and benefits, oral and written consent were obtained.? A pre-procedural time-out was performed, including review of the patient's relevant electronic medical record and allergies, as per [facility] protocol. The patient was positioned supine on the fluoroscopic table. ??The skin overlying anterior left hip was prepped and draped in the usual aseptic manner. ??1% Lidocaine was used to achieve local anesthesia. ??Under fluoroscopic guidance, a 22-gauge 3.5 spinal needle was advanced into the joint space. ??After confirmation of intra-articular location of needle tip by using a small injection of the contrast mixture, a total of 10 ml of the contrast mixture was injected. All needles removed at end of procedure. FINDINGS: 1. Contrast in left hip joint space 2. Additional post-contrast injection images were obtained in different projections. MEDICATIONS: Lidocaine 1% - <5 ml, for subcutaneous anesthesia CONTRAST: 20cc mixture of the following were prepared: Dotarem- .2cc (1/100 dilution) Normal Saline - 10ml Omnipaque 300- 5 mL 1% Lidocaine - 5ml Only 10 ml of this mixture injected into joint space. FLUORO TIME: 0.23 seconds COMPLICATIONS: ??None immediate. POST-PROCEDURE CARE: Instructions regarding monitor of infection and management of post-procedural pain were reviewed with the patient. Procedure Note Michelle Hook PA / Gege Bowers MD - 04/21/2021 HISTORY: Femoroacetabular impingement of left hip. Labral tear of lefthip joint. , MR arthrogram of left hip Arthrogram For Injection Of Contrast TECHNIQUE: After an extensive conversation with the patient regarding risks andbenefits, oral and written consent were obtained.? A pre-procedural time-out was performed, including review of the patient's relevant electronic medicalrecord and allergies, as per [facility] protocol. The patient was positioned supine on the fluoroscopic table. The skinoverlying anterior left hip was prepped and draped in the usual aseptic manner.1% Lidocaine was used to achieve local anesthesia. Under fluoroscopicguidance, a 22-gauge 3.5 spinal needle was advanced into the joint space. After confirmation of intra-articular location of needle tip by using a small injection of the contrast mixture, a total of 10 ml of the contrastmixture was injected. All needles removed at end of procedure. FINDINGS: 1. Contrast in left hip joint space 2. Additional post-contrast injection images were obtained in different projections. MEDICATIONS: Lidocaine 1% - <5 ml, for subcutaneous anesthesia CONTRAST: 20cc mixture of the following were prepared: Dotarem- .2cc (1/100 dilution) Normal Saline - 10ml Omnipaque 300- 5 mL 1% Lidocaine - 5ml Only 10 ml of this mixture injected into joint space. FLUORO TIME: 0.23 seconds COMPLICATIONS: None immediate. POST-PROCEDURE CARE: Instructions regarding monitor of infection andmanagement of post-procedural pain were reviewed with the patient. IMPRESSION Uneventful arthrogram of left hip joint Resident/Fellow: None Attending: None Thank you for letting us participate in the care of this patient. If youare a health care provider and have any questions regarding this report,please contact the number below. For patients who have questions please contactthe health career services officer that requested your imaging first. Lucio Maldonado MD IMG FLUORO ORDERABLE S documented in this encounter Visit Diagnoses Diagnosis Tear of left acetabular labrum, initial encounter documented in this encounter Administered Medications Inactive Administered Medications - up to 3 most recent administrations Medication Order MAR Action Action Date Dose Rate Site gadoterate meglumine (Dotarem) (0.5 mMol/mL) injection solution 0-100 mL 0-100 mL, Intravenous, ONCE PRN, 1 dose, Starting on Wed04/21/21 at 1003, Until Wed04/21/21 at 1006, Per Protocol, Radiology Contrast, Routine Given 04/21/2021 10:06 AM EST 0.2 mLs iohexoL (Omnipaque) (300 mg/mL) solution 0-10 mL 0-10 mL, Intravenous, ONCE, 1 dose, On Wed04/21/21 at 1030, Warning Vesicant/Irritant Medication , Radiology Contrast, Routine Given 04/21/2021 10:30 AM EST 5 mLs lidocaine (Xylocaine) 1% (10 mg/mL) injection 0-100 mg 0-100 mg (0-10 mL), Intra-articular, ONCE, 1 dose, On Wed04/21/21 at 1030, Radiology Protocol Medication, Routine Given 04/21/2021 10:30 AM EST 5 mLs documented in this encounter Care Teams Laborer Dairy Farm Relationship Specialty Start Date End Date Austyn James APRN [address] [place] [address] PCP - General Family Medicine 04/21/21 documented as of this encounter
--- OUTSIDE RECORDS SUMMARY | 2023-12-15 02:46 | XMS_ITS | Encounter Summary ---
[place] [address] Care Team Providers Care Staff Pharmacist Name Role Phone Yael Munguia MD Primary Care Provider [phone] Reason for Visit * Reason Comments Verrucous Vulgaris Encounter Details Date Type Department Care Team (Late st Contact Info) Description 06/25/2011 11:15 AM EST Office Visit Dermatology [address] [facility] [address] [place] [address] Wiliam Lynne MD [address] [place] [address] RD, [place] [address] Verruca vulgaris (Primary Dx) Social History Tobacco [...] Progress Notes * Wiliam Lynne MD - 06/25/2011 11:39 AM EST Problem: Followup verruca vulgaris left hand. Brenna follows up and has had resolution of her verrucae. Physical examination reveals that the remaining sites on the middle finger of the palmar aspect of the left hand have resolved. Assessment & Plan: Plantar warts left hand resolved. a. Patient congratulated. b. No treatment necessary. c. RTC p.r.n. d. Hold onto remaining Aldara Cream for potential future use. documented in this encounter Plan of Treatment Not on file documented as of this encounter Visit Diagnoses Diagnosis Verruca vulgaris- Primary Viral warts, unspecified documented in this encounter Care Teams Staff Pharmacist Relationship Specialty Start Date End Date Yael Munguia MD [address] [place] [address] PCP - General 05/14/11 04/20/21 documented as of this encounter
--- OUTSIDE RECORDS SUMMARY | 2023-12-15 02:46 | XMS_ITS | Encounter Summary ---
[place] [address] Care Team Providers Care Inbound Sales Advisor Name Role Phone Yael Munguia MD Primary Care Provider [phone] Reason for Visit * Reason Comments Follow-up Encounter Details Date Type Department Care Team (Late st Contact Info) Description 03/09/2013 11:45 AM EST Office Visit Dermatology at [address] [place] [id number] Wiliam Lynne MD [address] [place] [address], [place] [address] Wound check, dressing change (Primary Dx) Social History Tobacco Use Types [...] Progress Notes * Wiliam Lynne MD - 03/09/2013 12:36 PM EST Problem: Followup verrucae vulgaris. Brenna follows up today and has done well. Following her treatment on 03/04/2013, C and D removal of three wart sites, these are to be inspected today. Physical examination shows that the large site is beginning to granulate and heal. She is able to walk reasonably well but is favoring that toe and is unable to put pressure on it, understandably. There is no crusting or scabbing. No drainage. There is no surrounding erythema. Also, the two smaller treatment sites appear to be healing well also. Assessment and Plan: Verrucae vulgaris. a. Dressing replaced. b. Continue wound care/dressing for another month, then return to the clinic. c. The patient knows that she may not be able to participate in the dance tournament coming up this Wednesday, and she will see how her feet feel at that time. COPY: Yael Munguia M.D. documented in this encounter Plan of Treatment Not on file documented as of this encounter Visit Diagnoses Diagnosis Wound check, dressing change- Primary Encounter for change or removal of nonsurgical wound dressing documented in this encounter Care Teams Inbound Sales Advisor Relationship Specialty Start Date End Date Yael Munguia MD [address] [place] [address] PCP - General 05/14/11 04/20/21 documented as of this encounter
[2023-12-15 10:43] LABS: Panorama Kit Sent via Fed Ex
[2023-12-15 12:21] LABS: Abs Immature Grans 0.02 10^3/uL (0.0-0.06); Absolute Basophil Count 0.03 10^3/uL (0.0-0.2); Absolute Eosinophil Count 0.07 10^3/uL (0.0-0.7); Absolute Lymphocyte Count 1.48 10^3/uL (1.2-3.4); Absolute Monocyte Count 0.49 10^3/uL (0.1-0.8); Absolute Neutrophil Count 3.94 10^3/uL (1.2-6.7); Basophils % 0.5 %; Eosinophils % 1.2 %; HCT 39.7 % (36.0-46.0); Immature Grans % 0.3 %; Lymphocytes % 24.5 %; MCH 30.1 pg (27.0-33.0); MCHC 35.3 % (32.0-36.0); MCV 85 fL (80-95); MPV 9.7 fL (8.0-11.0); Monocytes % 8.1 %; Neutrophils % 65.4 %; Platelet Count 246 10^3/uL (130-400); RBC 4.65 10^6/uL (3.93-5.22); RDW-SD 39.8 fL; WBC 6.03 10^3/uL (4.4-10.8)
[2023-12-15 13:16] LABS: TSH (W/Ref FT4) 1.96 uIU/mL (0.36-3.74)
[2023-12-15 18:54] LABS: Hepatitis B Surface Ag Negative (Negative)
[2023-12-15 19:33] LABS: Hepatitis C Ab w Rflx HCV PCR Negative (Negative)
[2023-12-15 19:46] LABS: HIV-1/2 Ag & Ab Screen Negative (Negative)
[2023-12-16 09:52] LABS: Varicella IgG Antibody Positive (See Note)
[2023-12-16 10:01] LABS: Rubella IgG Ab (UVM) Positive (See Note)
[2023-12-17 15:07] LABS: Syphilis IgG w/Reflex Nonreactive (Nonreactive)
[2023-12-19 23:54] LABS: Specimen WB Whole Blood
[2023-12-28 11:34] LABS: Result Summary NEGATIVE; Specimen WB Whole Blood
== END 2023-12-15 02:26 | disposition home or self-care (01) ==
LOC: LBO 02:25
PROVIDERS: Advanced Practice Midwife; PCP Nurse Practitioner Family; Visit Provider Advanced Practice Midwife
DX: Z34.91 Encounter for supervision of normal pregnancy, unspecified, first trimester (principal); Z83.49 Family history of other endocrine, nutritional and metabolic diseases
CPT/HCPCS: 36415; 81220; 81222; 81329; 86787; 86803; 86850; 86900; 86901; 87340; 87389; 84443; 85025; 86762; 86780

== ENCOUNTER 2023-12-15 13:29 | Outpatient (REF) | payer BC, SELFPAY ==
--- OUTSIDE RECORDS SUMMARY | 2023-12-15 13:39 | XMS_ITS | Encounter Summary ---
Author Organization [facility] Address [address] [place] [address] Care Team Providers Care Youth Specialist Name Role Phone Kimberly Lu MD Primary Care Provider [phone] Encounter Details Date Type Department Care Team (Late st Contact Info) Description 07/15/2018 10:40 EDT - 07/15/2018 10:42 EDT Hospital Encounter [address] [address] Olamide Gordon, DNP [address] [place] [id number] Discharge Disposition: Home or Self Care Social [...] on filedocumented in this encounter Care Teams Youth Specialist Relationship Specialty Start Date End Date Kimberly Lu MD PCP - General 07/28/17 11/10/18 documented as of this encounter
--- OUTSIDE RECORDS SUMMARY | 2023-12-15 13:39 | XMS_ITS | Encounter Summary ---
Author Organization [facility] Address [address] [place] [address] Care Team Providers Care Axle And Frame Mechanic Name Role Phone Unknown, Provider Primary Care Provider [phone] Encounter Details Date Type Department Care Team (Late st Contact Info) Description 10/01/2020 Lab Requisition [facility] Pathology & Laboratory Medicine - [address] [address] Heather Barton, FIELD HANDYMAN [address] [place] [address] Encounter for other general examination [...] System with Manual Evaluation 10/11/2020 14:[address] [facility] Specimen Adequacy Satisfactory for Evaluation - transformation zone component present 10/11/2020 14:[address] [facility] General Categorization Negative for intraepithelial lesion or malignancy 10/11/2020 14:[address] [facility] Attestation . 10/11/2020 14:[address] [facility] at 1409 Clinical History See below 10/12/19 14:[address] [facility] Performing Lab [facility] 10/11/2020 14:[address] [facility] Scanned Images 10/11/2020 14:[address] [facility] Papanicolaou smear specimen (specimen) CERVIX UTERI STRUCTURE / Unknown 10/01/2020 9:30 EDT 10/02/2020 15:21 EDT Heather Barton APRN PATHOLOGY ORDERAB LES [facility] [address] [place] [address] * CHLAMYDIA/N. GONORRHOEAE AMPLIFIED RNA, THINPREP (10/01/2020 9:30 EDT) Neisseria gonorrhoeae Result Negative Negative 10/02/2020 16:[address] [facility] Chlamydia trachomatis Result Negative Negative 10/02/2020 16:[address] [facility] Papanicolaou smear specimen (specimen) CERVIX UTERI STRUCTURE / Unknown 10/01/2020 9:30 EDT 10/02/2020 8:05 EDT Heather Barton APRN MICROBIOLOGY - GE NERAL ORDERABLES [facility] [address] [place] [address] documented in this encounter Visit Diagnoses Diagnosis Encounter for other general examination documented in this encounter Care Teams Axle And Frame Mechanic Relationship Specialty Start Date End Date Unknown, Provider, PCP - General 11/11/18 documented as of this encounter
--- OUTSIDE RECORDS SUMMARY | 2023-12-15 13:39 | XMS_ITS | Encounter Summary ---
Author Organization [facility] Address [address] [place] [address] Care Team Providers Care Visual Merchandising Director Name Role Phone Unknown, Provider Primary Care Provider [phone] Encounter Details Date Type Department Care Team ([facility] st Contact Info) Description 12/23/2018 Results Only [facility] [phone] Kimberly Gallegos MD [address] [place] [address] Social History Tobacco Use Types [...] BACTERIAL CULTURE, URINE (12/23/2018 18:39 EDT) Pathologist [facility] Result 10,000 to 100,000 CFU/ml CITROBACTER KOSERI 12/25/2018 9:31 EDT [facility] Result Less than 10,000 CFU/ml Usual urogenital arlette. 12/25/2018 9:31 EDT [facility] URINE / Unknown 12/23/2018 1 [...] vitro susceptibility. Kimberly Gallegos MD MICROBIOLOGY - [facility] ORDERABLES [facility] [address] [place] [address] documented in this encounter Visit Diagnoses Not on filedocumented in this encounter Care Teams Visual Merchandising Director Relationship Specialty Start Date End Date Unknown, Provider, PCP - General 11/11/18 documented as of this encounter
--- OUTSIDE RECORDS SUMMARY | 2023-12-15 13:39 | XMS_ITS | Clinical Summary ---
Author Organization [facility] Address [address] [place] [address] Care Team Providers Care Valve Grinder Name Role Phone Unknown, Provider Primary Care Provider [phone] Allergies Active Allergy Reactions Criticality Noted Date [...] 06/06/2018 Active Problems No known active problems Encounters Date Type Department Care Team Description 12/15/2023 Lab Requisition [facility] Pathology & Laboratory Medicine [address] [address] Outr Resulting Lab, Provider 12/15/2023 Lab Requisition [facility] Pathology & Laboratory Medicine [address] [address] Outr Resulting Lab, Provider 12/15/2023 Lab Requisition [facility] Pathology & Laboratory [address] [address] Outr Resulting Lab, Provider from Last 3 Months Surgical History Surgery Date Site/Laterality Comments TONSILLECTOMY [...] COVID-19 Vaccine (2022-24 season) 2022 Care Teams Valve Grinder Relationship Specialty Start Date End Date Unknown, Provider, PCP - General 11/11/18
--- OUTSIDE RECORDS SUMMARY | 2023-12-15 13:39 | XMS_ITS | Encounter Summary ---
Author Organization [facility] Address [address] [place] [address] Care Team Providers Care Senior Market Intelligence Consultant Name Role Phone Kimberly Lu MD Primary Care Provider [phone] Reason for Visit * Reason Onset Date Comments Hospital Discharge Follow Up 06/04/2018 Encounter Details Date Type Department Care Team (Late st Contact Info) Description 06/04/2018 Telephone [facility] Primary Care [facility] - [address] [id number] Jayda Thompson, RN [address] [place] [address] Hospital Discharge Follow Up Social History Tobacco [...] on filedocumented in this encounter Care Teams Senior Market Intelligence Consultant Relationship Specialty Start Date End Date Kimberly Lu MD PCP - General 07/28/17 11/10/18 documented as of this encounter
--- OUTSIDE RECORDS SUMMARY | 2023-12-15 13:39 | XMS_ITS | Encounter Summary ---
Author Organization [facility] Address [address] [place] [address] Care Team Providers Care Chief Of Hospital Medicine Name Role Phone Unknown, Provider Primary Care Provider [phone] Encounter Details Date Type Department Care Team (Late st Contact Info) Description 07/30/2021 Lab Requisition [facility] Pathology & Laboratory Medicine - [address] [address] Outr Resulting Lab, Provider Social History Tobacco [...] gonorrhoeae Result Negative Negative 07/31/2021 15:25 EDT [facility] Chlamydia trachomatis Result Negative Negative 07/31/2021 15:25 EDT [facility] Swab ENTIRE WALL OF CERVIX / Unknown 07/29/2021 13:30 EDT 07/30/2021 17:01 EDT Provider Outr Resulting Lab MICROBIOLOGY - GENERAL ORDERABLES [facility] [address] [place] [address] documented in this encounter Visit Diagnoses Not on filedocumented in this encounter Care Teams Chief Of Hospital Medicine Relationship Specialty Start Date End Date Unknown, Provider, PCP - General 11/11/18 documented as of this encounter
--- OUTSIDE RECORDS SUMMARY | 2023-12-15 13:39 | XMS_ITS | Encounter Summary ---
Author Organization [facility] Address [address] [place] [address] Care Team Providers Care Coach Tour Driver Name Role Phone Unknown, Provider Primary Care Provider [phone] Encounter Details Date Type Department Care Team (Late st Contact Info) Description 05/04/[address] [facility] Pathology & Laboratory Medicine - [address] [address] Outr Resulting Lab, Provider Social History Tobacco [...] 11:26 EST) Hold Hold 05/04/2022 18:[address] [facility] Blood VENOUS BLOOD / Unknown 05/04/2022 11:26 EST 05/04/2022 17:01 EST Provider Outr Resulting Lab LAB INFO SER VICE AND SUPPORT & PHONE RESULT Performing Organization Address [facility] Co de Phone Number [facility] [address] [place] [address] * LYME AB (05/04/2022 11:26 EST) Lyme Ab Negative Negative 05/05/2022 9:[address] [facility] Blood VENOUS BLOOD / Unknown 05/04/2022 11:26 EST 05/04/2022 17:01 EST Provider Outr Resulting Lab IMMUNOLOGY A ND SEROLOGY ORDERABLES Performing Organization Address [facility] Phone Number [facility] [address] [place] [address] * ANTI NUCLEAR AB (CHARMAINE), IFA (05/04/2022 11:26 EST) CHARMAINE Interpretation Negative Negative 2022 14:[address] [facility] Comment:No titer performed, CHARMAINE Screen is negative. Blood VENOUS BLOOD / Unknown 05/04/2022 11:26 EST 05/04/2022 17:[address] [facility] - 05/06/2022 14:07 EST Results were obtained with the INOVA NOVA Lite HEp-2 CHARMAINE Kit by indirect immunofluorescence. Provider Outr Resulting Lab IMMUNOLOGY A ND SEROLOGY ORDERABLES Performing Organization Address City/[facility]/ZIP Co de Phone Number [facility] [address] [place] [address] * CELIAC DISEASE PANEL (05/04/2022 11:26 EST) Tissue Transglutaminase Antibody IGA <1.2 <4.0 U/mL 05/07/2022 12:[address] [facility] Comment: A negative result may be due to IgA deficiency and does not rule out celiac disease. ? Negative: ??<4.0 U/mL ? Weak Positive: ??4.0 - 10.0 U/mL ? Positive: ??>10.0 U/mL Results were obtained with the TeachernowA Lite R h-tTG IgA MARAL assay on the TappxX. IgA 205 85 - 499 mg/dL 05/07/2022 12:[address] [facility] Celiac Disease Interpretation Negative Serology. Celiac disease unlikely. Approximately 10% of patients with celiac disease are seronegative. Patients who are already adhering to a gluten-free diet may also be seronegative. If celiac disease is highly clinically suspected, referral to gastroenterology for additional evaluation is recommended. 05/07/2022 12:[address] [facility] Blood VENOUS BLOOD / Unknown 05/04/2022 11:26 EST 05/04/2022 17:01 EST Provider Outr Resulting Lab IMMUNOLOGY A ND SEROLOGY ORDERABLES Performing Organization Address [facility] Co de Phone Number [facility] [address] [place] [address] documented in this encounter Visit Diagnoses Not on filedocumented in this encounter Care Teams Coach Tour Driver Relationship Specialty Start Date End Date Unknown, Provider, PCP - General 11/11/18 documented as of this encounter
--- OUTSIDE RECORDS SUMMARY | 2023-12-15 13:39 | XMS_ITS | Encounter Summary ---
Author Organization [facility] Address [address] [place] [address] Care Team Providers Care Logistics/Shipper Name Role Phone Kimberly Lu MD Primary Care Provider [phone]- [phone] Encounter Details Date Type Department Care Team ([facility] st Contact Info) Description 08/02/2018 Results Only [facility]- PRISM [phone] Olamide Gordon, [facility] [address] [place] [address] Social History Tobacco Use Types [...] EDT) Specimen Description Lip 08/02/2018 13:43 EDT [facility] HSV1 DNA Result POSITIVE(AA) 019 11:10 EDT [facility] HSV2 DNA Result Negative 9 11:10 EDT [facility] TOPOGRAPHY UNKNOWN / Unknown 08/02/2018 11:00 EDT 08/02/2018 13:43 EDT Olamide Gordon DNP MICROBIOLOGY - GENER AL ORDERABLES [facility] [address] [place] [address] documented in this encounter Visit Diagnoses Not on filedocumented in this encounter Care Teams Logistics/Shipper Relationship Specialty Start Date End Date Kimberly Lu MD PCP - General 07/28/17 11/10/18 documented as of this encounter
--- OUTSIDE RECORDS SUMMARY | 2023-12-15 13:39 | XMS_ITS | Encounter Summary ---
Author Organization [facility] Address [address] [place] [address] Care Team Providers Care Animal Care Technician Name Role Phone Kimberly Lu MD Primary Care Provider [phone]- [phone] Encounter Details Date Type Department Care Team ([facility] st Contact Info) Description 08/02/2018 15:04 EDT - 08/02/2018 23:59 EDT Hospital Encounter [address] [address] Olamide Gordon, [facility] [address] [place] [phone] Discharge Disposition: Home or Self Care Social [...] on filedocumented in this encounter Care Teams Animal Care Technician Relationship Specialty Start Date End Date Kimberly Lu MD PCP - General 07/28/17 11/10/18 documented as of this encounter
--- OUTSIDE RECORDS SUMMARY | 2023-12-15 13:39 | XMS_ITS | Encounter Summary ---
Author Organization [facility] Address [address] [place] [address] Care Team Providers Care Health Counselor Name Role Phone Unknown, Provider Primary Care Provider [phone] Encounter Details Date Type Department Care Team (Late st Contact Info) Description 12/15/2023 Lab Requisition [facility] Pathology & Laboratory Medicine - [address] [address] Outr Resulting Lab, Provider Social History Tobacco [...] as of this encounter Plan of Treatment Scheduled Orders Name Type Priority Associated Diagnoses Orde r Schedule RUBELLA IGG ANTIBODY Lab Routine Orde red: 12/15/2023 VARICELLA IGG ANTIBODY Lab Routine Or dered: 12/15/2023 documented as of this encounter Visit Diagnoses Not on filedocumented in this encounter Care Teams Health Counselor Relationship Specialty Start Date End Date Unknown, Provider, PCP - General 11/11/18 documented as of this encounter
--- OUTSIDE RECORDS SUMMARY | 2023-12-15 13:39 | XMS_ITS | Encounter Summary ---
Author Organization [facility] Address [address] [place] [address] Care Team Providers Care Digital Developer Name Role Phone Kimberly Lu MD Primary Care Provider [phone] Reason for Visit * Reason Comments New Patient Visit Lesion - Left thigh Encounter Details Date Type Department Care Team (Late st Contact Info) Description 06/06/2018 8:00 EST Office Visit [facility] Dermatology 3rd Floor [address] [address] Chris Pina MD [address] [facility], Level [address] [place] [phone] Rash (Primary Dx) Social History Tobacco Use [...] the resident's/fellow's note. Chris Pina MD Dermatology [facility] documented in this encounter Plan of Treatment Not on file documented as of this encounter Visit Diagnoses Diagnosis Rash- Primary Rash and other nonspecific skin eruption documented in this encounter Care Teams Digital Developer Relationship Specialty Start Date End Date Kimberly Lu MD PCP - General 07/28/17 11/10/18 documented as of this encounter
--- OUTSIDE RECORDS SUMMARY | 2023-12-15 13:39 | XMS_ITS | Encounter Summary ---
Author Organization [facility] Address [address] [place] [address] Care Team Providers Care Web Developer Programmer Name Role Phone Unknown, Provider Primary Care Provider [phone] Encounter Details Date Type Department Care Team (Late st Contact Info) Description 12/15/2023 Lab Requisition [facility] Pathology & Laboratory Medicine - [facility] [address] [place] [address] Outr Resulting Lab, Provider Social History Tobacco [...] Type Priority Associated Diagnoses Orde r Schedule HEPATITIS C AB W REFLEX TO H CV RNA BY PCR Lab Routine Ordered: 024 HEPATITIS B SURFACE ANTIGEN Lab Routine Ordered: 12/15/2023 documented as of this encounter Visit Diagnoses Not on filedocumented in this encounter Care Teams Web Developer Programmer Relationship Specialty Start Date End Date Unknown, Provider, PCP - General 11/11/18 documented as of this encounter
--- OUTSIDE RECORDS SUMMARY | 2023-12-15 13:39 | XMS_ITS | Encounter Summary ---
Author Organization [facility] Address [address] [place] [address] Care Team Providers Care Relay Operator Name Role Phone Kimberly Lu MD Primary Care Provider [phone] Encounter Details Date Type Department Care Team ([facility] st Contact Info) Description 07/15/2018 Results Only [facility] PRISM [phone] Olamide Gordon, [facility] [address] [place] [address] Social History Tobacco Use Types [...] EDT) Chlamydia Result Negative 07/18/2018 14:49 EDT [facility] GC Result Negative 07/18/2018 14:49 EDT [facility] VAGINAL STRUCTURE / Unknown 07/15/2018 16:00 EDT 07/15/2018 18:12 EDT Olamide Gordon DNP MICROBIOLOGY - GENER AL ORDERABLES Performing Organization Address [facility] Co de Phone Number [facility] [address] [place] [address] * VAGINITIS EXAM (07/15/2018 16:00 EDT) Gram Smear Result Yeast forms Present 07/15/2018 22:55 EDT [facility] Gram Smear Result Smear NOT consistent with bacterial vaginosis. 07/15/2018 22:55 EDT [facility] Result No Trichomonas antigen detected. 07/15/2018 21:15 EDT [facility] VAGINAL STRUCTURE / Unknown 07/15/2018 16:00 EDT 07/15/2018 18:10 EDT Comment:Specimen submitted o n a flocked swab. Olamide Gordon DNP MICROBIOLOGY - GENER AL ORDERABLES Performing Organization Address City/[facility] Co de Phone Number [facility] [address] [place] [address] documented in this encounter Visit Diagnoses Not on filedocumented in this encounter Care Teams Relay Operator Relationship Specialty Start Date End Date Kimberly Lu MD PCP - General 07/28/17 11/10/18 documented as of this encounter
--- OUTSIDE RECORDS SUMMARY | 2023-12-15 13:39 | XMS_ITS | Referral Summary ---
Author Organization [facility] Address [address] [place] [address] Care Team Providers Care Plant Quality Manager Name Role Phone Unknown, Provider Primary Care Provider Encounters Date Type Department Care Team Description 12/15/2023 Lab Requisition [facility] Pathology & Laboratory [address] [address] Outr Resulting Lab, Provider 12/15/2023 Lab Requisition [facility] Pathology & Laboratory [address] [address] Outr Resulting Lab, Provider 12/15/2023 Lab Requisition [facility] Pathology & Laboratory [address] [address] Outr Resulting Lab, Provider from Last 3 Months Allergies Active Allergy Reactions Criticality Noted Date [...] DT Height 162.6 cm (5' 4) 08/05/2017 075 EDT Body Mass Index 20.53 08/05/2017 075 EDT Functional Status Functional Status Response Date [...] of Treatment Not on file Care Teams Plant Quality Manager Relationship Specialty Start Date End Date Unknown, Provider, PCP - General 11/11/18
--- OUTSIDE RECORDS SUMMARY | 2023-12-15 13:39 | XMS_ITS | Encounter Summary ---
Author Organization [facility] Address [address] [place] [address] Care Team Providers Care Dealmaker Name Role Phone Unknown, Provider Primary Care Provider Encounter Details Date Type Department Care Team (Late st Contact Info) Description 09/18/2022 Lab Requisition [facility] Pathology & Laboratory Medicine - [facility] [address] [place] [address] Lucretia Irwin, DO [address] [place], [place] [id number] Other constipation; Chronic anal fissure Social History [...] onset Crohn's disease. Clinical correlation is recommended. Corrections Cadet slides of this case were reviewed at [...] anal fissure, rectal hemorrhage 09/23/2022 12:29 EDT [facility] Gross Description A. Received in [...] JOE RAZO(ASCP) 09/19/2022 10:41 09/23/2022 12:29 EDT [facility] Performing Lab [facility] 09/23/2022 12:29 T [facility] Scanned Images 09/23/2022 12:29 T [facility] Tissue SPECIMEN FROM RECTUM / [...] 19:29 EDT Lucretia Irwin DO PATHOLOGY ORDERABLES [facility] [address] [place] [address] documented in this encounter Visit Diagnoses Diagnosis Other constipation Chronic anal fissure Anal fissure documented in this encounter Care Teams Dealmaker Relationship Specialty Start Date End Date Unknown, Provider, PCP - General 11/11/18 documented as of this encounter
--- OUTSIDE RECORDS SUMMARY | 2023-12-15 13:39 | XMS_ITS | Encounter Summary ---
Author Organization [facility] Address [address] [place] [address] Care Team Providers Care Second Miller Name Role Phone Unknown, Provider Primary Care Provider [phone] Encounter Details Date Type Department Care Team (Latest Contact Info) Description 12/23/2018 16:49 EDT - 12/23/2018 17:23 EDT Hospital Encounter [address] [address] Kimberly Galleogs MD [address] [place] [phone] Discharge Disposition: Home or Self Care [...] on filedocumented in this encounter Care Teams Second Miller Relationship Specialty Start Date End Date Unknown, Provider, PCP - General 11/11/18 documented as of this encounter
--- OUTSIDE RECORDS SUMMARY | 2023-12-15 13:39 | XMS_ITS | Encounter Summary ---
Author Organization [facility] Address [address] [place] [address] Care Team Providers Care Boss Miner Name Role Phone Unknown, Provider Primary Care Provider [phone] Encounter Details Date Type Department Care Team (Late st Contact Info) Description 12/15/2023 Lab Requisition [facility] Pathology & Laboratory Medicine - [address] [address] Outr Resulting Lab, Provider Social History Tobacco [...] Type Priority Associated Diagnoses Orde r Schedule HIV 1/2 ANTIGEN AND ANTIBODY , 4TH GENERATION Lab Routine Ordered: 024 documented as of this encounter Visit Diagnoses Not on filedocumented in this encounter Care Teams Boss Miner Relationship Specialty Start Date End Date Unknown, Provider, PCP - General 11/11/18 documented as of this encounter
--- OUTSIDE RECORDS SUMMARY | 2023-12-15 13:40 | XMS_ITS | Encounter Summary ---
Author Organization [facility] Address [address] [place] [address] Care Team Providers Care Plater Printed Circuit Board Panels Name Role Phone Kimberly Lu MD Primary Care Provider [phone] Reason for Referral * Referral (Routine) - Receiving Office to Obtain Authorization Specialty Diagnoses / Procedures Referred By Contact Referred To Contact Gastroenterology and Hepatology Diagnoses Blood in stool Procedures COLONOSCOPY REQUEST Cedric Echeverria MD [address] [facility] 5 [place] [address] [facility] [address] [place] [address] Referral ID Status Reason Start Date Expiration Date Visits Requested Visits Authorized [id number] Receiving Office to Obtain Authorization 08/05/2017 1 1 Reason for Visit * Reason Comments New Patient Visit blood in stool * Consult (Routine) - Closed Specialty Diagnoses / Procedures Referred By Contact Referred To Contact Gastroenterology and Hepatology Diagnoses Blood in the stool Abdominal pain Kimberly Lu MD [address] [place] [phone] [facility] [address] [place] [address] Referral ID Status Reason Start Date Expiration Date Visits Re quested Visits Authorized [id number] Closed 1 1 Encounter Details Date Type Department Care Team ([facility] st Contact Info) Description 08/05/2017 8:00 EDT Office Visit [facility] Gastroenterology - [address] [address] Cedirc Echeverria MD [address] [facility], [address] [place] [address] Blood in stool (Primary Dx) [...] 37.50% 08/05/2017 075 7 EDT Growth Chart: [facility] (Girls, 2- 20 Years) documented in this [...] suspension Instructions mailed once procedure scheduled. Questions: [facility] Gastroenterology: [phone] or GI Doctor's Office. 4000 mL 08/05/2017 [...] abdominal pain. She is a freshman at [employer] and her symptoms have worsened over the school year. More severe and bothersome, and since December she has had frequent blood per rectum. This happens some with firm stools and more so when having diarrhea. She has a lot of urgency to move her bowels. No fevers. Occasional NSAIDs. No family history of IBD or colorectal cancer. Had bloodwork in ER at [facility] two weeks ago and had anemia [...] Heartburn. added in this encounter Care Teams Plater Printed Circuit Board Panels Relationship Specialty Start Date End Date Kimberly Lu MD PCP - General 07/28/17 11/10/18 documented as of this encounter
--- OUTSIDE RECORDS SUMMARY | 2023-12-15 13:40 | XMS_ITS | Encounter Summary ---
[place] [address] Care Team Providers Care Wrapper Operator Name Role Phone Angie Cardenas MD Primary Care Provider [phone] Reason for Visit * Reason Comments Verrucous Vulgaris Encounter Details Date Type Department Care Team (Late st Contact Info) Description 02/26/2011 11:15 AM EDT Office Visit Dermatology [address] [facility] [address] [place] [address] Wiliam Lynne MD [address] [place] [address] RD, [place] [address] Verruca vulgaris (Primary Dx) Social History Tobacco [...] unspecified documented in this encounter Care Teams Wrapper Operator Relationship Specialty Start Date End Date Angie Cardenas MD [facility] [address] [facility] [place] [address] PCP - General 03/18/10 05/13/11 documented as of this encounter
--- OUTSIDE RECORDS SUMMARY | 2023-12-15 13:40 | XMS_ITS | Clinical Summary ---
[place] [address] Care Team Providers Care Spare Hand Carding Name Role Phone Austyn James APRN Primary Care Provider [phone] Allergies Active Allergy Reactions Criticality Noted Date [...] - Influenza standard series) 12/26/2023 Care Teams Spare Hand Carding Relationship Specialty Start Date End Date Austyn James APRN [address] [place], [place] [id number] PCP - General Family Medicine 04/21/21
--- OUTSIDE RECORDS SUMMARY | 2023-12-15 13:40 | XMS_ITS | Encounter Summary ---
[place] [address] Care Team Providers Care Corporate Compliance Manager Name Role Phone Yael Munguia MD Primary Care Provider [phone] Reason for Visit * Reason Comments Follow-up Encounter Details Date Type Department Care Team (Late st Contact Info) Description 03/09/2013 11:45 AM EST Office Visit Dermatology at [address] [place] [phone] Wiliam Lynne MD [address] [place] [address], [place] [address] Wound check, dressing change (Primary Dx) Social [...] dressing documented in this encounter Care Teams Corporate Compliance Manager Relationship Specialty Start Date End Date Yael Munguia MD [address] [place] [place] [address] PCP - General 05/14/11 04/20/21 documented as of this encounter
--- OUTSIDE RECORDS SUMMARY | 2023-12-15 13:40 | XMS_ITS | Encounter Summary ---
Author Organization [facility] [place] [address] Care Team Providers Care Milk Pasteurizer Name Role Phone Yael Munguia MD Primary Care Provider [phone] Reason for Visit * Reason Comments Skin Lesion * Consultation (Routine) - Specialty Diagnoses / Procedures Referred By Contjacinto lyons Referred To Contact Dermatology Diagnoses Melanocytic nevi of right upper limb, including shoulder Atypicla nevus of Rt Upper Arm Procedures Atypical nevus of Rt upper arm Yael Munguia MD [address] [place] [address] [place] [address] Wiliam Lynne MD [address] [place] [address], [facility] [place] [address] Referral ID Status Reason Start Date Expiration Date V isits Requested Visits Authorized [id number] Consult, Test & Treat PCP Updated and/or Approved 11/26/2016 11/26/2017 6 6 Encounter Details Date Type Department Care Team (Late st Contact Info) Description 04/22/2017 10:45 AM EST Office Visit Dermatology at [address] [address] Wiliam Lynne MD [address] [place] [address], [facility] [place] [address] Nevus Social History Tobacco Use [...] Progress Notes * Wiliam Lynne MD - 04/22/2017 10:45 AM EST PROBLEM: Changing mole right upper lateral arm. Brenna follows up after last seeing me in 08/2013. After a semester at a college in [place] she is now planning to switch and spend the next semester as her second half of her freshman year at [employer]. She is here today with her mother, [...] unspecified documented in this encounter Care Teams Milk Pasteurizer Relationship Specialty Start Date End Date Yael Munguia MD [address] [place] [address] [place] [address] PCP - General 05/14/11 04/20/21 documented as of this encounter
--- OUTSIDE RECORDS SUMMARY | 2023-12-15 13:40 | XMS_ITS | Encounter Summary ---
Author Organization [facility] Address [facility] [place] [address] Care Team Providers Care Mandolin Repairer Name Role Phone Yael Munguia MD Primary Care Provider [phone] Encounter Details Date Type Department Care Team (Late st Contact Info) Description 04/03/2021 Orders Only XRay at [address] [place] [address] Binta Girard, RN [facility] [address] [place] [address] Social History Tobacco Use Types Packs/Day Years [...] on filedocumented in this encounter Care Teams Mandolin Repairer Relationship Specialty Start Date End Date Yael Munguia MD [address] [place] [address] [place] [address] PCP - General 05/14/11 04/20/21 documented as of this encounter
--- OUTSIDE RECORDS SUMMARY | 2023-12-15 13:40 | XMS_ITS | Encounter Summary ---
Author Organization [facility] Address [facility] [place] [address] Care Team Providers Care Leather Stripping Machine Operator Name Role Phone Angie Cardenas MD Primary Care Provider [phone] Encounter Details Date Type Department Care Team (Late st Contact Info) Description 11/28/2010 Abstract Dermatology [address] [facility] [address] [place] [address] Rosa Tucker, RN Social History Tobacco Use [...] on filedocumented in this encounter Care Teams Leather Stripping Machine Operator Relationship Specialty Start Date End Date Angie aCrdenas MD [facility] [place] [address] PCP - General 03/18/10 05/13/11 documented as of this encounter
--- OUTSIDE RECORDS SUMMARY | 2023-12-15 13:40 | XMS_ITS | Encounter Summary ---
[place] [address] Care Team Providers Care Elementary School Music Teacher Name Role Phone Yael Munguia MD Primary Care Provider [phone] Reason for Visit * Reason Comments Follow-up Encounter Details Date Type Department Care Team (Late st Contact Info) Description 10/21/2012 4:45 PM EDT Office Visit Dermatology [facility] [address] [place] [address] Wiliam Lynne MD [address] [place] [address] RD, [place] [address] Verruca vulgaris (Primary Dx) Social History Tobacco [...] unspecified documented in this encounter Care Teams Elementary School Music Teacher Relationship Specialty Start Date End Date Yael Munguia MD [address] [place] [address] PCP - General 05/14/11 04/20/21 documented as of this encounter
--- OUTSIDE RECORDS SUMMARY | 2023-12-15 13:40 | XMS_ITS | Encounter Summary ---
[place] [address] Care Team Providers Care Hand Tire Trimmer Name Role Phone Angie Cardenas MD Primary Care Provider [phone] Reason for Visit * Reason Comments Verrucous Vulgaris Encounter Details Date Type Department Care Team (Late st Contact Info) Description 12/31/2010 4:00 PM EDT Office Visit Dermatology [address] [facility] [address] [place] [address] Wiliam Lynne MD [address] [place] [address] RD, [place] [address] Verruca vulgaris (Primary Dx) Social History Tobacco [...] unspecified documented in this encounter Care Teams Hand Tire Trimmer Relationship Specialty Start Date End Date Angie Cardenas MD [facility] CHILD ADVOCACY & [place] [address] PCP - General 03/18/10 05/13/11 documented as of this encounter
--- OUTSIDE RECORDS SUMMARY | 2023-12-15 13:40 | XMS_ITS | Encounter Summary ---
[place] [address] Care Team Providers Care Belt Loop Cutter Name Role Phone Yael Munguia MD Primary Care Provider [phone] Reason for Visit * Reason Comments Follow-up Encounter Details Date Type Department Care Team (Late st Contact Info) Description 01/19/2013 3:15 PM EDT Office Visit Dermatology [address] [facility] [address] [place] [address] Wiliam Lynne MD [address] [place] [address] RD, [place] [address] Verruca vulgaris (Primary Dx) Social History Tobacco [...] unspecified documented in this encounter Care Teams Belt Loop Cutter Relationship Specialty Start Date End Date Yael Munguia MD [address] [place] [address] PCP - General 05/14/11 04/20/21 documented as of this encounter
--- OUTSIDE RECORDS SUMMARY | 2023-12-15 13:40 | XMS_ITS | Encounter Summary ---
Author Organization [facility] [place] [address] Care Team Providers Care Upset Welding Machine Operator Name Role Phone Yael Munguia MD Primary Care Provider [phone] Reason for Visit * Reason Comments Follow-up Encounter Details Date Type Department Care Team (Late st Contact Info) Description 07/20/2013 8:00 AM EDT Office Visit Dermatology at [address] [place] [address] Wiliam Lynne MD [address] [facility] [address], [place] [address] Verruca vulgaris (Primary Dx) Social History Tobacco [...] from the original note were not included. [facility] Plantar Warts: After Your Visit Your [...] doctor may recommend that you use an ptxy-tdy-tteuhud treatment. These include salicylic acid or duct [...] make walking more comfortable. ?? Take an xvzu-mhc-qcbcfdb medicine, such as acetaminophen (Tylenol), ibuprofen (Advil, [...] warts after 2 to 3 months of qedl-rlb-usmyzkd treatment. ?? Your warts are growing or spreading quickly even with treatment. Where can you learn more? Visit our [employer] information library at [email or web address] You can also view health information on [employer], your personal patient account. Log in or sign up today. Enter S429 in the search box to learn more about Plantar Warts: After Your Visit. ?? [id number] [employer]. Care instructions adapted under license by [facility]. This care instruction is for use with your licensed healthcare professional. If you have questions about a medical condition or this instruction, always ask your healthcare professional. [employer] disclaims any warranty or liability for your use of this information. Content Version: 9.9.919131; Last Revised: November 29, 2012 documented in [...] unspecified documented in this encounter Care Teams Upset Welding Machine Operator Relationship Specialty Start Date End Date Yael Munguia MD [address] [place] [address] PCP - General 05/14/11 04/20/21 documented as of this encounter
--- OUTSIDE RECORDS SUMMARY | 2023-12-15 13:40 | XMS_ITS | Encounter Summary ---
[place] [address] Care Team Providers Care Paper Bag Inspector Name Role Phone Yael Munguia MD Primary Care Provider [phone] Reason for Visit * Reason Comments Procedure Encounter Details Date Type Department Care Team (Late st Contact Info) Description 03/03/2013 3:35 PM EST Office Visit Dermatology at [address] [phone] Wiliam Lynne MD [address] [place] [address], [facility] [place] [address] Verruca vulgaris (Primary Dx) Social History Tobacco [...] unspecified documented in this encounter Care Teams Paper Bag Inspector Relationship Specialty Start Date End Date Yael Munguia MD [address] [place] [address] PCP - General 05/14/11 04/20/21 documented as of this encounter
--- OUTSIDE RECORDS SUMMARY | 2023-12-15 13:40 | XMS_ITS | Encounter Summary ---
[place] [address] Care Team Providers Care Co Chairman Name Role Phone Yael Munguia MD Primary Care Provider [phone] Reason for Visit * Reason Comments Verrucous Vulgaris Encounter Details Date Type Department Care Team (Late st Contact Info) Description 06/04/2011 4:15 PM EST Office Visit Dermatology [facility] [address] [place] [address] Wiliam Lynne MD [address] [place] [address] RD, [place] [address] Verruca vulgaris (Primary Dx) Social History Tobacco [...] unspecified documented in this encounter Care Teams Co Chairman Relationship Specialty Start Date End Date Yael Munguia MD [address] [place] [address] PCP - General 05/14/11 04/20/21 documented as of this encounter
--- OUTSIDE RECORDS SUMMARY | 2023-12-15 13:40 | XMS_ITS | Encounter Summary ---
[place] [address] Care Team Providers Care Aerial Installer Name Role Phone Angie Cardenas MD Primary Care Provider [phone] Reason for Visit * Reason Comments Verrucous Vulgaris Encounter Details Date Type Department Care Team (Late st Contact Info) Description 04/23/2011 4:15 PM EST Office Visit Dermatology [address] [facility] [address] [place] [address] Wiliam Lynne MD [address] [place] [address] RD, [place] [address] Verruca vulgaris (Primary Dx) Social History Tobacco [...] unspecified documented in this encounter Care Teams Aerial Installer Relationship Specialty Start Date End Date Angei Cardenas MD [facility] CHILD ADVOCACY & [place] [address] PCP - General 03/18/10 05/13/11 documented as of this encounter
--- OUTSIDE RECORDS SUMMARY | 2023-12-15 13:40 | XMS_ITS | Encounter Summary ---
[place] [address] Care Team Providers Care Innovation Manager Name Role Phone Yael Munguia MD Primary Care Provider [phone] Reason for Visit * Reason Comments Verrucous Vulgaris Encounter Details Date Type Department Care Team (Late st Contact Info) Description 06/25/2011 11:15 AM EST Office Visit Dermatology [address] [facility] [address] [place] [address] Wiliam Lynne MD [address] [place] [address] RD, [place] [address] Verruca vulgaris (Primary Dx) Social History Tobacco [...] as of this encounter Progress Notes * Wilaim Lynne MD - 06/25/2011 11:39 AM EST [...] unspecified documented in this encounter Care Teams Innovation Manager Relationship Specialty Start Date End Date Yael Munguia MD [address] [place] [address] PCP - General 05/14/11 04/20/21 documented as of this encounter
--- OUTSIDE RECORDS SUMMARY | 2023-12-15 13:40 | XMS_ITS | Encounter Summary ---
[place] [address] Care Team Providers Care Legal Examiner Name Role Phone Yael Munguia MD Primary Care Provider [phone] Reason for Visit * Reason Comments Follow-up Encounter Details Date Type Department Care Team (Late st Contact Info) Description 09/05/2013 4:00 PM EDT Office Visit Dermatology at [address] [place] [phone] Wiliam Lynne MD [address] [facility] [address], [place] [address] Verruca vulgaris (Primary Dx) Social History Tobacco [...] from the original note were not included. [facility] Plantar Warts: After Your Visit Your Care [...] doctor may recommend that you use an kuvv-ngy-asfidqj treatment. These include salicylic acid or duct [...] make walking more comfortable. ?? Take an fpfm-dzk-nsnzgan medicine, such as acetaminophen (Tylenol), ibuprofen (Advil, [...] warts after 2 to 3 months of vtzf-tkg-ezkgnyj treatment. ?? Your warts are growing or spreading quickly even with treatment. Where can you learn more? Visit our [employer] information library at [email or web address] You can also view health information on [employer], your personal patient account. Log in or sign up today. Enter S429 in the search box to learn more about Plantar Warts: After Your Visit. ?? [id number] [employer]. Care instructions adapted under license by [facility]. This care instruction is for use with your licensed healthcare professional. If you have questions about a medical condition or this instruction, always ask your healthcare professional. [employer] disclaims any warranty or liability for your use of this information. Content Version: [id number]; Last Revised: November 29, 2012 documented in [...] unspecified documented in this encounter Care Teams Legal Examiner Relationship Specialty Start Date End Date Yael Munguia MD [address] [place] [address] PCP - General 05/14/11 04/20/21 documented as of this encounter
--- OUTSIDE RECORDS SUMMARY | 2023-12-15 13:40 | XMS_ITS | Encounter Summary ---
[place] [address] Care Team Providers Care Construction And Maintenance Inspector Name Role Phone Yael Munguia MD Primary Care Provider [phone] Reason for Visit * Reason Comments Verrucous Vulgaris Encounter Details Date Type Department Care Team (Late st Contact Info) Description 05/14/2011 3:45 PM EST Office Visit Dermatology [address] [facility] [address] [place] [address] Wiliam Lynne MD [address] [place] [address] RD, [place] [address] Verruca vulgaris (Primary Dx) Social History Tobacco [...] unspecified documented in this encounter Care Teams Construction And Maintenance Inspector Relationship Specialty Start Date End Date Yael Munguia MD [address] [place] [address] PCP - General 05/14/11 04/20/21 documented as of this encounter
--- OUTSIDE RECORDS SUMMARY | 2023-12-15 13:40 | XMS_ITS | Encounter Summary ---
[place] [address] Care Team Providers Care Assistant Secretary Name Role Phone Yael Munguia MD Primary Care Provider [phone] Reason for Visit * Reason Comments Follow-up Encounter Details Date Type Department Care Team (Late st Contact Info) Description 01/05/2013 4:00 PM EDT Office Visit Dermatology [address] [facility] [address] [place] [address] Wiliam Lynne MD [address] [address] RD, [place]LAY[place] [address] Verruca vulgaris (Primary Dx) Social History Tobacco [...] unspecified documented in this encounter Care Teams Assistant Secretary Relationship Specialty Start Date End Date Yael Munguia MD [address] [place] [address] PCP - General 05/14/11 04/20/21 documented as of this encounter
--- OUTSIDE RECORDS SUMMARY | 2023-12-15 13:40 | XMS_ITS | Encounter Summary ---
Author Organization [facility] Address [address] [place] [address] Care Team Providers Care Development Technical Lead Name Role Phone Kimberly Lu MD Primary Care Provider [phone] Reason for Visit * Reason Comments Follow-up seen yesterday for l olena on left thigh, noticed today spreading redness, worried about infection Encounter Details Date Type Department Care Team (Latest Contact Info) Description 06/03/2018 15:45 EST - 06/03/2018 17:18 EST Hospital Encounter [facility] - [address] [address] Chiqui Carmichael PA-C [address] [place] [phone] Unknown, Provider, Skin lesion (Primary Dx) Discharge [...] through Care Everywhere. * SKIN CONDITION: ANTIBIOTICS (NORWEGIAN) documented in this encounter Medications at Time [...] further medications. Upon departure from [facility], the patient's pain was 0 on a zero to ten scale. Any further pain treatment will be at the discretion of the provider following up with the patient based on their clinical assessment . Condition at departure from the [facility] : Stable MDM 06/03/2018 [...] Result No polys seen 06/04/2018 7:23 EST [facility] Gram Smear Result No bacteria seen 06/04/2018 7:23 EST [facility] Result No growth 06/05/2018 9:02 [facility] Specimen of unknown material (specimen) LOWER LIMB STRUCTURE / Unknown 06/03/2018 17:20 EST 06/03/2018 17:21 EST Comment:Performed at [facility] [place], [place] Chiqui Carmichael PA-C MICROBIOLOGY - GENERAL ORDERABLES [facility] [address] [place] [address] documented in this encounter Visit Diagnoses Diagnosis Skin lesion- Primary Unspecified disorder of skin and subcutaneous tissue documented in this encounter Care Teams Development Technical Lead Relationship Specialty Start Date End Date Kimberly Lu MD PCP - General 07/28/17 11/10/18 documented as of this encounter
--- OUTSIDE RECORDS SUMMARY | 2023-12-15 13:40 | XMS_ITS | Encounter Summary ---
[place] [address] Care Team Providers Care Director Of Event Marketing Name Role Phone Angie Cardenas MD Primary Care Provider [phone] Reason for Visit * Reason Comments Verrucous Vulgaris Encounter Details Date Type Department Care Team (Late st Contact Info) Description 01/15/2011 4:30 PM EDT Office Visit Dermatology [address] [facility] [address] [place] [address] Wiliam Lynne MD [address] [place] [address] RD, [place] [address] Verruca vulgaris (Primary Dx) Social History Tobacco [...] unspecified documented in this encounter Care Teams Director Of Event Marketing Relationship Specialty Start Date End Date Angie Cardenas MD [facility] CHILD ADVOCACY & [place] [address] PCP - General 03/18/10 05/13/11 documented as of this encounter
--- OUTSIDE RECORDS SUMMARY | 2023-12-15 13:40 | XMS_ITS | Encounter Summary ---
Author Organization [facility] Address [address] [place] [address] Care Team Providers Care Director Prison Name Role Phone Kimberly Lu MD Primary Care Provider [phone] Reason for Referral * Consult (3 - 10 Business Days) - Receiving Office to Obtain Authorization Specialty Diagnoses / Procedures Referred By Jocelyne lyons Referred To Contact Dermatology Diagnoses Benign skin lesion of thigh Jessica Fragoso NP [address] [place] [address] [place] [address] Dermatology [address] [place] [address] Referral ID Status Reason Start Date Expiration Date Visits Requested Visits Authorized [id number] Receiving Office to Obtain Authorization Specialty Services [...] EST - 06/02/2018 16:19 EST Hospital Encounter [facility] - [address] [address] Jessica Fragoso, PREMA [address] [place] [address] Unknown, Provider, Benign skin lesion [...] this encounter Discharge Instructions * Discharge Instructions* eJssica Fragoso FNP - 06/02/2018 16:23 EST The [...] photograph, that is helpful to show the coordinator skill training program. documented in this encounter Medications at Time [...] pills, otherwise, no medications SH: Student at [employer], non-smoker FH: Noncontributory Review of [...] of further medications. Upon departure from [facility], the patient's pain was 0 on a zero to ten scale. Any further pain treatment will be at the discretion of the provider following up with the patient based on their clinical assessment . Condition at departure from the [facility] : Stable MDM 06/02/2018 [...] tissue documented in this encounter Care Teams Director Prison Relationship Specialty Start Date End Date Kimberly Lu MD PCP - General 07/28/17 11/10/18 documented as of this encounter
--- OUTSIDE RECORDS SUMMARY | 2023-12-15 13:40 | XMS_ITS | Encounter Summary ---
Author Organization [facility] [place] [address] Care Team Providers Care Sap Security Architect Name Role Phone Yael Munguia MD Primary Care Provider [phone] Reason for Visit * Reason Comments Follow-up Encounter Details Date Type Department Care Team (Late st Contact Info) Description 10/07/2012 10:45 AM EDT Office Visit Dermatology [address] [facility] [address] [place] [address] Wiliam Lynne MD [address] [place] [address] RD, [place] [address] Verruca vulgaris (Primary Dx) Social History Tobacco [...] unspecified documented in this encounter Care Teams Sap Security Architect Relationship Specialty Start Date End Date Yael Munguia MD [address] [place] [place] [address] PCP - General 05/14/11 04/20/21 documented as of this encounter
--- OUTSIDE RECORDS SUMMARY | 2023-12-15 13:40 | XMS_ITS | Encounter Summary ---
[place] [address] Care Team Providers Care Vp Business Development Name Role Phone Angie Cardenas MD Primary Care Provider [phone] Reason for Visit * Reason Comments Verrucous Vulgaris Encounter Details Date Type Department Care Team (Late st Contact Info) Description 12/01/2010 2:45 PM EDT Office Visit Dermatology [address] [facility] [address] [place] [address] Wiliam Lynne MD [address] [place] [address] RD, [place] [address] Verruca vulgaris (Primary Dx) Social History Tobacco [...] unspecified documented in this encounter Care Teams Vp Business Development Relationship Specialty Start Date End Date Angie Cardenas MD [facility] CHILD ADVOCACY & [place] [address] PCP - General 03/18/10 05/13/11 documented as of this encounter
--- OUTSIDE RECORDS SUMMARY | 2023-12-15 13:40 | XMS_ITS | Encounter Summary ---
[place] [address] Care Team Providers Care Medication Manager Name Role Phone Yael Munguia MD Primary Care Provider [phone] Reason for Visit * Reason Comments Follow-up Encounter Details Date Type Department Care Team (Late st Contact Info) Description 08/10/2013 8:45 AM EDT Office Visit Dermatology at [address] [place] [phone] Wiliam Lynne MD [address] [facility] [address], [place] [address] Verruca vulgaris (Primary Dx) Social History Tobacco [...] unspecified documented in this encounter Care Teams Medication Manager Relationship Specialty Start Date End Date Yael Munguia MD [address] [place] [address] PCP - General 05/14/11 04/20/21 documented as of this encounter
--- OUTSIDE RECORDS SUMMARY | 2023-12-15 13:40 | XMS_ITS | Encounter Summary ---
[place] [address] Care Team Providers Care Experimental Mechanic Spacecraft Name Role Phone Yael Munguia MD Primary Care Provider [phone] Reason for Visit * Reason Comments Follow-up Encounter Details Date Type Department Care Team (Late st Contact Info) Description 12/16/2012 8:00 AM EDT Office Visit Dermatology [address] [facility] [address] [place] [address] Wiliam Lynne MD [address] [place] [address] RD, BLAY[place] [address] Verruca vulgaris (Primary Dx) Social History Tobacco [...] unspecified documented in this encounter Care Teams Experimental Mechanic Spacecraft Relationship Specialty Start Date End Date Yael Munguia MD [address] [place] [address] PCP - General 05/14/11 04/20/21 documented as of this encounter
--- OUTSIDE RECORDS SUMMARY | 2023-12-15 13:40 | XMS_ITS | Encounter Summary ---
Author Organization [facility] Address [facility] [place] [address] Care Team Providers Care Adoption Services Manager Name Role Phone Austyn James APRN Primary Care Provider [phone] Reason for Referral * Diagnostic Test (Routine) - Closed Specialty Diagnoses / Procedures Referred By Pemaac t Referred To Contact Radiology Diagnoses Tear of left acetabular labrum, initial encounter Procedures XR Fluoro Arthrogram Injection Hip Left Lucio Maldonado MD [address] [place] [address] [facility] [address] [place] [address] [place] [address] Referral ID Status Reason Start Date Expiration Date V isits Requested Visits Authorized [id number] Closed Specialty Service Requested 04/04/2021 04/30/2021 1 1 Reason for Visit * Diagnostic Test (Routine) - Closed Specialty Diagnoses / Procedures Referred By Contac t Referred To Contact Radiology Diagnoses Tear of left acetabular labrum, initial encounter Procedures XR Fluoro Arthrogram Injection Hip Left Lucio Maldonado MD [address] [place] [address] [facility] [address] [place] [address] [place] [address] Referral ID Status Reason Start Date Expiration Date V isits Requested Visits Authorized [id number] Closed Specialty Service Requested 04/04/2021 04/30/2021 1 1 Encounter Details Date Type Department Care Team (Latest Contact Info) Description 04/21/2021 9:26 AM EST - 04/21/2021 11:59 PM EST Hospital Encounter XRay at [address] [place] [address] Lucio Maldonado MD [address] [place] [address] Tear of left acetabular labrum, initial encounter [...] telephone the diagnostic section of radiology at [phone]. documented in this encounter Medications at Time [...] who have questions please contact the health physician assistant primary care that requested your imaging first. ? --------ORIGINAL REPORT -------- HISTORY: ??Femoroacetabular impingement of left hip. Labral tear of left hip joint. , MR arthrogram of left hip Arthrogram For Injection Of Contrast TECHNIQUE: After an extensive conversation with the patient regarding risks and benefits, oral and written consent were obtained.? A pre-procedural time-out was performed, including review of the patient's relevant electronic medical record and allergies, as per [facility] protocol. The patient was positioned supine on [...] who have questions please contact the health physician assistant primary care that requested your imaging first. ? Impressions 04/21/2021 11:00 AM EST Uneventful arthrogram of left hip joint Resident/Fellow: None Attending: None Thank you for letting us participate in the care of this patient. ??If you are a health care provider and have any questions regarding this report, please contact the number below. ??For patients who have questions please contact the health physician assistant primary care that requested your imaging first. ? Narrative 04/21/2021 11:00 AM EST HISTORY: ??Femoroacetabular [...] electronic medical record and allergies, as per [facility] protocol. The patient was positioned supine on [...] relevant electronic medicalrecord and allergies, as per [facility] protocol. The patient was positioned supine on [...] patients who have questions please contactthe health physician assistant primary care that requested your imaging first. Lucio Maldonado [...] mLs documented in this encounter Care Teams Adoption Services Manager Relationship Specialty Start Date End Date Austyn James APRN [address] [place] [address] PCP - General Family Medicine 04/21/21 documented as of this encounter
--- OUTSIDE RECORDS SUMMARY | 2023-12-15 13:40 | XMS_ITS | Encounter Summary ---
[place] [address] Care Team Providers Care Sap Architect Name Role Phone Yael Munguia MD Primary Care Provider [phone] Reason for Visit * Reason Comments Follow-up Encounter Details Date Type Department Care Team (Late st Contact Info) Description 05/02/2013 9:00 AM EST Office Visit Dermatology at [address] [place] [phone] Wiliam Lynne MD [address] [place] [address], [place] [address] Verruca vulgaris (Primary Dx) Social History Tobacco [...] documented in this encounter Care Teams Sap Architect Relationship Specialty Start Date End Date Yael Munguia MD [address] [place] [address] PCP - General 05/14/11 04/20/21 documented as of this encounter
--- OUTSIDE RECORDS SUMMARY | 2023-12-15 13:40 | XMS_ITS | Encounter Summary ---
[place] [address] Care Team Providers Care Prepleater Name Role Phone Austyn James APRN Primary Care Provider [phone]- [phone] Reason for Referral * Diagnostic Test (Routine) - Closed Specialty Diagnoses / Procedures Referred By Contac t Referred To Contact Radiology Diagnoses Tear of left acetabular labrum, initial encounter Procedures MRI Arthrogram Hip Left Lucio Maldonado MD [address] [place] [address] [place] [address] Referral ID Status Reason Start Date Expiration Date V isits Requested Visits Authorized [id number] Closed Specialty Service Requested 04/04/2021 04/30/2021 1 1 Reason for Visit * Diagnostic Test (Routine) - Closed Specialty Diagnoses / Procedures Referred By Contac t Referred To Contact Radiology Diagnoses Tear of left acetabular labrum, initial encounter Procedures MRI Arthrogram Hip Left Lucio Maldonado MD [address] [place] [address] [place] [address] Referral ID Status Reason Start Date Expiration Date V isits Requested Visits Authorized [id number] Closed Specialty Service Requested 04/04/2021 04/30/2021 1 1 Encounter Details Date Type Department Care Team (Latest Contact Info) Description 04/21/2021 9:26 AM EST - 04/21/2021 11:59 PM EST Hospital [place] [phone] Lucio Maldonado MD [address] [place] [address] Tear of left acetabular labrum, initial encounter [...] who have questions please contact the health sub acute care nurse that requested your imaging first. ? Narrative 04/21/2021 11:48 AM EST EXAMINATION: MRI ARTHROGRAM HIP LEFT CLINICAL HISTORY: ZORAIDA left hip; tear of left acetabular labrum, initial encounter TECHNIQUE: Following the intra-articular administration of dilute gadolinium based contrast, MRI of the left hip was performed using axial PD FS; axial oblique T1 FS; coronal T1 FS, T2 FS and sagittal PD FS sequences. Full pelvis [id number] coronal T1 and STIR sequences are provided. [...] FS and sagittal PD FS sequences. Fullpelvis [id number] coronal T1 and STIR sequences are provided. [...] patients who have questions please contactthe health sub acute care nurse that requested your imaging first. Lucio Maldonado MD IMG MRI ORDERABLES documented in this encounter Visit Diagnoses Diagnosis Tear of left acetabular labrum, initial encounter documented in this encounter Care Teams Prepleater Relationship Specialty Start Date End Date Austyn James, MANAGEMENT MANAGER [address] [place] [address] [address] [facility] [address] [place] [address] PCP - General Family Medicine 04/21/21 documented as of this encounter
--- OUTSIDE RECORDS SUMMARY | 2023-12-15 13:40 | XMS_ITS | Encounter Summary ---
Author Organization [facility] [place] [address] Care Team Providers Care Tobacco Sizer Name Role Phone Yael Munguia MD Primary Care Provider [phone] Reason for Visit * Reason Comments Follow-up Encounter Details Date Type Department Care Team (Late st Contact Info) Description 06/02/2013 9:15 AM EST Office Visit Dermatology at [address] [place] [phone] Wiliam Lynne MD [address] [place] [address], [place] [address] Verruca vulgaris (Primary Dx) Social History Tobacco [...] unspecified documented in this encounter Care Teams Tobacco Sizer Relationship Specialty Start Date End Date Yael Munguia MD [address] [place] [address] PCP - General 05/14/11 04/20/21 documented as of this encounter
--- OUTSIDE RECORDS SUMMARY | 2023-12-15 13:40 | XMS_ITS | Encounter Summary ---
[place] [address] Care Team Providers Care Field Project Manager Name Role Phone Yael Munguia MD Primary Care Provider [phone] Reason for Visit * Reason Comments Follow-up Encounter Details Date Type Department Care Team (Late st Contact Info) Description 06/19/2013 10:15 AM EST Office Visit Dermatology at [address] [phone] Wiliam Lynne MD [address] [facility], [place] [address] Verruca vulgaris (Primary Dx) Social History Tobacco [...] unspecified documented in this encounter Care Teams Field Project Manager Relationship Specialty Start Date End Date Yael Munguia MD [address] [place] [address] PCP - General 05/14/11 04/20/21 documented as of this encounter
--- OUTSIDE RECORDS SUMMARY | 2023-12-15 13:40 | XMS_ITS | Encounter Summary ---
[place] [address] Care Team Providers Care Sausage Canner Name Role Phone Yael Munguia MD Primary Care Provider [phone] Reason for Visit * Reason Comments Follow-up Encounter Details Date Type Department Care Team (Late st Contact Info) Description 04/14/2013 3:45 PM EST Office Visit Dermatology at [address] [place] [phone] Wiliam Lynne MD [address] [facility], [place] [address] Verruca vulgaris (Primary Dx) Social History Tobacco [...] unspecified documented in this encounter Care Teams Sausage Canner Relationship Specialty Start Date End Date Yael Munguia MD [address] [place] [address] PCP - General 05/14/11 04/20/21 documented as of this encounter
--- OUTSIDE RECORDS SUMMARY | 2023-12-15 13:40 | XMS_ITS | Encounter Summary ---
Author Organization [facility] Address [address] [place] [address] Care Team Providers Care Business Technology Professor Name Role Phone Kimberly Lu MD Primary Care Provider [phone] Reason for Visit * Reason Onset Date Comments Follow-up 06/03/2018 UC visit on for spost on legs Encounter Details Date Type Department Care Team (Late st Contact Info) Description 06/03/2018 Telephone [facility] - [address] [phone] Tommy Ritter, IAN [address] [place] [address] Follow-up (UC visit on 06/02/18 for spost [...] PCP- was a pt of 'kvng in [facility], now at [facility]- enc pt to see adult care practioner- [...] on filedocumented in this encounter Care Teams Business Technology Professor Relationship Specialty Start Date End Date Kimberly Lu MD PCP - General 07/28/17 11/10/18 documented as of this encounter
[2023-12-15 14:13] LABS: *AMPHETAMINES SCREEN URINE Negative (Negative); *BARBITURATES SCREEN URINE Negative (Negative); *BENZODIAZEPINES SCREEN URINE Negative (Negative); Cannabinoids THC Negative (Negative); Cocaine Screen,Urine Negative (Negative); METHADONE URINE SCREEN Negative (Negative); OPIATES URINE SCREEN Negative (Negative)
[2023-12-15 14:14] LABS: Tricyclic Antidepressants Negative (Negative)
[2023-12-16 12:45] LABS: Chlamydia Result Negative (Negative); GC Result Negative (Negative)
[2023-12-24 09:16] LABS: Buprenorphine Negative ng/mL (Cutoff: 5.0); Norbuprenorphine Negative ng/mL (Cutoff: 2.5)
== END 2023-12-15 13:30 | disposition home or self-care (01) ==
LOC: LBN 13:29
PROVIDERS: PCP Nurse Practitioner Family; Visit Provider Advanced Practice Midwife
DX: Z34.91 Encounter for supervision of normal pregnancy, unspecified, first trimester (principal)
CPT/HCPCS: 80307; 80348; 87491; 87591; 87086

== ENCOUNTER 2024-03-16 16:12 | Emergency (ER) | payer BC, SELFPAY ==
[2024-03-16 16:15] VITALS: BP 121/80; PULSE 91; RESP 14; TEMP 36; O2SAT 98
--- NOTE | 2024-03-16 16:28 | ED.GENADUL_ITS ---
Discharge Plan Disposition Patient Disposition: Home Condition: Stable Discharge Details Clinical Impression: Epistaxis Primary Care Provider: Austyn James ED Provider: Claudio Barton Home Meds and New Rx's Prescriptions: Continued ondansetron HCl 4 mg tablet 4 mg PO Q6H PRN (Reason: nausea and vomiting) Qty: 20 2RF Classic 28 mg iron- 800 mcg tablet 1 tab PO DAILY pantoprazole [Protonix] 40 mg tablet,delayed release (DR/EC) 40 mg PO DAILY Qty: 30 6RF psyllium husk [Metamucil] 0.4 gram capsule 0.4 g PO DAILY PRN (Reason: constipation) Qty: 1 0RF docusate sodium [Colace] 100 mg capsule 100 mg PO DAILY Discharge Instructions Additional Instructions: Use the nasal spray twice daily for 3 days. If you have recurrent bleeding that does not stop with nasal clamping and leaning her head forward after 15 minutes return to the emergency department for likely nasal packing. Follow-up with your primary care provider or BOILER OPERATOR HELPER as needed. If you continue to have recurrent nosebleeds you may want to ask your providers to refer you to see an securities research analyst. Trying to keep your on humidified is recommended to try and help this. HPI General Mode of arrival: ambulatory . Date/Time Provider Initiated Documentation: 03/16/24 16:19 . Limitations to Documentation: no limitations . Information obtained by: patient . History of Present Illness 23 year old F presents to the emergency department with the chief complaint of nose bleed, described as moderate, Patient started experiencing this hour(s) (1) and it has been intermittent. No relieving factors improve symptom(s), No exacerbating factors reported . Patient notes denies fever/chills. Related Data Home Medications ?Medication ?Instructions ?Recorded ?Confirmed ondansetron HCl 4 mg tablet 4 mg PO Q6H PRN nausea and 11/15/23 03/16/24 vomiting #20 tabs pantoprazole 40 mg tablet,delayed 40 mg PO DAILY #30 tabs 12/15/23 03/16/24 release (Protonix) vits no.126-ferrous fum 1 tab PO DAILY 12/15/23 03/16/24 28 mg iron-folic acid 800 mcg tablet (Classic ) psyllium husk 0.4 gram capsule 0.4 g PO DAILY PRN constipation #1 01/12/24 03/16/24 (Metamucil) cap docusate sodium 100 mg capsule 100 mg PO DAILY 03/16/24 03/16/24 (Colace) Previous Rx's ?Medication ?Instructions ?Recorded ondansetron HCl 4 mg tablet 4 mg PO Q6H PRN nausea and 11/15/23 vomiting #20 tabs pantoprazole 40 mg tablet,delayed 40 mg PO DAILY #30 tabs 12/15/23 release (Protonix) psyllium husk 0.4 gram capsule 0.4 g PO DAILY PRN constipation #1 01/12/24 (Metamucil) cap Allergies Allergy/AdvReac Type Severity Reaction Status Date / Time amoxicillin AdvReac Intermediate Diarrhea Verified 03/16/24 16:17 amoxicillin trihydrate (From AdvReac Intermediate Diarrhea Verified 03/16/24 16:17 Augmentin) potassium clavulanate (From AdvReac Intermediate Diarrhea Verified 03/16/24 16:17 Augmentin) General Stated Complaint: Epistaxis JEFFREY: 3 Review of Systems All systems reviewed & are unremarkable except as noted in HPI and below Constitutional Constitutional: Denies chills, Denies fever(s) and Denies weakness ENT Ears, Nose, Mouth, and Throat: Reports epistaxis Cardiovascular Cardiovascular: Denies chest pain Gastrointestinal Gastrointestinal: Denies abdominal pain and Denies vomiting Neurologic Neurologic: Denies weakness Exam Const General: no acute distress Orientation: alert [facility] Head: normal to inspection Ears: external ears normal General nose exam: external nose normal and epistaxis Mouth: moist mucous membranes Eyes General: appearance normal, both eyes and all related structures Neck Neck: normal visual inspection Resp Effort & Inspection: normal respiratory effort and able to speak in complete sentences Cardio Rate: regular rate Skin General skin exam: no rashes or lesions noted Neuro General: patient alert and patient oriented x3 Extrem General: normal to inspection Psych Mental Status: mental status grossly normal Course Vital Signs Vital signs: Vital Signs Temperature 36.0 C L 03/16/24 16:15 Pulse 91 H 03/16/24 16:15 Respiratory Rate 14 03/16/24 16:15 Blood Pressure 121/80 03/16/24 16:15 Pulse Oximetry 98 03/16/24 16:15 Temperature 36.0 C L 03/16/24 16:15 Temperature Source Skin 03/16/24 16:15 Pulse 91 H 03/16/24 16:15 Respiratory Rate 14 03/16/24 16:15 Blood Pressure 121/80 03/16/24 16:15 Blood Pressure Position Sitting 03/16/24 16:15 Pulse Oximetry 98 03/16/24 16:15 Oxygen Delivery Method Room Air 03/16/24 16:15 Oxygen Flow Rate 0 03/16/24 16:15 Pain Level 0 03/16/24 16:15 Medical Decision Making 23-year-old female is currently 24 weeks who comes in with nosebleed that started on the left and then started having some lateral right nose. Denies any fevers, no trauma to the face or nose. She does note she has had cold symptoms with a runny nose for couple days as well. She is well-appearing on exam. She has a slow oozing out of the left nose. Nasal clamp applied. Will have this on her for 15 minutes and reassess. Patient reassessed, CBC unremarkable. Nasal clamp removed and there is no active bleeding. There is no visible area that I can cauterize. Discussed that there is no data on safety of Afrin but is likely safe so she consents to have this. Discussed that if she has recurrent bleeding that does not stop with holding pressure for 15 minutes she needs to come back and likely have a nasal packing placed. Differential Diagnosis Differential Diagnosis: Sinusitis, anterior epistaxis, posterior epistaxis Quality:SDOH Health Related Social Needs: No Data to Display PFSH All Active Problems (Updated 03/16/24 @ 16:57 by Claudio Barton MD) Epistaxis (Acute) Irritable bowel syndrome with constipation (Acute) Family history of thyroid disease (Acute) (Acute) Anxiety (Chronic) Scoliosis (Acute) Gastroesophageal reflux disease (Chronic) Medical History (Updated 03/16/24 @ 16:57 by Claudio Barton MD) Chronic constipation with overflow Chronic anal fissure Lactose intolerance Family history of irritable bowel syndrome Labral tear of left hip joint surgical repair in 2021 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 Paternal Grandfather Substance use disorder Alcohol use disorder Maternal Grandmother Alcohol use disorder Thyroid disease Paternal Grandmother Thyroid disease Social History Smoking/Tobacco Use Status: Never Second Hand Exposure: No Smoking risk assessment performed?: Yes Alcohol Intake: current Alcohol Intake frequency: a few times a week Alcohol type: beer, wine and hard liquor Drug use: Occasionally Substance use type: marijuana Adopted: No Caregiver/Support person: No Foster care: No Household members: significant other Housing: house Number of Children: 0 Communication Needs: None Do you need help understanding health information?: Never Pets and animals: Yes Pets and animals: cat(s) Sexually active: Yes Do you think of yourself as: straight/heterosexual Current gender identity: female What is your relationship status?: living with partner How often do you talk on the phone with friends or family?: three or more times per week How often do you get together with friends or relatives?: once per week How often do you attend episcopal or muslim services?: decline to answer Do you belong to any clubs or organized social groups?: no Panel score (0-1 are the most socially isolated patients): 2 What type of physical activity do you participate in: aerobic, bicycling and other Details: DANCING Duration: 45-60 minutes/day Frequency: 5-6 times per week Marilia/Yarsani: No preference Special marilia needs: No Seatbelt use: always Helmet use: Yes Helmet use: always Drive intox or ride w/intox mixer driver: No Do you feel safe at home: Yes Do you feel safe in your relationship?: Yes Female Reproductive History Menstrual control method: progestin IUCD History History 1 Para 0 Hx # Term Pregnancies 0 Multiple births 0 Hx # Pregnancies 0 Ectopic pregnancies 0 AB induced 0 Hx Number of Living Children 0 AB spontaneous 0
[2024-03-16 16:47] LABS: Abs Immature Grans 0.06 10^3/uL (0.0-0.06); Absolute Basophil Count 0.04 10^3/uL (0.0-0.2); Absolute Eosinophil Count 0.11 10^3/uL (0.0-0.7); Absolute Monocyte Count 0.68 10^3/uL (0.1-0.8); Absolute Neutrophil Count 8.48 10^3/uL (1.2-6.7); Basophils % 0.4 %; HCT 35.9 % (36.0-46.0); HGB 12.3 g/dL (11.2-15.7); Immature Grans % 0.5 %; Lymphocytes % 14.6 %; MCH 30.7 pg (27.0-33.0); MCHC 34.3 % (32.0-36.0); MCV 90 fL (80-95); MPV 8.8 fL (8.0-11.0); Monocytes % 6.2 %; Neutrophils % 77.3 %; Platelet Count 217 10^3/uL (130-400); RBC 4.01 10^6/uL (3.93-5.22); RDW 12.5 % (11.7-14.6); RDW-SD 41.2 fL; WBC 10.97 10^3/uL (4.4-10.8)
--- OUTSIDE RECORDS SUMMARY | 2024-03-16 16:51 | XMS_ITS | Encounter Summary ---
Author Organization [facility] [place] [address] Care Team Providers Care Locks Tender Name Role Phone Yael Munguia MD Primary Care Provider [phone] Reason for Visit * Reason Comments Follow-up Encounter Details Date Type Department Care Team (Late st Contact Info) Description 10/07/2012 10:45 AM EDT Office Visit Dermatology [address] [facility] [address] [place] [address] Wiliam Lynne MD [address] [place] [address] RD, [place] [address] Verruca vulgaris (Primary Dx) Social History Tobacco [...] unspecified documented in this encounter Care Teams Locks Tender Relationship Specialty Start Date End Date Yael Munguia MD [address] [place] [address] PCP - General 05/14/11 04/20/21 documented as of this encounter
--- OUTSIDE RECORDS SUMMARY | 2024-03-16 16:51 | XMS_ITS | Encounter Summary ---
[place] [address] Care Team Providers Care Director Retail Brand Development Name Role Phone Yael Munguia MD Primary Care Provider [phone] Reason for Visit * Reason Comments Follow-up Encounter Details Date Type Department Care Team (Late st Contact Info) Description 01/19/2013 3:15 PM EDT Office Visit Dermatology [address] [facility] [address] [place] [address] Wiliam Lynne MD [address] [place] [address] RD, [place] [address] Verruca vulgaris (Primary Dx) Social History Tobacco [...] take a different approach and wait until [place] break when she has two weeks off [...] documented in this encounter Care Teams Director Retail Brand Development Relationship Specialty Start Date End Date Yael Munguia MD [address] [place] [address] PCP - General 05/14/11 04/20/21 documented as of this encounter
--- OUTSIDE RECORDS SUMMARY | 2024-03-16 16:51 | XMS_ITS | Encounter Summary ---
Author Organization [facility] Address [address] [place] [address] Care Team Providers Care Movie Theater Manager Name Role Phone Unknown, Provider Primary Care Provider Unava ilable Encounter Details Date Type Department Care Team (Late st Contact Info) Description 12/15/2023 Lab Requisition [facility] Pathology & Laboratory Medicine - [address] [id number] Outr Resulting Lab, Provider Social History Tobacco Use Types Packs/Day Years Used Date Smoking Tobacco: Never Smokeless Tobacco: Never Alcohol Use Standard Drinks/Week Comments Yes 0 (1 standard drink = 0.6 oz pur e alcohol) 0-1 per week Interpersonal Safety Answer Date Record ed Physically Hurt Never 11/27/2019 Verbally Threaten Not on file 11/27/2019 Comments Unknown Sex and Gender Information Value Date Recorded Sex Assigned at Not on file Legal Sex Female 8:33 EDT Gender Identity Not on file Sexual Orientation Not on file documented as of this encounter Functional Status * Because of a physical, mental, or emotional condition, does this person have difficulty doing errands alone such as visiting a doctor's office or shopping? Answer Date of Assessment Author No 08/05/2017 7:58 EDT documented as of this encounter Mental Status * Because of a physical, mental, or emotional condition, does this person have serious difficulty concentrating, remembering, or making decisions? Answer Entry Date Author No 08/05/2017 7:58 EDT documented in this encounter Plan of Treatment Not on file documented as of this encounter Procedures Procedure Name Priority Date/Time Associated Diagnosis Comments HOLD SST Today 12/15/2023 10:24 EDT HIV 1/2 ANTIGEN AND ANTIBODY, 4TH GENERATION Today 12/15/2023 10:24 EDT documented in this encounter Results * HOLD SST (12/15/2023 10:24 EDT) Hold Hold 12/15/2023 18:15 EDT [facility] Blood VENOUS BLOOD / Unknown 12/15/2023 10:24 EDT 12/15/2023 17:12 EDT us Provider Outr Resulting Lab LAB INFO SERVICE AND SUPPORT & PHONE RESULT Final Result Performing Organization Address [facility] Co de Phone Number [facility] [address] [place] [address] * HIV 1/2 ANTIGEN AND ANTIBODY, 4TH GENERATION (12/15/2023 10:24 EDT) HIV 1 and 2 Antibody/p24 Antigen, 4th Generation Negative Negative 12/15/2023 19:42 EDT [facility] Comment:If acute HIV-1 infec tion is suspected in a high risk patient, submit plasma specimen for HIV-1 RNA quantitation test. Blood VENOUS BLOOD / Unknown 12/15/2023 10:24 EDT 12/15/2023 17:12 EDT Narrative [facility] - 12/15/2023 19:42 EDT Fourth Generation assay performed on the Siemens Centaur XPT. us Provider Outr Resulting Lab IMMUNOLOGY AND SEROL OGY ORDERABLES Final Result [facility] [address] [place] [address] documented in this encounter Visit Diagnoses Not on filedocumented in this encounter Care Teams Movie Theater Manager Relationship Specialty Start Date End Date Unknown, Provider, PCP - General 11/11/18 documented as of this encounter
--- OUTSIDE RECORDS SUMMARY | 2024-03-16 16:51 | XMS_ITS | Encounter Summary ---
Author Organization [facility] [place] [address] Care Team Providers Care Mixing Operator Name Role Phone Yael Munguia MD Primary Care Provider [phone] Reason for Visit * Reason Comments Follow-up Encounter Details Date Type Department Care Team (Late st Contact Info) Description 07/20/2013 8:00 AM EDT Office Visit Dermatology at [address] [place] [phone] Wiliam Lynne MD [address], [place] [address] Verruca vulgaris (Primary Dx) Social History Tobacco [...] from the original note were not included. [facility] Plantar Warts: After Your Visit Your [...] doctor may recommend that you use an bucp-lkb-agbydud treatment. These include salicylic acid or duct [...] make walking more comfortable. ?? Take an agrk-mgm-divuofe medicine, such as acetaminophen (Tylenol), ibuprofen (Advil, [...] warts after 2 to 3 months of wkgk-qni-vhzhmll treatment. ?? Your warts are growing or spreading quickly even with treatment. Where can you learn more? Visit our [employer] information library at http://[employer] You can also view health information on [employer], your personal patient account. Log in or sign up today. Enter S429 in the search box to learn more about Plantar Warts: After Your Visit. ?? [id number] [employer]. Care instructions adapted under license by [facility]. This care instruction is for use with your licensed healthcare professional. If you have questions about a medical condition or this instruction, always ask your healthcare professional. [employer] disclaims any warranty or liability for your use of this information. Content Version: 9.9.106714; Last Revised: November 29, 2012 documented in [...] unspecified documented in this encounter Care Teams Mixing Operator Relationship Specialty Start Date End Date Yael Munguia MD [address] [place] [address] PCP - General 05/14/11 04/20/21 documented as of this encounter
--- OUTSIDE RECORDS SUMMARY | 2024-03-16 16:51 | XMS_ITS | Encounter Summary ---
Author Organization [facility] Address [address] [place] [address] Care Team Providers Care Pin Pusher Name Role Phone Kimberly Lu MD Primary Care Provider [phone] Reason for Visit * Reason Comments New Patient Visit Lesion - Left thigh Encounter Details Date Type Department Care Team (Late st Contact Info) Description 06/06/2018 8:00 EST Office Visit [facility] Dermatology 3rd [address] [address] Chris Pina MD [address] [facility], [address] [place] [phone] Rash (Primary Dx) Social History Tobacco Use Types Packs/Day Years Used Date Smoking Tobacco: Never Smokeless Tobacco: Never Alcohol Use Standard Drinks/Week Comments Yes 0 (1 standard drink = 0.6 oz pur e alcohol) 0-1 per week Comments Unknown Sex and Gender Information Value [...] 08/05/2017 7:58 EDT documented in this encounter Progress Notes * Lisa Taylor [...] resident's/fellow's note. Chris Pina MD Dermatology [facility] documented in this encounter Plan of Treatment Not on file documented as of this encounter Visit Diagnoses Diagnosis Rash- Primary Rash and other nonspecific skin eruption documented in this encounter Care Teams Pin Pusher Relationship Specialty Start Date End Date Kimberly Lu MD PCP - General 07/28/17 11/10/18 documented as of this encounter
--- OUTSIDE RECORDS SUMMARY | 2024-03-16 16:51 | XMS_ITS | Encounter Summary ---
Author Organization Health system Address [address] [place] [address] Care Team Providers Care Dirt Supervisor Name Role Phone Kimberly Lu MD Primary Care Provider [phone] Reason for Referral * Consult (3 - 10 Business Days) - Receiving Office to Obtain Authorization Specialty Diagnoses / Procedures Referred By Jocelyne lyons Referred To Contact Dermatology Diagnoses Benign skin lesion of thigh Jessica Fragoso NP Phone: tel: fax: [facility] Dermatology [address]th [address] [address] Phone: tel: fax: Referral ID Status Reason Start Date Expiration Date Visits Requested Visits Authorized [id number] Receiving Office to Obtain Authorization Specialty Services [...] EST - 06/02/2018 16:19 EST Hospital Encounter [facility] - [address] [address] Jessica Fragoso NP [address] [place] [phone] Unknown, Provider, Benign skin lesion of thigh [...] - documented in this encounter Functional Status * Because of [...] 08/05/2017 7:58 EDT documented in this encounter Discharge Instructions * Discharge Instructions* [...] photograph, that is helpful to show the paperhanger assistant. documented in this encounter Medications at Time of Discharge desogestrel-ethin yl estradiol (ENSKYCE) 0.15-0.03 mg per tablet Take [...] in this encounter ED Notes * Jessica FragosoGERALDINEP - 06/02/2018 1603 EST Images from the [...] pills, otherwise, no medications SH: Student at [employer], non-smoker FH: Noncontributory Review of Systems Constitutional: [...] of further medications. Upon departure from [facility], the patient's pain was 0 on a zero to ten scale. Any further pain treatment will be at the discretion of the provider following up with the patient based on their clinical assessment . Condition at departure from the [facility] : Stable MDM 06/02/2018 [...] tissue documented in this encounter Care Teams Dirt Supervisor Relationship Specialty Start Date End Date Kimberly Lu MD PCP - General 07/28/17 11/10/18 documented as of this encounter
--- OUTSIDE RECORDS SUMMARY | 2024-03-16 16:51 | XMS_ITS | Encounter Summary ---
[place] [address] Care Team Providers Care Daycare Director Name Role Phone Yael Munguia MD Primary Care Provider [phone] Reason for Visit * Reason Comments Follow-up Encounter Details Date Type Department Care Team (Late st Contact Info) Description 08/10/2013 8:45 AM EDT Office Visit Dermatology at [address] [place] [phone] Wiliam Lynne MD [address], [place] [address] Verruca vulgaris (Primary Dx) Social History Tobacco [...] unspecified documented in this encounter Care Teams Daycare Director Relationship Specialty Start Date End Date Yael Munguia MD [address] [address] PCP - General 05/14/11 04/20/21 documented as of this encounter
--- OUTSIDE RECORDS SUMMARY | 2024-03-16 16:51 | XMS_ITS | Encounter Summary ---
Author Organization [facility] Address [address] [place] [address] Care Team Providers Care Cabin Worker Name Role Phone Unknown, Provider Primary Care Provider Unava ilable Encounter Details Date Type Department Care Team (Late st Contact Info) Description 05/04/2022 Lab Requisition [facility] Pathology & Laboratory Medicine - [address] [phone] Outr Resulting Lab, Provider Social History Tobacco [...] EST) Hold Hold 05/04/2022 18:[address] [facility] Blood VENOUS BLOOD / Unknown 05/04/2022 11:26 EST 05/04/2022 17:01 EST us Provider Outr Resulting Lab LAB INFO SERVICE AND SUPPORT & PHONE RESULT Final Result Performing Organization Address [facility]/ZIP Co de Phone Number [facility] [address] [place] [address] * LYME AB (05/04/2022 11:26 EST) Lyme Ab Negative Negative 05/05/2022 9:[address] [facility] Blood VENOUS BLOOD / Unknown 05/04/2022 11:26 EST 05/04/2022 17:01 EST us Provider Outr Resulting Lab IMMUNOLOGY AND SEROL OGY ORDERABLES Final Result Performing Organization Address [facility] Co de Phone Number [facility] [address] [place] [address] * ANTI NUCLEAR AB (CHARMAINE), IFA (05/04/2022 11:26 EST) CHARMAINE Interpretation Negative Negative 2022 14:[address] [facility] Comment:No titer performed, CHARMAINE Screen is negative. Blood VENOUS BLOOD / Unknown 05/04/2022 11:26 EST 05/04/2022 17:[address] [facility] - 05/06/2022 14:07 EST Results were obtained with the [employer] NOVA Lite HEp-2 CHARMAINE Kit by indirect immunofluorescence. Provider Outr Resulting Lab IMMUNOLOGY AND SEROL OGY ORDERABLES Final Result Performing Organization Address [facility] de Phone Number [facility] [address] [place] [address] * CELIAC DISEASE PANEL (05/04/2022 11:26 EST) Tissue Transglutaminase Antibody IGA <1.2 <4.0 U/mL 05/07/2022 12:[address] [facility] Comment: A negative result may be due to IgA deficiency and does not rule out celiac disease. ? Negative: ??<4.0 U/mL ? Weak Positive: ??4.0 - 10.0 U/mL ? Positive: ??>10.0 U/mL Results were obtained with the [employer] Lite R h-tTG IgA MARAL assay on the [facility] DSX. IgA 205 85 - 499 mg/dL 05/07/2022 12:[address] [facility] Celiac Disease Interpretation Negative Serology. Celiac disease unlikely. Approximately 10% of patients with celiac disease are seronegative. Patients who are already adhering to a gluten-free diet may also be seronegative. If celiac disease is highly clinically suspected, referral to gastroenterology for additional evaluation is recommended. 05/07/2022 12:[address] [facility] Blood VENOUS BLOOD / Unknown 05/04/2022 11:26 EST 05/04/2022 17:01 EST us Provider Outr Resulting Lab IMMUNOLOGY AND SEROL OGY ORDERABLES Final Result Performing Organization Address [facility] Co de Phone Number [facility] [address] [place] [address] documented in this encounter Visit Diagnoses Not on filedocumented in this encounter Care Teams Cabin Worker Relationship Specialty Start Date End Date Unknown, Provider, PCP - General 11/11/18 documented as of this encounter
--- OUTSIDE RECORDS SUMMARY | 2024-03-16 16:51 | XMS_ITS | Encounter Summary ---
[place] [address] Care Team Providers Care Account Services Associate Name Role Phone Yael Munguia MD Primary Care Provider [phone] Reason for Visit * Reason Comments Follow-up Encounter Details Date Type Department Care Team (Late st Contact Info) Description 10/21/2012 4:45 PM EDT Office Visit Dermatology [facility] [address] [place] [address] Wiliam Lynne MD [address] [place] [address] RD, [place] [address] Verruca vulgaris (Primary Dx) Social History Tobacco [...] unspecified documented in this encounter Care Teams Account Services Associate Relationship Specialty Start Date End Date Yael Munguia MD [address] [place] [address] PCP - General 05/14/11 04/20/21 documented as of this encounter
--- OUTSIDE RECORDS SUMMARY | 2024-03-16 16:51 | XMS_ITS | Encounter Summary ---
Author Organization [facility] Address [address] [place] [address] Care Team Providers Care Sales And Training Specialist Name Role Phone Kimberly Lu MD Primary Care Provider [phone] Reason for Visit * Reason Comments Follow-up seen yesterday for l olena on left thigh, noticed today spreading redness, worried about infection Encounter Details Date Type Department Care Team (Latest Contact Info) Description 06/03/2018 15:45 EST - 06/03/2018 17:18 EST Hospital Encounter [facility] - [address] [address] Chiqui Carmichael PA-C [address] [place] [phone] Unknown, Provider, Skin lesion (Primary Dx) Discharge [...] 7:58 EDT documented in this encounter Discharge Diagnoses Diagnosis J98.9 Respiratory disorder, unspecified-J98.9[ICD-10-CM] documented in this encounter Discharge Instructions * Attachments The following attachments cannot be sent through Care Everywhere. * SKIN CONDITION: ANTIBIOTICS (CROATIAN) documented in this encounter Medications at Time [...] of this encounter Ordered Prescriptions Prescription Sig Dispense Quantity Refills Last Filled Start Date End Date mupirocin calcium (BACTROBAN) 2 % cream Apply [...] of further medications. Upon departure from [facility], the patient's pain was 0 on a zero to ten scale. Any further pain treatment will be at the discretion of the provider following up with the patient based on their clinical assessment . Condition at departure from the [facility] : Stable MDM 06/03/2018 [...] Result No polys seen 06/04/2018 7:23 EST [facility] Gram Smear Result No bacteria seen 06/04/2018 7:23 [facility] Result No growth 06/05/2018 9:02 [facility] Specimen of unknown material (specimen) LOWER LIMB STRUCTURE / Unknown 06/03/2018 17:20 EST 06/03/2018 17:21 EST Comment:Performed at [facility], [place], [place] us Chiqui Carmichael PA-C MICROBIOLOGY - GENERAL ORDERABLES Final Result [facility] [address] [place] [address] documented in this encounter Visit Diagnoses Diagnosis Skin lesion- Primary Unspecified disorder of skin and subcutaneous tissue documented in this encounter Care Teams Sales And Training Specialist Relationship Specialty Start Date End Date Kimberly Lu MD PCP - General 07/28/17 11/10/18 documented as of this encounter
--- OUTSIDE RECORDS SUMMARY | 2024-03-16 16:51 | XMS_ITS | Encounter Summary ---
Author Organization [facility] Address [address] [place] [address] Care Team Providers Care Production Operations Inspector Name Role Phone Unknown, Provider Primary Care Provider Unava ilable Encounter Details Date Type Department Care Team (Late st Contact Info) Description 09/18/2022 Lab Requisition [facility] Pathology & Laboratory Medicine - [facility] [address] [place] [address] Lucretia Irwin, DO [address] [place] [address] Other constipation; Chronic anal fissure Social History [...] explore management options, if applicable. 09/23/2022 12:29 [facility] Final Diagnosis A. COLON, CECUM, [...] proctitis. - Negative for dysplasia. 09/23/2022 12:29 [facility] Diagnosis Comment Focal active colitis may be nonspecific but may also be associated with infectious colitis, acute ischemic colitis, irritable bowel syndrome or drug effect (e.g. NSAIDS, colonoscopy preparation solution). It may also be seen in early onset Crohn's disease. Clinical correlation is recommended. Reaming Machine Operator slides of this case were reviewed at the intradepartmental consultation conference. 09/23/2022 12:29 [facility] Attestation By the signature below, the attending physician certifies that they have 1) personally conducted a gross and/or microscopic examination of the described specimen(s), and/or personally interpreted the results of laboratory testing of the described specimen(s), and 2) personally rendered or confirmed the above diagnosis. 09/23/2022 12:29 [facility] at [address]29 Clinical History IBS, chronic anal fissure, rectal hemorrhage 09/23/2022 12:29 EDT [facility] Gross Description A. [...] JOE RAZO(ASCP) 09/19/2022 10:41 09/23/2022 12:29 EDT [facility] Performing Lab [facility] 09/23/2022 12:29 T [facility] Scanned Images 09/23/2022 12:29 EDT [facility] Tissue SPECIMEN FROM [...] Unknown 09/18/2022 8:35 EDT 09/18/2022 19:29 EDT us Lucretia Irwin DO PATHOLOGY ORDERABLES Final Re sult [facility] [address] [place] [address] documented in this encounter Visit Diagnoses Diagnosis Other constipation Chronic anal fissure Anal fissure documented in this encounter Care Teams Production Operations Inspector Relationship Specialty Start Date End Date Unknown, Provider, PCP - General 11/11/18 documented as of this encounter
--- OUTSIDE RECORDS SUMMARY | 2024-03-16 16:51 | XMS_ITS | Encounter Summary ---
[place] [address] Care Team Providers Care Beverage Steward Name Role Phone Yael Munguia MD Primary Care Provider [phone] Reason for Visit * Reason Comments Follow-up Encounter Details Date Type Department Care Team (Late st Contact Info) Description 04/14/2013 3:45 PM EST Office Visit Dermatology at [address] [place] [phone] Wiliam Lynne MD [address] [facility], [place] [address] Verruca vulgaris (Primary Dx) Social History Tobacco [...] unspecified documented in this encounter Care Teams Beverage Steward Relationship Specialty Start Date End Date Yael Munguia MD [address] [place] [address] PCP - General 05/14/11 04/20/21 documented as of this encounter
--- OUTSIDE RECORDS SUMMARY | 2024-03-16 16:51 | XMS_ITS | Encounter Summary ---
Author Organization [facility] Address [address] [place] [address] Care Team Providers Care Diorama Model Maker Name Role Phone Kimberly Lu MD Primary Care Provider [phone]- [phone] Encounter Details Date Type Department Care Team (Late st Contact Info) Description 07/15/2018 10:40 EDT - 07/15/2018 10:42 EDT Hospital Encounter [address] [id number] [place] [address] Olamide Gordon, DNP [address] [place] [phone] Discharge Disposition: Home or Self Care Social [...] documented in this encounter Discharge Diagnoses Diagnosis B37.3 Candidiasis [...] on filedocumented in this encounter Care Teams Diorama Model Maker Relationship Specialty Start Date End Date Kimberly Lu MD PCP - General 07/28/17 11/10/18 documented as of this encounter
--- OUTSIDE RECORDS SUMMARY | 2024-03-16 16:51 | XMS_ITS | Encounter Summary ---
Author Organization [facility] Address [address] [place] [address] Care Team Providers Care Nurse Instructor Name Role Phone Kimberly Lu MD Primary Care Provider [phone] Encounter Details Date Type Department Care Team ([facility] st Contact Info) Description 08/02/2018 15:04 EDT - 08/02/2018 23:59 EDT Hospital Encounter [address] [address] Olamide Gordon, [facility] [address] [place] [phone] Discharge Disposition: Home or Self Care Social [...] documented in this encounter Discharge Diagnoses Diagnosis B00.1 Herpesviral [...] on filedocumented in this encounter Care Teams Nurse Instructor Relationship Specialty Start Date End Date Kimberly Lu MD PCP - General 07/28/17 11/10/18 documented as of this encounter
--- OUTSIDE RECORDS SUMMARY | 2024-03-16 16:51 | XMS_ITS | Encounter Summary ---
Author Organization [facility] Address [address] [place] [address] Care Team Providers Care Radiological Metallurgist Name Role Phone Unknown, Provider Primary Care Provider Unava ilable Encounter Details Date Type Department Care Team (Late st Contact Info) Description 12/15/2023 Lab Requisition [facility] Pathology & Laboratory Medicine - [address] [id number] Outr Resulting Lab, Provider Social History Tobacco [...] Procedure Name Priority Date/Time Associated Diagnosis Comments RUBELLA IGG ANTIBODY Routine 12/15/2023 10:24 EDT VARICELLA IGG ANTIBODY Routine 12/15/2023 10:24 EDT documented in this encounter Results * VARICELLA IGG ANTIBODY (12/15/2023 10:24 EDT) Varicella IgG Ab Positive See Note 12/16/2023 9:47 EDT [facility] Comment:Presence of detectab le Varicella Zoster virus IgG antibodies. Blood VENOUS BLOOD / Unknown 12/15/2023 10:24 EDT 12/15/2023 17:08 EDT us Provider Outr Resulting Lab IMMUNOLOGY AND SEROL OGY ORDERABLES Final Result Performing Organization Address City/[facility]/ZIP Co de Phone Number [facility] [address] [place] [address] * RUBELLA IGG ANTIBODY (12/15/2023 10:24 EDT) Rubella IgG Ab Positive See Note 12/16/2023 9:56 EDT [facility] Comment:Positive for IgG ant ibodies to Rubella virus. Blood VENOUS BLOOD / Unknown 12/15/2023 10:24 EDT 12/15/2023 17:08 EDT us Provider Outr Resulting Lab CHEMISTRY & BLOOD GA S ORDERABLES Final Result Performing Organization Address City/[facility]/ZIP Co de Phone Number [facility] [address] [place] [address] documented in this encounter Visit Diagnoses Not on filedocumented in this encounter Care Teams Radiological Metallurgist Relationship Specialty Start Date End Date Unknown, Provider, PCP - General 11/11/18 documented as of this encounter
--- OUTSIDE RECORDS SUMMARY | 2024-03-16 16:51 | XMS_ITS | Encounter Summary ---
Author Organization [place] [id number] Care Team Providers Care Senior Designer/Art Director Name Role Phone Yael Munguia MD Primary Care Provider [phone] Reason for Visit * Reason Comments Skin Lesion * Consultation (Routine) - Specialty Diagnoses / Procedures Referred By Contjacinto lyons Referred To Contact Dermatology Diagnoses Melanocytic nevi of right upper limb, including shoulder Atypicla nevus of Rt Upper Arm Procedures Atypical nevus of Rt upper arm Yael Munguia MD [address] [place] [address] [place] [address] Wiliam Lynne MD [address] [place] [address], [facility] [place] [address] Referral ID Status Reason Start Date Expiration Date V isits Requested Visits Authorized [id number] Consult, Test & Treat PCP Updated and/or Approved 11/26/2016 11/26/2017 6 6 Encounter Details Date Type Department Care Team (Late st Contact Info) Description 04/22/2017 10:45 AM EST Office Visit Dermatology at [address] [address] Wiliam Lynne MD [address] [place] [address], [facility] [place] [address] Nevus Social History Tobacco Use [...] After a semester at a college in [place] she is now planning to switch and spend the next semester as her second half of her freshman year at [employer]. She is here today with her [...] unspecified documented in this encounter Care Teams Senior Designer/Art Director Relationship Specialty Start Date End Date Yael Munguia MD [address] [place] [address] [place] [address] PCP - General 05/14/11 04/20/21 documented as of this encounter
--- OUTSIDE RECORDS SUMMARY | 2024-03-16 16:51 | XMS_ITS | Encounter Summary ---
Author Organization [facility] Address [address] [place] [address] Care Team Providers Care Brusher Operator Name Role Phone Kimberly Lu MD Primary Care Provider [phone] Encounter Details Date Type Department Care Team (Late st Contact Info) Description 08/02/2018 Results Only [facility] [phone] Olamide Gordon, [facility] [address] [place] [address] Social History Tobacco Use Types [...] EDT) Specimen Description Lip 08/02/2018 13:43 EDT [facility] HSV1 DNA Result POSITIVE(AA) 019 11:10 EDT [facility] HSV2 DNA Result Negative 9 11:10 EDT [facility] TOPOGRAPHY UNKNOWN / Unknown 08/02/2018 11:00 EDT 08/02/2018 13:43 EDT us Olamide Gordon DNP MICROBIOLOGY - GENERAL ORDERAB LES Final Result [facility] [address] [place] [address] documented in this encounter Visit Diagnoses Not on filedocumented in this encounter Care Teams Brusher Operator Relationship Specialty Start Date End Date Kimberly Lu MD PCP - General 07/28/17 11/10/18 documented as of this encounter
--- OUTSIDE RECORDS SUMMARY | 2024-03-16 16:51 | XMS_ITS | Clinical Summary ---
Author Organization [facility] Address [address] [place] [address] Care Team Providers Care Shipyard Painting Supervisor Name Role Phone Unknown, Provider Primary Care Provider Unava ilable Allergies Active Allergy Reactions Criticality Noted Date Comments Amoxicillin Diarrhea 08/05/2017 Medications ranitidine (ZANTAC) 150 mg tablet Take 150 mg by mouth 2 times daily as needed for Heartburn. Active desogestrel-eth inyl estradiol (ENSKYCE) 0.15-0.03 mg per tablet Take 1 Tab by mouth daily. Active Multivitamins with Minerals tablet tablet Take 1 Tab by mouth daily. Active mupirocin calcium (BACTROBAN) 2 % cream Apply a small amount to affected skin BID-TID 30 g 9 Active Additional Information Patient not taking.Reported on 06/06/2018 Active Problems No known active problems Encounters Date Type Department Care Team Description 12/15/2023 Lab Requisition [facility] Pathology & Laboratory [address] [address] Outr Resulting Lab, Provider 12/15/2023 Lab Requisition [facility] Pathology & Laboratory [address] [address] Outr Resulting Lab, Provider 12/15/2023 Lab Requisition [facility] Pathology & Laboratory [address] [address] Outr Resulting Lab, Provider 12/15/2023 Lab Requisition [facility] Pathology & Laboratory [address] [address] Outr Resulting Lab, Provider from Last 3 [...] Maintenance Due Date Last Done Comments Hepatitis B Vaccine (1 of 3 - 19+ 3-dose series) 11/22 COVID-19 Vaccine ( season) 2023 Hepatitis C Screen Completed 12/15/2023 Procedures Procedure Name Priority Date/Time Associated Diagnosis Comments HOLD SST Today 12/15/2023 10:24 EDT HEPATITIS B SURFACE ANTIGEN Routine 12/15/2023 10:24 EDT HEPATITIS C AB W REFLEX TO HCV RNA BY PCR Routine 12/15/2023 10:24 EDT VARICELLA IGG ANTIBODY Routine 12/15/2023 10:24 EDT RUBELLA IGG ANTIBODY Routine 12/15/2023 10:24 EDT HIV 1/2 ANTIGEN AND ANTIBODY, 4TH GENERATION Today 12/15/2023 10:24 EDT CHLAMYDIA/N. GONORRHOEAE AMPLIFIED NUCLEIC ACID Routine 12/15/2023 8:55 EDT from Last 3 Months Results * HOLD SST (12/15/2023 10:24 EDT) Hold Hold 12/15/2023 18:15 EDT [facility] Blood VENOUS BLOOD / Unknown 12/15/2023 10:24 EDT 12/15/2023 17:12 EDT us Provider Outr Resulting Lab LAB INFO SERVICE AND SUPPORT & PHONE RESULT Final Result Performing Organization Address [facility] Co de Phone Number [facility] [address] [place] [address] * HEPATITIS C AB W REFLEX TO HCV RNA BY PCR (12/15/2023 10:24 EDT) Pathologist [facility] Hep C Antibody Negative Negative 12/15/2023 19:28 EDT [facility] Blood VENOUS BLOOD / Unknown 12/15/2023 10:24 EDT 12/15/2023 17:27 EDT us Provider Outr Resulting Lab CHEMISTRY & BLOOD GA S ORDERABLES Final Result Performing Organization Address [facility] Co de Phone Number [facility] [address] [place] [address] * RUBELLA IGG ANTIBODY (12/15/2023 10:24 EDT) Pathologist [facility] Rubella IgG Ab Positive See Note 12/16/2023 9:56 EDT [facility] Comment:Positive for IgG ant ibodies to Rubella virus. Blood VENOUS BLOOD / Unknown 12/15/2023 10:24 EDT 12/15/2023 17:08 EDT us Provider Outr Resulting Lab CHEMISTRY & BLOOD GA S ORDERABLES Final Result Performing Organization Address [facility]/ZIP Co de Phone Number [facility] [address] [place] [address] * HEPATITIS B SURFACE ANTIGEN (12/15/2023 10:24 EDT) Hep B Surface Ag Negative Negative 12/15/2023 18:49 EDT [facility] Blood VENOUS BLOOD / Unknown 12/15/2023 10:24 EDT 12/15/2023 17:27 EDT us Provider Outr Resulting Lab CHEMISTRY & BLOOD GA S ORDERABLES Final Result Performing Organization Address [facility] Co de Phone Number [facility] [address] [place] [phone] * VARICELLA IGG ANTIBODY (12/15/2023 10:24 EDT) Varicella IgG Ab Positive See Note 12/16/2023 9:47 EDT [facility] Comment:Presence of detectab le Varicella Zoster virus IgG antibodies. Blood VENOUS BLOOD / Unknown 12/15/2023 10:24 EDT 12/15/2023 17:08 EDT us Provider Outr Resulting Lab IMMUNOLOGY AND SEROL OGY ORDERABLES Final Result Performing Organization Address [facility]/ZIP Co de Phone Number [facility] [address] [place] [phone] * HIV 1/2 ANTIGEN AND ANTIBODY, 4TH GENERATION (12/15/2023 10:24 EDT) HIV 1 and 2 Antibody/p24 Antigen, 4th Generation Negative Negative 12/15/2023 19:42 EDT [facility] Comment:If acute HIV-1 infec tion is suspected in a high risk patient, submit plasma specimen for HIV-1 RNA quantitation test. Blood VENOUS BLOOD / Unknown 12/15/2023 10:24 EDT 12/15/2023 17:12 EDT Narrative [facility] - 12/15/2023 19:42 EDT Fourth Generation assay performed on the Siemens Centaur XPT. us Provider Outr Resulting Lab IMMUNOLOGY AND SEROL OGY ORDERABLES Final Result [facility] [address] [place] [address] * CHLAMYDIA/N. GONORRHOEAE AMPLIFIED NUCLEIC ACID (12/15/2023 8:55 EDT) Neisseria gonorrhoeae Result Negative Negative 12/16/2023 12:39 EDT [facility] Chlamydia trachomatis Result Negative Negative 12/16/2023 12:39 EDT [facility] Swab VAGINAL STRUCTURE / Unknown 12/15/2023 8:55 EDT 12/15/2023 21:34 EDT us Provider Outr Resulting Lab MICROBIOLOGY - GENER AL ORDERABLES Final Result Performing Organization Address City/[facility]/ZIP Co de Phone Number [facility] [address] [place] [phone] from Last 3 Months Insurance Care Teams Shipyard Painting Supervisor Relationship Specialty Start Date End Date Unknown, Provider, PCP - General 11/11/18
--- OUTSIDE RECORDS SUMMARY | 2024-03-16 16:51 | XMS_ITS | Encounter Summary ---
Author Organization [facility] Address [address] [place] [address] Care Team Providers Care Hat Blocker Name Role Phone Unknown, Provider Primary Care Provider Unava ilable Encounter Details Date Type Department Care Team (Late st Contact Info) Description 12/15/2023 Lab Requisition [facility] Pathology & Laboratory Medicine - [address] [id number] Outr Resulting Lab, Provider Social History Tobacco [...] Comments CHLAMYDIA/N. GONORRHOEAE AMPLIFIED NUCLEIC ACID Routine 12/15/2023 8:55 EDT documented in this encounter Results * CHLAMYDIA/N. GONORRHOEAE AMPLIFIED NUCLEIC ACID (12/15/2023 8:55 EDT) Neisseria gonorrhoeae Result Negative Negative 12/16/2023 12:39 EDT [facility] Chlamydia trachomatis Result Negative Negative 12/16/2023 12:39 EDT [facility] Swab VAGINAL STRUCTURE / Unknown 12/15/2023 8:55 EDT 12/15/2023 21:34 EDT us Provider Outr Resulting Lab MICROBIOLOGY - GENER AL ORDERABLES Final Result [facility] [address] [place], [place] [address] documented in this encounter Visit Diagnoses Not on filedocumented in this encounter Care Teams Hat Blocker Relationship Specialty Start Date End Date Unknown, Provider, PCP - General 11/11/18 documented as of this encounter
--- OUTSIDE RECORDS SUMMARY | 2024-03-16 16:51 | XMS_ITS | Encounter Summary ---
[place] [address] Care Team Providers Care Automation Controls Engineer Name Role Phone Yael Munguia MD Primary Care Provider [phone] Reason for Visit * Reason Comments Verrucous Vulgaris Encounter Details Date Type Department Care Team (Late st Contact Info) Description 06/25/2011 11:15 AM EST Office Visit Dermatology [address] [facility] [address] [place] [address] Wiliam Lynne MD [address] [place] [address] RD, [place] [address] Verruca vulgaris (Primary Dx) Social History Tobacco [...] unspecified documented in this encounter Care Teams Automation Controls Engineer Relationship Specialty Start Date End Date Yael Munguia MD [address] [place] [address] PCP - General 05/14/11 04/20/21 documented as of this encounter
--- OUTSIDE RECORDS SUMMARY | 2024-03-16 16:51 | XMS_ITS | Encounter Summary ---
Author Organization [facility] Address [address] [facility] [place] [address] Care Team Providers Care Campaign Specialist Name Role Phone Austyn James APRN Primary Care Provider [phone] Reason for Referral * Diagnostic Test (Routine) - Closed Specialty Diagnoses / Procedures Referred By Pemaac t Referred To Contact Radiology Diagnoses Tear of left acetabular labrum, initial encounter Procedures XR Fluoro Arthrogram Injection Hip Left Lucio Maldonado MD [address] [place] [address] [facility] [address] [place] [address] [place] [id number] Referral ID Status Reason Start Date Expiration Date V isits Requested Visits Authorized [id number] Closed Specialty Service Requested 04/04/2021 04/30/2021 1 1 Reason for Visit * Diagnostic Test (Routine) - Closed Specialty Diagnoses / Procedures Referred By Contac t Referred To Contact Radiology Diagnoses Tear of left acetabular labrum, initial encounter Procedures XR Fluoro Arthrogram Injection Hip Left Lucio Maldonado MD [address] [place] [address] [facility] [address] [place] [address] [place] [address] Referral ID Status Reason Start Date Expiration Date V isits Requested Visits Authorized [id number] Closed Specialty Service Requested 04/04/2021 04/30/2021 1 1 Encounter Details Date Type Department Care Team (Latest Contact Info) Description 04/21/2021 9:26 AM EST - 04/21/2021 11:59 PM EST Hospital Encounter XRay at [address] [place] [address] Lucio Maldonado MD [address] [place] [address] Tear of left acetabular labrum, initial encounter [...] telephone the diagnostic section of radiology at [phone]. documented in this encounter Medications at Time [...] who have questions please contact the health emergency care attendant that requested your imaging first. ? Electronically signed by: Gege Bowers MD, [facility] ([phone]), at 06/30/2021 8:55 AM --------ORIGINAL REPORT -------- [...] electronic medical record and allergies, as per [facility] protocol. The patient was positioned supine on [...] who have questions please contact the health emergency care attendant that requested your imaging first. ? Electronically signed by: JOE Méndez, [facility] ([phone]), at 04/21/2021 11:00 AM Impressions 04/21/2021 11:00 AM EST Uneventful arthrogram of left hip joint Resident/Fellow: None Attending: None Thank you for letting us participate in the care of this patient. ??If you are a health care provider and have any questions regarding this report, please contact the number below. ??For patients who have questions please contact the health emergency care attendant that requested your imaging first. ? Electronically signed by: JOE Méndez, [facility] ([phone]), at 04/21/2021 11:00 AM Narrative 04/21/2021 11:00 [...] electronic medical record and allergies, as per [facility] protocol. The patient was positioned supine on [...] relevant electronic medicalrecord and allergies, as per [facility] protocol. The patient was positioned supine on [...] patients who have questions please contactthe health emergency care attendant that requested your imaging first. Lucio Maldonado [...] mLs documented in this encounter Care Teams Campaign Specialist Relationship Specialty Start Date End Date Austyn James APRN [address] [place] [address] PCP - General Family Medicine 04/21/21 documented as of this encounter
--- OUTSIDE RECORDS SUMMARY | 2024-03-16 16:51 | XMS_ITS | Encounter Summary ---
Author Organization [facility] Address [address] [place] [address] Care Team Providers Care Chief Deputy Name Role Phone Unknown, Provider Primary Care Provider Unava ilable Encounter Details Date Type Department Care Team (Late st Contact Info) Description 10/01/2020 Lab Requisition [facility] Pathology & Laboratory Medicine - [address] [address] Heather Barton, TERRITORY SALES MANAGER [address] [place] [address] Encounter for other general examination [...] System with Manual Evaluation 10/11/2020 14:09 EDT [facility] Specimen Adequacy Satisfactory for Evaluation - transformation zone component present 10/11/2020 14:09 EDT [facility] General Categorization Negative for intraepithelial lesion or malignancy 10/11/2020 14:09 EDT [facility] Attestation . 10/11/2020 14:09 EDT [facility] at 1409 Clinical History See below 10/12/19 14:09 EDT [facility] Performing Lab [facility] 10/11/2020 14:09 EDT [facility] Scanned Images 10/11/2020 14:09 EDT [facility] Papanicolaou smear specimen (specimen) CERVIX UTERI STRUCTURE / Unknown 10/01/2020 9:30 EDT 10/02/2020 15:21 EDT us Heather Barton TERRITORY SALES MANAGER PATHOLOGY ORDERABLES Mayda l Result [facility] [address] [place] [address] * CHLAMYDIA/N. GONORRHOEAE AMPLIFIED RNA, THINPREP (10/01/2020 9:30 EDT) Neisseria gonorrhoeae Result Negative Negative 10/02/2020 16:27 EDT [facility] Chlamydia trachomatis Result Negative Negative 10/02/2020 16:27 EDT [facility] Papanicolaou smear specimen (specimen) CERVIX UTERI STRUCTURE / Unknown 10/01/2020 9:30 EDT 10/02/2020 8:05 EDT us Heather Barton TERRITORY SALES MANAGER MICROBIOLOGY - GENERAL OR DERABLES Final Result [facility] [address] [place] [address] documented in this encounter Visit Diagnoses Diagnosis Encounter for other general examination documented in this encounter Care Teams Chief Deputy Relationship Specialty Start Date End Date Unknown, Provider, PCP - General 11/11/18 documented as of this encounter
--- OUTSIDE RECORDS SUMMARY | 2024-03-16 16:51 | XMS_ITS | Encounter Summary ---
Author Organization [facility] Address [facility] [place] [address] Care Team Providers Care Manifest Clerk Name Role Phone Yael Munguia MD Primary Care Provider [phone] Encounter Details Date Type Department Care Team (Late st Contact Info) Description 04/03/2021 Orders Only XRay at [address] [place] [address] Binta Girard, RN [facility] DR ASH[place] [address] Social History Tobacco Use Types Packs/Day Years [...] on filedocumented in this encounter Care Teams Manifest Clerk Relationship Specialty Start Date End Date Yael Munguia MD [address] [place] [address] [place] [address] PCP - General 05/14/11 04/20/21 documented as of this encounter
--- OUTSIDE RECORDS SUMMARY | 2024-03-16 16:51 | XMS_ITS | Encounter Summary ---
Author Organization [facility] Address [address] [place] [address] Care Team Providers Care [facility] Attendant Name Role Phone Unknown, Provider Primary Care Provider Unava ilable Encounter Details Date Type Department Care Team (Latest Contact Info) Description 12/23/2018 16:49 EDT - 12/23/2018 17:23 EDT Hospital Encounter [place] [address] [place] [address] Kimberly Gallegos MD [address] [place] [place] [phone] Discharge Disposition: Home or Self Care [...] documented in this encounter Discharge Diagnoses Diagnosis R30.0 Dysuria-R30.0[ICD-10-CM] [...] on filedocumented in this encounter Care Teams [facility] Attendant Relationship Specialty Start Date End Date Unknown, Provider, PCP - General 11/11/18 documented as of this encounter
--- OUTSIDE RECORDS SUMMARY | 2024-03-16 16:51 | XMS_ITS | Referral Summary ---
Author Organization [facility] Address [address] [place] [address] Care Team Providers Care Canvas Cutter Machine Name Role Phone Unknown, Provider Primary Care Provider Unapablo ilable Encounters Date Type Department Care Team Description 12/15/2023 Lab Requisition [facility] Pathology & Laboratory [address] [address] Outr Resulting Lab, Provider 12/15/2023 Lab Requisition [facility] Pathology Laboratory [address] [address] Outr Resulting Lab, Provider 12/15/2023 Lab Requisition [facility] Pathology & Laboratory [address] [address] Outr Resulting Lab, Provider 12/15/2023 Lab Requisition [facility] Pathology Laboratory [address] [address] Outr Resulting Lab, Provider from Last 3 [...] Index 20.53 08/05/2017 0757 EDT Functional Status * Because of a physical, mental, or emotional condition, does this person have difficulty doing errands alone such as visiting a doctor's office or shopping? Answer Date of Assessment Author No 08/05/2017 7:58 EDT Mental Status * Because of a physical, mental, or emotional condition, does this person have serious difficulty concentrating, remembering, or making decisions? Answer Entry Date Author No 08/05/2017 7:58 EDT Plan of Treatment Not on file Procedures Procedure Name Priority Date/Time Associated Diagnosis [...] 10:24 EDT) Hold Hold 12/15/2023 18:15 EDT [facility] Blood VENOUS BLOOD / Unknown 12/15/2023 10:24 EDT 12/15/2023 17:12 EDT us Provider Outr Resulting Lab LAB INFO SERVICE AND SUPPORT & PHONE RESULT Final Result Performing Organization Address [facility] Co de Phone Number [facility] [address] [place] [address] * HEPATITIS C AB W REFLEX TO HCV RNA BY PCR (12/15/2023 10:24 EDT) Hep C Antibody Negative Negative 12/15/2023 19:28 EDT [facility] Blood VENOUS BLOOD / Unknown 12/15/2023 10:24 EDT 12/15/2023 17:27 EDT us Provider Outr Resulting Lab CHEMISTRY & BLOOD GA S ORDERABLES Final Result Performing Organization Address [facility]/ZIP Co de Phone Number [facility] [address] [place] [address] * RUBELLA IGG ANTIBODY (12/15/2023 10:24 EDT) Rubella IgG Ab Positive See Note 12/16/2023 9:56 EDT [facility] Comment:Positive for IgG ant ibodies to Rubella virus. Blood VENOUS BLOOD / Unknown 12/15/2023 10:24 EDT 12/15/2023 17:08 EDT us Provider Outr Resulting Lab CHEMISTRY & BLOOD GA S ORDERABLES Final Result Performing Organization Address [facility]/ZIP Co de Phone Number [facility] [address] [place] [address] * HEPATITIS B SURFACE ANTIGEN (12/15/2023 10:24 EDT) Hep B Surface Ag Negative Negative 12/15/2023 18:49 EDT [facility] Blood VENOUS BLOOD / Unknown 12/15/2023 10:24 EDT 12/15/2023 17:27 EDT us Provider Outr Resulting Lab CHEMISTRY & BLOOD GA S ORDERABLES Final Result Performing Organization Address [facility] Co de Phone Number [facility] [address] [place] [address] * VARICELLA IGG ANTIBODY (12/15/2023 10:24 EDT) Varicella IgG Ab Positive See Note 12/16/2023 9:47 EDT [facility] Comment:Presence of detectab le Varicella Zoster virus IgG antibodies. Blood VENOUS BLOOD / Unknown 12/15/2023 10:24 EDT 12/15/2023 17:08 EDT us Provider Outr Resulting Lab IMMUNOLOGY AND SEROL OGY ORDERABLES Final Result Performing Organization Address [facility] Co de Phone Number [facility] [address] [place] [address] * HIV 1/2 ANTIGEN AND ANTIBODY, 4TH GENERATION (12/15/2023 10:24 EDT) HIV 1 and 2 Antibody/p24 Antigen, 4th Generation Negative Negative 12/15/2023 19:42 EDT [facility] Comment:If acute HIV-1 infec tion is suspected in a high risk patient, submit plasma specimen for HIV-1 RNA quantitation test. Blood VENOUS BLOOD / Unknown 12/15/2023 10:24 EDT 12/15/2023 17:12 EDT Narrative [facility] - 12/15/2023 19:42 EDT Fourth Generation assay performed on the Siemens Centaur XPT. us Provider Outr Resulting Lab IMMUNOLOGY AND SEROL OGY ORDERABLES Final Result Performing Organization Address City/[facility]/ZIP Co de Phone Number [facility] [address] [place] [address] * CHLAMYDIA/N. GONORRHOEAE AMPLIFIED NUCLEIC ACID (12/15/2023 8:55 EDT) Neisseria gonorrhoeae Result Negative Negative 12/16/2023 12:39 EDT [facility] Chlamydia trachomatis Result Negative Negative 12/16/2023 12:39 EDT [facility] Swab VAGINAL STRUCTURE / Unknown 12/15/2023 8:55 EDT 12/15/2023 21:34 EDT us Provider Outr Resulting Lab MICROBIOLOGY - GENER AL ORDERABLES Final Result Performing Organization Address City/[facility]/ZIP Co de Phone Number [facility] [address] [place] [address] from Last 3 Months Insurance Care Teams Canvas Cutter Machine Relationship Specialty Start Date End Date Unknown, Provider, PCP - General 11/11/18
--- OUTSIDE RECORDS SUMMARY | 2024-03-16 16:51 | XMS_ITS | Encounter Summary ---
[place] [address] Care Team Providers Care Photolith Operator Name Role Phone Yael Munguia MD Primary Care Provider [phone] Reason for Visit * Reason Comments Follow-up Encounter Details Date Type Department Care Team (Late st Contact Info) Description 09/05/2013 4:00 PM EDT Office Visit Dermatology at [address] [place] [phone] Wiliam Lynne MD [address], [place] [address] Verruca vulgaris (Primary Dx) Social History Tobacco [...] from the original note were not included. [facility] Plantar Warts: After Your Visit Your Care [...] doctor may recommend that you use an ygtc-eln-mkamfhm treatment. These include salicylic acid or duct [...] make walking more comfortable. ?? Take an xywr-qyo-bjivlgw medicine, such as acetaminophen (Tylenol), ibuprofen (Advil, [...] warts after 2 to 3 months of eyie-zyn-fawozdu treatment. ?? Your warts are growing or spreading quickly even with treatment. Where can you learn more? Visit our [employer] information library at [email or web address] You can also view health information on [employer], your personal patient account. Log in or sign up today. Enter S429 in the search box to learn more about Plantar Warts: After Your Visit. ?? [phone] [employer]. Care instructions adapted under license by [facility]. This care instruction is for use with your licensed healthcare professional. If you have questions about a medical condition or this instruction, always ask your healthcare professional. [employer] disclaims any warranty or liability for your use of this information. Content Version: 9.9.301184; Last Revised: November 29, 2012 documented in [...] unspecified documented in this encounter Care Teams Photolith Operator Relationship Specialty Start Date End Date Yael Munguia MD [address] [place] [address] PCP - General 05/14/11 04/20/21 documented as of this encounter
--- OUTSIDE RECORDS SUMMARY | 2024-03-16 16:51 | XMS_ITS | Encounter Summary ---
Author Organization [facility] Address [address] [place] [address] Care Team Providers Care Saw Tailer Name Role Phone Unknown, Provider Primary Care Provider Unava ilable Encounter Details Date Type Department Care Team (Late st Contact Info) Description 12/23/2018 Results Only [facility]- [facility] [phone] Kimberly Gallegos MD [address] [place] [address] Social History Tobacco Use Types [...] * BACTERIAL CULTURE, URINE (12/23/2018 18:39 EDT) Result 10,000 to 100,000 CFU/ml CITROBACTER KOSERI 12/25/2018 9:31 EDT [facility] Result Less than 10,000 CFU/ml Usual urogenital arlette. 12/25/2018 9:31 EDT [facility] URINE / Unknown 12/23/2018 [...] this organism regardless of in vitro susceptibility. us Kimberly Gallegos MD MICROBIOLOGY - GENERAL ORDER LILY Final Result [facility] [address] [place] [address] documented in this encounter Visit Diagnoses Not on filedocumented in this encounter Care Teams Saw Tailer Relationship Specialty Start Date End Date Unknown, Provider, PCP - General 11/11/18 documented as of this encounter
--- OUTSIDE RECORDS SUMMARY | 2024-03-16 16:51 | XMS_ITS | Encounter Summary ---
[place] [address] Care Team Providers Care Utility Engineer Name Role Phone Yael Munguia MD Primary Care Provider [phone] Reason for Visit * Reason Comments Follow-up Encounter Details Date Type Department Care Team (Late st Contact Info) Description 05/02/2013 9:00 AM EST Office Visit Dermatology at [address] [place] [phone] Wiliam Lynne MD [address] [place] [address], [place] [address] Verruca vulgaris (Primary Dx) Social History Tobacco [...] unspecified documented in this encounter Care Teams Utility Engineer Relationship Specialty Start Date End Date Yael Munguia MD [address] [place] [address] PCP - General 05/14/11 04/20/21 documented as of this encounter
--- OUTSIDE RECORDS SUMMARY | 2024-03-16 16:51 | XMS_ITS | Clinical Summary ---
Author Organization [facility] [place] [address] Care Team Providers Care Garment Sewer Hand Name Role Phone Jacob Austyn Montes APRN Primary Care Provider [phone] Allergies Active Allergy Reactions Criticality Noted Date [...] Hepatitis B vaccine (0-59 yrs) (1) 2017 Tetanus/Diphtheria/Pertussis Vaccines (1 - Tdap) 11/22 PAP Smear 11/23/2019 Covid-19 Vaccine (1 - 2023- season) 2023 Influenza (Flu) vaccine (1 o f 1 - Influenza standard series) 12/26/2023 Care Teams Garment Sewer Hand Relationship Specialty Start Date End Date Austyn James APRN [address] [place], [place] [phone] PCP - General Family Medicine 04/21/21
--- OUTSIDE RECORDS SUMMARY | 2024-03-16 16:51 | XMS_ITS | Encounter Summary ---
Author Organization [facility] Address [address] [place] [address] Care Team Providers Care Tile Installer Name Role Phone Unknown, Provider Primary Care Provider Unava ilable Encounter Details Date Type Department Care Team (Late st Contact Info) Description 12/15/2023 Lab Requisition [facility] Pathology & Laboratory Medicine - [address] [address] Outr Resulting Lab, Provider Social History Tobacco [...] Procedure Name Priority Date/Time Associated Diagnosis Comments HEPATITIS C AB W REFLEX TO HCV RNA BY PCR Routine 12/15/2023 10:24 EDT HEPATITIS B SURFACE ANTIGEN Routine 12/15/2023 10:24 EDT documented in this encounter Results * HEPATITIS B SURFACE ANTIGEN (12/15/2023 10:24 EDT) Hep B Surface Ag Negative Negative 12/15/2023 18:49 EDT [facility] Blood VENOUS BLOOD / Unknown 12/15/2023 10:24 EDT 12/15/2023 17:27 EDT us Provider Outr Resulting Lab CHEMISTRY & BLOOD GA S ORDERABLES Final Result Performing Organization Address City/[facility]/ZIP Co de Phone Number [facility] [address] [place] [address] * HEPATITIS C AB W REFLEX TO HCV RNA BY PCR (12/15/2023 10:24 EDT) Hep C Antibody Negative Negative 12/15/2023 19:28 EDT [facility] Blood VENOUS BLOOD / Unknown 12/15/2023 10:24 EDT 12/15/2023 17:27 EDT us Provider Outr Resulting Lab CHEMISTRY & BLOOD GA S ORDERABLES Final Result Performing Organization Address City/[facility]/ZIP Co de Phone Number [facility] [address] [place], [place] [phone] documented in this encounter Visit Diagnoses Not on filedocumented in this encounter Care Teams Tile Installer Relationship Specialty Start Date End Date Unknown, Provider, PCP - General 11/11/18 documented as of this encounter
--- OUTSIDE RECORDS SUMMARY | 2024-03-16 16:51 | XMS_ITS | Encounter Summary ---
[place] [address] Care Team Providers Care General Assembler Name Role Phone Yael Munguia MD Primary Care Provider [phone] Reason for Visit * Reason Comments Procedure Encounter Details Date Type Department Care Team (Late st Contact Info) Description 03/03/2013 3:35 PM EST Office Visit Dermatology at [address] [phone] Wiliam Lynne MD [address] [place] [address], [facility] [place] [address] Verruca vulgaris (Primary Dx) Social History Tobacco [...] unspecified documented in this encounter Care Teams General Assembler Relationship Specialty Start Date End Date Yael Munguia MD [address] [place] [address] PCP - General 05/14/11 04/20/21 documented as of this encounter
--- OUTSIDE RECORDS SUMMARY | 2024-03-16 16:51 | XMS_ITS | Encounter Summary ---
[place] [address] Care Team Providers Care Fox Farmer Name Role Phone Yael Munguia MD Primary Care Provider [phone] Reason for Visit * Reason Comments Follow-up Encounter Details Date Type Department Care Team (Late st Contact Info) Description 06/19/2013 10:15 AM EST Office Visit Dermatology at [address] [phone] Wiliam Lynne MD [address] [facility], [place] [address] Verruca vulgaris (Primary Dx) Social History Tobacco [...] unspecified documented in this encounter Care Teams Fox Farmer Relationship Specialty Start Date End Date Yael Munguia MD [address] [place] [address] PCP - General 05/14/11 04/20/21 documented as of this encounter
--- OUTSIDE RECORDS SUMMARY | 2024-03-16 16:51 | XMS_ITS | Encounter Summary ---
Author Organization [facility] Address [address] [place] [address] Care Team Providers Care Duct Cleaner Name Role Phone Kimberly Lu MD Primary Care Provider [phone] Reason for Visit * Reason Onset Date Comments Hospital Discharge Follow Up 06/04/2018 Encounter Details Date Type Department Care Team (Late st Contact Info) Description 06/04/2018 Telephone [facility] Primary Care [facility] - [address] [phone] Jayda Thompson, RN [address] [place] [address] Hospital Discharge Follow Up Social History Tobacco [...] 08/05/2017 7:58 EDT documented in this encounter Miscellaneous Notes * Telephone Encounter [...] on filedocumented in this encounter Care Teams Duct Cleaner Relationship Specialty Start Date End Date Kimberly Lu MD PCP - General 07/28/17 11/10/18 documented as of this encounter
--- OUTSIDE RECORDS SUMMARY | 2024-03-16 16:51 | XMS_ITS | Encounter Summary ---
Author Organization [facility] Address [address] [place] [address] Care Team Providers Care Automotive Service Management Teacher Name Role Phone Kimberly Lu MD Primary Care Provider [phone] Reason for Visit * Reason Onset Date Comments Follow-up 06/03/2018 UC visit on for spost on legs Encounter Details Date Type Department Care Team (Late st Contact Info) Description 06/03/2018 Telephone [facility] Pediatric Primary Care - [address] [phone] Tommy Ritter RN [address] [place] [address] Follow-up (UC visit on 06/02/18 for spost [...] Miscellaneous Notes * Telephone Encounter - Katt Jimenez RN - 06/03/2018 0901 EST pc bam Ceja- in process- of getting new PCP- was a pt of in [facility], now at [facility]- enc pt to see adult care [...] on filedocumented in this encounter Care Teams Automotive Service Management Teacher Relationship Specialty Start Date End Date Kimberly Lu MD PCP - General 07/28/17 11/10/18 documented as of this encounter
--- OUTSIDE RECORDS SUMMARY | 2024-03-16 16:51 | XMS_ITS | Encounter Summary ---
Author Organization [facility] Address [address] [place] [address] Care Team Providers Care Commissions Analyst Name Role Phone Unknown, Provider Primary Care Provider Unava ilable Encounter Details Date Type Department Care Team (Late st Contact Info) Description 07/30/2021 Lab Requisition [facility] Pathology & Laboratory Medicine - [address] [address] Outr Resulting Lab, Provider Social History Tobacco [...] gonorrhoeae Result Negative Negative 07/31/2021 15:25 EDT [facility] Chlamydia trachomatis Result Negative Negative 07/31/2021 15:25 EDT [facility] Swab ENTIRE WALL OF CERVIX / Unknown 07/29/2021 13:30 EDT 07/30/2021 17:01 EDT us Provider Outr Resulting Lab MICROBIOLOGY - GENER AL ORDERABLES Final Result [facility] [address] [place] [address] documented in this encounter Visit Diagnoses Not on filedocumented in this encounter Care Teams Commissions Analyst Relationship Specialty Start Date End Date Unknown, Provider, PCP - General 11/11/18 documented as of this encounter
--- OUTSIDE RECORDS SUMMARY | 2024-03-16 16:51 | XMS_ITS | Encounter Summary ---
Author Organization [facility] Address [address] [place] [address] Care Team Providers Care Engineer Of System Development Name Role Phone Kimberly Lu MD Primary Care Provider [phone] Encounter Details Date Type Department Care Team ([facility] st Contact Info) Description 07/15/2018 Results Only [facility]- [facility] [phone] Olamide Gordon, [facility] [address] [place] [address] Social History Tobacco Use Types [...] EDT) Chlamydia Result Negative 07/18/2018 14:49 EDT [facility] GC Result Negative 07/18/2018 14:49 EDT [facility] VAGINAL STRUCTURE / Unknown 07/15/2018 16:00 EDT 07/15/2018 18:12 EDT us Olamide Gordon DNP MICROBIOLOGY - GENERAL ORDERAB LES Final Result Performing Organization Address [facility] Co de Phone Number [facility] [address] [place] [address] * VAGINITIS EXAM (07/15/2018 16:00 EDT) Gram Smear Result Yeast forms Present 07/15/2018 22:55 EDT [facility] Gram Smear Result Smear NOT consistent with bacterial vaginosis. 07/15/2018 22:55 EDT [facility] Result No Trichomonas antigen detected. 07/15/2018 21:15 EDT [facility] VAGINAL STRUCTURE / Unknown 07/15/2018 16:00 EDT 07/15/2018 18:10 EDT Comment:Specimen submitted o n a flocked swab. us Olamide Gordon DNP MICROBIOLOGY - GENERAL ORDERAB LES Final Result Performing Organization Address City/[facility]/ZIP Co de Phone Number [facility] [address] [place] [address] documented in this encounter Visit Diagnoses Not on filedocumented in this encounter Care Teams Engineer Of System Development Relationship Specialty Start Date End Date Kimberly Lu MD PCP - General 07/28/17 11/10/18 documented as of this encounter
--- OUTSIDE RECORDS SUMMARY | 2024-03-16 16:51 | XMS_ITS | Encounter Summary ---
[place] [address] Care Team Providers Care Tumbler Machine Operator Helper Name Role Phone Yael Munguia MD Primary Care Provider [phone] Reason for Visit * Reason Comments Follow-up Encounter Details Date Type Department Care Team (Late st Contact Info) Description 03/09/2013 11:45 AM EST Office Visit Dermatology at [address] [place] [phone] Wiliam Lynne MD [address] [place] [address], [place] [address] Wound check, dressing change (Primary Dx) Social [...] dressing documented in this encounter Care Teams Tumbler Machine Operator Helper Relationship Specialty Start Date End Date Yael Munguia MD [address] [place] [address] PCP - General 05/14/11 04/20/21 documented as of this encounter
--- OUTSIDE RECORDS SUMMARY | 2024-03-16 16:51 | XMS_ITS | Encounter Summary ---
Author Organization [facility] Address [address] [place] [address] Care Team Providers Care Repair Table Operator Name Role Phone Kimberly Lu MD Primary Care Provider [phone] Reason for Referral * Referral (Routine) - Receiving Office to Obtain Authorization Specialty Diagnoses / Procedures Referred By Contact Referred To Contact Gastroenterology and Hepatology Diagnoses Blood in stool Procedures COLONOSCOPY REQUEST Cedric Echeverria MD Phone: tel:[phone] fax:[phone] [address] [place] [address] Phone: tel: fax: Referral ID Status Reason Start Date Expiration Date Visits Requested Visits Authorized [id number] Receiving Office to Obtain Authorization 08/05/2017 1 1 Reason for Visit * Reason Comments New Patient Visit blood in stool * Consult (Routine) - Closed Specialty Diagnoses / Procedures Referred By Contact Referred To Contact Gastroenterology and Hepatology Diagnoses Blood in the stool Abdominal pain Kimberly Lu MD Phone: tel:[phone] fax:[phone] [address] Phone: tel: fax: Referral ID Status Reason Start Date Expiration Date Visits Re quested Visits Authorized [id number] Closed 1 1 Encounter Details Date Type Department Care Team (Late st Contact Info) Description 08/05/2017 8:00 EDT Office Visit [facility] Gastroenterology - [address] [address] Cedric Echeverria MD [address] [facility], [facility], Level [address] [place] [address] Blood in stool (Primary Dx) [...] 37.50% 08/05/2017 075 7 EDT Growth Chart: [facility] (Girls, 2- 20 Years) documented in this encounter Functional Status * [...] 08/05/2017 7:58 EDT documented in this encounter Ordered Prescriptions Prescription Sig Dispense Quantity Refills Last Filled Start Date End Date polyethylene glycol (GOLYTELY;NULYTEL Y) 236-22.74-6.74 -5.86 gram suspension Instructions mailed once procedure scheduled. Questions: [facility] Gastroenterology: [phone] or GI Doctor's Office. 4000 mL 08/05/2017 8 documented in this encounter Progress Notes * [...] abdominal pain. She is a freshman at [employer] and her symptoms have worsened over the school year. More severe and bothersome, and since December she has had frequent blood per rectum. This happens some with firm stools and more so when having diarrhea. She has a lot of urgency to move her bowels. No fevers. Occasional NSAIDs. No family history of IBD or colorectal cancer. Had bloodwork in ER at [facility] two weeks ago and had anemia [...] may reflect changes made after this encounter. Multivitamins with Minerals tablet tablet Take 1 Tab by mouth daily. desogestrel-ethin yl estradiol (ENSKYCE) 0.15-0.03 mg per tablet Take 1 Tab by mouth daily. ranitidine (ZANTAC) 150 mg tablet Take 150 mg by mouth 2 times daily as needed for Heartburn. added in this encounter Care Teams Repair Table Operator Relationship Specialty Start Date End Date Kimberly Lu MD PCP - General 07/28/17 11/10/18 documented as of this encounter
--- OUTSIDE RECORDS SUMMARY | 2024-03-16 16:51 | XMS_ITS | Encounter Summary ---
Author Organization [facility] [place] [address] Care Team Providers Care Social Media Marketing Specialist Name Role Phone Yael Munguia MD Primary Care Provider [phone] Reason for Visit * Reason Comments Follow-up Encounter Details Date Type Department Care Team (Late st Contact Info) Description 06/02/2013 9:15 AM EST Office Visit Dermatology at [address] [place] [id number] Wiliam Lynne MD [address] [place] [address], [place] [address] Verruca vulgaris (Primary Dx) Social History Tobacco [...] unspecified documented in this encounter Care Teams Social Media Marketing Specialist Relationship Specialty Start Date End Date Yael Munguia MD [address] [place] [address] PCP - General 05/14/11 04/20/21 documented as of this encounter
--- OUTSIDE RECORDS SUMMARY | 2024-03-16 16:51 | XMS_ITS | Encounter Summary ---
[place] [address] Care Team Providers Care Retail Loss Prevention Investigator Name Role Phone Yael Munguia MD Primary Care Provider [phone] Reason for Visit * Reason Comments Follow-up Encounter Details Date Type Department Care Team (Late st Contact Info) Description 01/05/2013 4:00 PM EDT Office Visit Dermatology [address] [facility] [address] [place] [address] Wiliam Lynne MD [address] [place] [address] RD, [place] [address] Verruca vulgaris (Primary Dx) Social History Tobacco [...] unspecified documented in this encounter Care Teams Retail Loss Prevention Investigator Relationship Specialty Start Date End Date Yael Munguia MD [address] [place] [address] PCP - General 05/14/11 04/20/21 documented as of this encounter
--- OUTSIDE RECORDS SUMMARY | 2024-03-16 16:51 | XMS_ITS | Encounter Summary ---
[place] [address] Care Team Providers Care Trimmer Loader Name Role Phone Yael Munguia MD Primary Care Provider [phone] Reason for Visit * Reason Comments Follow-up Encounter Details Date Type Department Care Team (Late st Contact Info) Description 12/16/2012 8:00 AM EDT Office Visit Dermatology [address] [facility] [address] [place] [address] Wiliam Lynne MD [address] [place] [address] RD, [place] [address] Verruca vulgaris (Primary Dx) Social History Tobacco [...] unspecified documented in this encounter Care Teams Trimmer Loader Relationship Specialty Start Date End Date Yael Munguia MD [address] [place] [address] PCP - General 05/14/11 04/20/21 documented as of this encounter
--- OUTSIDE RECORDS SUMMARY | 2024-03-16 16:51 | XMS_ITS | Encounter Summary ---
[place] [address] Care Team Providers Care Cell Tender Name Role Phone Austyn James APRN Primary Care Provider [phone] Reason for Referral * Diagnostic Test (Routine) - Closed Specialty Diagnoses / Procedures Referred By Contac t Referred To Contact Radiology Diagnoses Tear of left acetabular labrum, initial encounter Procedures MRI Arthrogram Hip Left Lucio Maldonado MD [address] [place] [address] [place] [address] Referral ID Status Reason Start Date Expiration Date V isits Requested Visits Authorized [id number] Closed Specialty Service Requested 04/04/2021 04/30/2021 1 1 Reason for Visit * Diagnostic Test (Routine) - Closed Specialty Diagnoses / Procedures Referred By Contac t Referred To Contact Radiology Diagnoses Tear of left acetabular labrum, initial encounter Procedures MRI Arthrogram Hip Left Lucio Maldonado MD [address] [place] [address] [place] [address] Referral ID Status Reason Start Date Expiration Date V isits Requested Visits Authorized [id number] Closed Specialty Service Requested 04/04/2021 04/30/2021 1 1 Encounter Details Date Type Department Care Team (Latest Contact Info) Description 04/21/2021 9:26 AM EST - 04/21/2021 11:59 PM EST Hospital [place] [id number] Lucio Maldonado MD [address] [place] [address] Tear of left acetabular labrum, initial encounter [...] who have questions please contact the health day care provider that requested your imaging first. ? Narrative [...] and sagittal PD FS sequences. Full pelvis [id number] coronal T1 and STIR sequences are provided. [...] FS and sagittal PD FS sequences. Fullpelvis [id number] coronal T1 and STIR sequences are provided. [...] patients who have questions please contactthe health day care provider that requested your imaging first. Lucio Maldonado MD IMG MRI ORDERABLES documented in this encounter Visit Diagnoses Diagnosis Tear of left acetabular labrum, initial encounter documented in this encounter Care Teams Cell Tender Relationship Specialty Start Date End Date Austyn James, DYER HELPER [address] [place] [address] [address] [facility] [address] [place] [address] PCP - General Family Medicine 04/21/21 documented as of this encounter
--- OUTSIDE RECORDS SUMMARY | 2024-03-16 16:52 | XMS_ITS | Encounter Summary ---
[place] [address] Care Team Providers Care Camp Program Director Name Role Phone Angie Cardenas MD Primary Care Provider [phone] Reason for Visit * Reason Comments Verrucous Vulgaris Encounter Details Date Type Department Care Team (Late st Contact Info) Description 12/31/2010 4:00 PM EDT Office Visit Dermatology [address] [facility] [address] [place] [address] Wiliam Lynne MD [address] [place] [address] RD, [place] [address] Verruca vulgaris (Primary Dx) Social History Tobacco [...] unspecified documented in this encounter Care Teams Camp Program Director Relationship Specialty Start Date End Date Angie Cardenas MD [facility] CHILD ADVOCACY & [place] [address] PCP - General 03/18/10 05/13/11 documented as of this encounter
--- OUTSIDE RECORDS SUMMARY | 2024-03-16 16:52 | XMS_ITS | Encounter Summary ---
[place] [address] Care Team Providers Care [employer] Principal Name Role Phone Angie Cardenas MD Primary Care Provider [phone] Reason for Visit * Reason Comments Verrucous Vulgaris Encounter Details Date Type Department Care Team (Late st Contact Info) Description 02/26/2011 11:15 AM EDT Office Visit Dermatology [address] [facility] [address] [place] [address] Wiliam Lynne MD [address] [place] [address] RD, [place] [address] Verruca vulgaris (Primary Dx) Social History Tobacco [...] unspecified documented in this encounter Care Teams [employer] Principal Relationship Specialty Start Date End Date Angie Cardenas MD [facility] [address] CHILD ADVOCACY & [place] [address] PCP - General 03/18/10 05/13/11 documented as of this encounter
--- OUTSIDE RECORDS SUMMARY | 2024-03-16 16:52 | XMS_ITS | Encounter Summary ---
[place] [address] Care Team Providers Care Medical Staff Services Manager Name Role Phone Angie Cardenas MD Primary Care Provider [phone] Reason for Visit * Reason Comments Verrucous Vulgaris Encounter Details Date Type Department Care Team (Late st Contact Info) Description 04/23/2011 4:15 PM EST Office Visit Dermatology [address] [facility] [address] [place] [address] Wiliam Lynne MD [address] [place] [address] RD, [place] [address] Verruca vulgaris (Primary Dx) Social History Tobacco [...] unspecified documented in this encounter Care Teams Medical Staff Services Manager Relationship Specialty Start Date End Date Angie Cardenas MD [facility] CHILD ADVOCACY & [place] [address] PCP - General 03/18/10 05/13/11 documented as of this encounter
--- OUTSIDE RECORDS SUMMARY | 2024-03-16 16:52 | XMS_ITS | Continuity of Care Document ---
Author Organization [facility] Ambulatory Clinics Address [address] [place] [address] Encounter [facility] NBR [id number] Date(s): 07/19/22 - 07/19/22 [facility] Ambulatory Clinics [address] [place], [place] [address] Encounter Diagnosis Otalgia of right ear(Discharge Diagnosis) - 07/19/22 Discharge Disposition: Home or Self Care Attending Physician: Carlos Vital. PA Allergies, Adverse Reactions, Alerts Substance Reaction Severity Status amoxicillin Unknown Active Augmentin Unknown Active Functional Status 07/19/22 Other exposure to Infectious Disease Non e Medications Fiber Choice 0 Refill(s) Start Date: 07/19/22 Status: Ordered Problem List No Known Problems Vital Signs Most recent to oldest [Reference Range]: 1 Temperature Tympanic [36.6-37.9 Deg C] 3 6.8 Deg C (07/19/22 9:31 AM) Peripheral Pulse Rate [60-100 bpm] 66 bp m (07/19/22 9:31 AM) Blood Pressure [90-140/60-90 mmHg] 100/5 8mmHg (07/19/22 9:31 AM) Weight 58.97 kg (07/19/22 9:31 AM) Weight Measured (lbs) 130.006 lb (07/19/22 9:31 AM) Height 162.56 cm (07/19/22 9:31 AM) Height/Length Measured (inches) 64 inch (07/19/22 9:31 AM) BSA Measured 1.63 m2 (07/19/22 9:31 AM) Body Mass Index 22.32 kg/m2 (07/19/22 9:31 AM) Social History Social History Type Response Tobacco Never tobacco user T obacco Use:. Sex Physician Outpatient Note * Carlos Vital. PA: PERFORM Event Display: Office Clinic Note Physician Authored Date: [id number] SHERIDAN TIERNEY :2000 Age:21 years Sex:Female Visit Date:07/19/2022 Chief Complaint pt reports right ear pain, hurts to swallow on right side symptoms started about 3 day ago History of Present Illness 3-day history of right ear ache.?? No??upper respiratory symptoms no runny nose, cough. ??No sore throat but feels pain radiating to her throat. ??Denies any pain with jaw movement.?? Denies any ear drainage. ??No fever, chills, sweats no nausea vomiting or diarrhea. ??No known exposures.?? Otherwise been well. ??History of ear infections as a child. ??None recently. Physical Exam Vitals & Measurements T:??36.8?C ??(Tympanic)?? HR:??66??(Peripheral)?? BP:??100/58?? SpO2:??100%?? HT:??162.56??cm?? WT:??58.97??kg?? BMI:??22.32?? Pain Score:??6?? BSA:??1.63?? Well-appearing no acute distress Head normocephalic Eyes conjunctive a clear Left TM??occluded by cerumen right TM pearly perez with good landmarks. ??No redness no bulging no drainage.?? No pain on ear movement. Mouth tonsils absent. ??Uvula midline. ??No erythema, exudate. Neck supple nontender no lymphadenopathy Assessment/Plan 1.??Otalgia of right ear??H92.01 Possible early viral illness with ear fluid.?? As the cause of her otalgia. ??Recommend symptomaticcare ibuprofen, Sudafed, recheck if worse or not improving over the next several days??patient was agreeable. Patient Instructions Verbal instructions per patient request Problem List/Past Medical History Ongoing No chronic problems Historical No qualifying data Medications Fiber Choice Allergies Augmentin amoxicillin Social History Electronic Cigarette/Vaping Electronic Cigarette Use: Never. Tobacco Never tobacco user Tobacco Use:. Electronically Signed on 07/19/22 09:43 AM Carlos ValdovinostonFadumo DIAZ
--- OUTSIDE RECORDS SUMMARY | 2024-03-16 16:52 | XMS_ITS | Encounter Summary ---
Author Organization [facility] Address [facility] [place] [address] Care Team Providers Care Retail And Promotions Coordinator Name Role Phone Angie Cardenas MD Primary Care Provider [phone] Encounter Details Date Type Department Care Team (Late st Contact Info) Description 11/28/2010 Abstract Dermatology [address] [facility] [address] [place] [address] Rosa Tucker, RN Social History Tobacco Use [...] on filedocumented in this encounter Care Teams Retail And Promotions Coordinator Relationship Specialty Start Date End Date Angie Cardenas MD [facility] CHILD ADVOCACY & [place] [address] PCP - General 03/18/10 05/13/11 documented as of this encounter
--- OUTSIDE RECORDS SUMMARY | 2024-03-16 16:52 | XMS_ITS | Encounter Summary ---
[place] [address] Care Team Providers Care Dobby Looms Pegger Name Role Phone Yael Munguia MD Primary Care Provider [phone] Reason for Visit * Reason Comments Verrucous Vulgaris Encounter Details Date Type Department Care Team (Late st Contact Info) Description 06/04/2011 4:15 PM EST Office Visit Dermatology [facility] [address] [place] [address] Wiliam Lynne MD [address] [place] [address] RD, [place] [address] Verruca vulgaris (Primary Dx) Social History Tobacco [...] unspecified documented in this encounter Care Teams Dobby Looms Pegger Relationship Specialty Start Date End Date Yael Munguia MD [address] [place] [address] PCP - General 05/14/11 04/20/21 documented as of this encounter
--- OUTSIDE RECORDS SUMMARY | 2024-03-16 16:52 | XMS_ITS | Encounter Summary ---
[place] [address] Care Team Providers Care Camp Recreation Specialist Name Role Phone Yael Munguia MD Primary Care Provider [phone] Reason for Visit * Reason Comments Verrucous Vulgaris Encounter Details Date Type Department Care Team (Late st Contact Info) Description 05/14/2011 3:45 PM EST Office Visit Dermatology [address] [facility] [address] [place] [address] Wiliam Lynne MD [address] [place] [address] RD, [place] [address] Verruca vulgaris (Primary Dx) Social History Tobacco [...] documented in this encounter Care Teams Camp Recreation Specialist Relationship Specialty Start Date End Date Yael Munguia MD [address] [place] [address] PCP - General 05/14/11 04/20/21 documented as of this encounter
--- OUTSIDE RECORDS SUMMARY | 2024-03-16 16:52 | XMS_ITS | Encounter Summary ---
[place] [address] Care Team Providers Care Harvester Operator Name Role Phone Angie Cardenas MD Primary Care Provider [phone] Reason for Visit * Reason Comments Verrucous Vulgaris Encounter Details Date Type Department Care Team (Late st Contact Info) Description 12/01/2010 2:45 PM EDT Office Visit Dermatology [address] [facility] [address] [place] [address] Wiliam Lynne MD [address] [place] [address] RD, [place] [address] Verruca vulgaris (Primary Dx) Social History Tobacco [...] unspecified documented in this encounter Care Teams Harvester Operator Relationship Specialty Start Date End Date Angie Cardenas MD [facility] CHILD ADVOCACY & [place] [address] PCP - General 03/18/10 05/13/11 documented as of this encounter
[2024-03-16] MEDS: Oxymetazolone 0.05% SPRAY 15 ML BTL NS (17:02)
[2024-03-16 17:05] VITALS: BP 121/80; PULSE 91; RESP 14; TEMP 36; O2SAT 98
== END 2024-03-16 17:05 | disposition home or self-care (01) ==
PROVIDERS: Emergency Provider Emergency Medicine; PCP Nurse Practitioner Family
DX: R04.0 Epistaxis (principal); Z3A.24 24 weeks gestation of pregnancy
CPT/HCPCS: 30903; 36415; 99283; 85025

== ENCOUNTER 2024-04-04 01:57 | Outpatient (CLI) | payer BC, SELFPAY ==
[2024-04-04 10:30] LABS: HCT 33.5 % (36.0-46.0); HGB 11.6 g/dL (11.2-15.7); MCH 30.8 pg (27.0-33.0); MCHC 34.6 % (32.0-36.0); MCV 89 fL (80-95); MPV 9.2 fL (8.0-11.0); Platelet Count 225 10^3/uL (130-400); RBC 3.77 10^6/uL (3.93-5.22); RDW 12.4 % (11.7-14.6); RDW-SD 40.5 fL; WBC 12.65 10^3/uL (4.4-10.8)
[2024-04-04 11:10] LABS: Glucose,1 Hr (Glucola) 104 mg/dL (80-140)
== END 2024-04-04 01:58 | disposition home or self-care (01) ==
LOC: LBO 01:58
PROVIDERS: PCP Nurse Practitioner Family; Visit Provider Advanced Practice Midwife
DX: Z34.92 Encounter for supervision of normal pregnancy, unspecified, second trimester (principal)
CPT/HCPCS: 36415; 82950; 85027

== ENCOUNTER 2024-06-05 09:28 | Outpatient (REF) | payer OTHER, SELFPAY | END 2024-06-05 09:29 | disposition home or self-care (01) | LOC: LBN 09:28 | PROVIDERS: PCP Nurse Practitioner Family; Visit Provider Advanced Practice Midwife | DX: Z34.93 Encounter for supervision of normal pregnancy, unspecified, third trimester (principal); Z3A.36 36 weeks gestation of pregnancy | CPT/HCPCS: 87081 ==

== ENCOUNTER 2024-06-23 10:48 | Outpatient (CLI) | payer OTHER, SELFPAY ==
[2024-06-23 11:40] VITALS: BP 119/71; PULSE 77; TEMP 36.9
[2024-06-23 11:44] VITALS: BP 119/71; PULSE 77
--- NOTE | 2024-06-23 12:33 | W.OBNST ---
Date of service: 06/23/24 Time of Service: 12:33 NST Evaluation Reason for NST Reasons for Nonstress Test: FALSE LABOR Gestational Age Gestational Age in Weeks and Days: 38 Weeks and 4Days Test and Monitor Explained Test/Monitor Explained: Test Explained Vital Signs Blood Pressure: 119/71 Pulse: 77 Temperature: 98.4 F Urine Results Urine Protein: Negative Urine Ketones: Negative Urine Glucose: Negative Urine Blood: Negative NST Information Date on Monitor: 06/23/24 Time on Monitor: 11:30 Date off Monitor: 06/23/24 Time off Monitor: 12:15 Total Time on Monitor: 45 NST Interventions: None Contraction Frequency: 0 NST Evaluation Patient States Movement: Present FHR Baseline: 130 Variability: Moderate 6-25 bpm Accelerations: 15x15 Decelerations: None NST Results: Reactive Note Ultrasound Done: N/A. NST Note Note: Speculum exam performed, neg pooling, neg ferning, neg nitrizine VPS collected from generous amount of vaginal mucous that is milky with a few bubbles Cvx 1/thick, intact membranes, no labor Will call with VPS results NST Reviewed and Verified by: Gena Nguyen
[2024-06-23 12:36] VITALS: BP 119/71; PULSE 77; TEMP 36.9
[2024-06-23 17:44] VITALS: BP 119/71; PULSE 77; TEMP 36.9
--- NOTE | 2024-06-23 17:44 | W.OBNST ---
Date of service: 06/23/24 Time of Service: 12:30 NST Evaluation Reason for NST Reasons for Nonstress Test: FALSE LABOR Gestational Age Gestational Age in Weeks and Days: 38 Weeks and 4Days Test and Monitor Explained Test/Monitor Explained: Test Explained Vital Signs Blood Pressure: 119/71 Pulse: 77 Temperature: 98.4 F Urine Results Urine Protein: Negative Urine Ketones: Negative Urine Glucose: Negative Urine Blood: Negative NST Information Time on Monitor: 11:30 Date off Monitor: 06/23/24 Time off Monitor: 12:15 NST Interventions: None Contraction Frequency: 0 NST Evaluation Patient States Movement: Present FHR Baseline: 130 Variability: Moderate 6-25 bpm Accelerations: 15x15 Decelerations: None NST Results: Reactive Note Ultrasound Done: N/A. NST Note Note: ROM ruled out with SSE NST Reviewed and Verified by: Edwige Sykes
[2024-06-24 17:17] VITALS: BP 161/95; PULSE 81
== END 2024-06-23 12:02 ==
LOC: BCD 10:50 → OBS 11:37
PROVIDERS: PCP Nurse Practitioner Family; Visit Provider Advanced Practice Midwife
DX: O47.1 False labor at or after 37 completed weeks of gestation (principal); Z3A.38 38 weeks gestation of pregnancy
CPT/HCPCS: 59025; 87480; 87510; 87660

== ENCOUNTER 2024-07-10 07:24 | Outpatient (CLI) | payer OTHER, SELFPAY ==
[2024-07-10 14:27] VITALS: BP 135/75; PULSE 99
[2024-07-10 15:00] VITALS: BP 135/75; PULSE 99; TEMP 36.7
--- NOTE | 2024-07-10 15:57 | W.OBNST ---
Date of service: 07/10/24 Time of Service: 15:58 NST Evaluation Reason for NST Reasons for Nonstress Test: POSTDATES Gestational Age Gestational Age in Weeks and Days: 41 Weeks and 0Days Test and Monitor Explained Test/Monitor Explained: Test Explained, Monitor Explained and Patient Verbalized Understanding Vital Signs Blood Pressure: 135/75 Pulse: 99 Temperature: 98.1 F Urine Results Urine Protein: Negative Urine Ketones: Negative Urine Glucose: Negative Urine Blood: Negative NST Information Date on Monitor: 07/10/24 Time on Monitor: 14:25 Date off Monitor: 07/10/24 Time off Monitor: 14:55 Total Time on Monitor: 30 NST Interventions: None Contraction Frequency: 1-7 NST Evaluation Patient States Movement: Present FHR Baseline: 150 Variability: Moderate 6-25 bpm Accelerations: 15x15 Decelerations: None NST Results: Reactive Note Ultrasound Done: TIN (postdates) Largest Vertical Pocket: 4 Total TIN: 13 Other Pertinent Findings: Heart Rate (150), Presentation (cephalic) and Placental Location Coding for TIN w/NST: Completed Exam. NST Note Note: cvx 1-2/80% soft and posterior, vtx -2 Booked for postdates IOL 07/12 NST Reviewed and Verified by: Gena Nguyen
[2024-07-10 15:59] VITALS: BP 135/75; PULSE 99; TEMP 36.7
== END 2024-07-10 15:52 ==
LOC: BCD 07:27 → OBS 14:13
PROVIDERS: PCP Nurse Practitioner Family; Visit Provider Advanced Practice Midwife
DX: O48.0 Post-term pregnancy (principal); Z3A.41 41 weeks gestation of pregnancy
CPT/HCPCS: 59025; 76815

== ENCOUNTER 2024-07-11 05:14 | Inpatient (IN) | payer OTHER, SELFPAY ==
[2024-07-11] VITALS (159 sets, daily range): BP systolic 87–134; BP diastolic 50–81; PULSE 61–119; RESP 16–17; TEMP 36.5–37.4; O2SAT 91–100; BMI 26.9
--- NOTE | 2024-07-11 05:17 | W.PM.OBHPL1 ---
Date of service: 07/11/24 Time of Service: 05:17 Assessment and Plan Assessment and plan (1) PROM (premature rupture of membranes): Status: Acute Assessment and plan: A: 23 yo G1 @ 41+1 wks, NST reactive & TIN 13 at postdates surveillance yesterday PROM since 1950 last night, GBS negative, cvx favorable w/[place] score is 9 Category 1 tracing, ROM confirmed, fluid is clear, not in active labor Low risk for SD and PPH, afebrile, normotensive P: Admit to BC, CBC, T&S, options reviewed w/pt, she requests pitocin induction after breakfast Epidural is planned for active labor, previously had [facility] consult d/t scoliosis Will initiate IV access and plan pitocin infusion per protocol Notification sent to [facility] OB-HPI Labor/Delivery History of Present Illness Reason for Visit: labor Chief Complaint: Suspected Rupture of Membranes , Associated Signs and Symptoms of Suspected ROM: SROM 1950 last evening, has slept on and off through the night, having a few painful contractions now, no bleeding.. ALLY Calculator Estimated Delivery Date Method Current WG Current Estimate 07/03/24 LMP (Certain) 41w 1d Other Estimates 07/07/24 Ultrasound #1 40w 4d History of Present Expected Delivery Route/Plan - CNM FOB/ - Cristian Yousif (first child) BG Planning epidural, worked with Lorena discussing labor preparation GBS negative Specific Issues/Plan 1. History of Scoliosis - [facility] consult on 05/01, no issues anticipated 2. History of anxiety - sertraline in the past , no meds currently 3. Chronic heartburn, protonix escribed 12/15/23 4. History of chronic constipation-Taking colace PRN 5. 5 P's neg 6. hemorrhoid - medication with HC recommended 7. Due for Pap Assessment: History Reviewed & Current Informed Consent Informed Consent: Induction of Labor, Regional Anesthesia and Risk,Benefits,Alternatives Discussed Review of Systems Narrative: ROS completed and noncontributory other than HPI PFSH All Active Problems (Updated 07/11/24 @ 05:33 by Gena Nguyen) PROM (premature rupture of membranes) (Acute) Irritable bowel syndrome with constipation (Acute) (Acute) Anxiety (Chronic) Scoliosis (Acute) Gastroesophageal reflux disease (Chronic) Medical History (Updated 07/11/24 @ 05:33 by Gena Nguyen) Family history of thyroid disease Chronic constipation with overflow Chronic anal fissure Lactose intolerance Family history of irritable bowel syndrome Labral tear of left hip joint surgical repair in 2021 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 Paternal Grandfather Substance use disorder Alcohol use disorder Maternal Grandmother Alcohol use disorder Thyroid disease Paternal Grandmother Thyroid disease Social History Smoking/Tobacco Use Status: Never Second Hand Exposure: No Smoking risk assessment performed?: Yes Alcohol Intake: current Alcohol Intake frequency: a few times a week Alcohol type: beer, wine and hard liquor Drug use: Occasionally Substance use type: marijuana Adopted: No Caregiver/Support person: No Foster care: No Household members: significant other Housing: house Number of Children: 0 Communication Needs: None Do you need help understanding health information?: Never Pets and animals: Yes Pets and animals: cat(s) Sexually active: Yes Do you think of yourself as: straight/heterosexual Current gender identity: female What is your relationship status?: living with partner How often do you talk on the phone with friends or family?: three or more times per week How often do you get together with friends or relatives?: once per week How often do you attend scientologist or moravian services?: decline to answer Do you belong to any clubs or organized social groups?: no Panel score (0-1 are the most socially isolated patients): 2 What type of physical activity do you participate in: aerobic, bicycling and other Details: DANCING Duration: 45-60 minutes/day Frequency: 5-6 times per week Marilia/Zoroastrianism: No preference Special marilia needs: No Seatbelt use: always Helmet use: Yes Helmet use: always Drive intox or ride w/intox box truck driver: No Do you feel safe at home: Yes Do you feel safe in your relationship?: Yes Female Reproductive History Menstrual control method: progestin IUCD History History 1 Para 0 Hx # Term Pregnancies 0 Multiple births 0 Hx # Pregnancies 0 Ectopic pregnancies 0 AB induced 0 Hx Number of Living Children 0 AB spontaneous 0 Meds Allergies and Home Medications Allergies Allergy/AdvReac Type Severity Reaction Status Date / Time amoxicillin AdvReac Intermediate Diarrhea Verified 07/03/24 08:33 amoxicillin trihydrate (From AdvReac Intermediate Diarrhea Verified 07/03/24 08:33 Augmentin) potassium clavulanate (From AdvReac Intermediate Diarrhea Verified 07/03/24 08:33 Augmentin) Home Medications ?Medication ?Instructions ?Recorded ?Confirmed ?Type pantoprazole 40 mg tablet,delayed 40 mg PO DAILY #30 tabs 12/15/23 07/03/24 Rx release (Protonix) vits no.126-ferrous fum 1 tab PO DAILY 12/15/23 07/03/24 History 28 mg iron-folic acid 800 mcg tablet (Classic ) psyllium husk 0.4 gram capsule 0.4 g PO DAILY PRN constipation #1 01/12/24 07/03/24 Rx (Metamucil) cap docusate sodium 100 mg capsule 100 mg PO DAILY 03/16/24 07/03/24 History (Colace) ondansetron HCl 4 mg tablet 4 mg PO Q8H PRN 05/29/24 07/03/24 History Exam Physical Exam Vital signs: Temp Pulse BP 98.4 F 83 121/73 07/11/24 05:04 07/11/24 05:04 07/11/24 05:04 Vital Signs Reviewed: Yes Constitutional Constitutional: no acute distress, average body habitus and cooperative Detailed Labor and Delivery Exam Dilation: 3 Effacement (%): 80 station: -2 Cervix position: anterior Consistency: soft [place] Score(Cervical Ripeness Score): 9 Amniotic Membrane Status: Ruptured (since 1949) Rupture Method: Spontaneous Amniotic Fluid: Clear Pooling: Positive Nitrazine: Positive Ferning: Present Monitor Mode: External Contraction Frequency(min): mild irregular, occasionally frequent Contraction Duration(sec): 50 Contraction Intensity: Mild Fetus A Heart Rate Baseline: 140 Monitor Accelerations: 15 X 15 Monitor Decelerations: None Variability: Moderate (6-25 BPM) Categories: Category I Est. Weight: 7 lb 11.459 oz Est. Weight: 3500 gms Date of Membrane Rupture: 07/11/24 Time of Membrane Rupture: 19:50 HEENT Exam HEENT Exam: Normal Neck Exam Neck Exam: Normal Chest/Brest/Axilla Exam Chest Exam: Normal Breast Exam Breast Exam: Not Done Respiratory Exam Respiratory Exam: Normal Cardiovascular Exam Cardiovascular Exam: Normal Abdominal Exam Abdominal Exam: Normal (soft, nontender) Rectal Exam Rectal Exam: Normal Exam Exam: Normal Extremities Exam Extremities Exam: Normal Back/Spine/Pelvis Exam Back Exam: Normal Pelvis Adequate: Yes Skin Exam Skin Exam: Normal Neurological Exam Neurological Exam: Normal Psychiatric Exam Psychiatric Exam: Normal Results Results Group Beta Strep: Negative Blood Type: O+ Rubella Status: Immune Varicella Immunity: Immune Risk Assessment Risk for Shoulder Dystocia Historical/Initial OB: NEGATIVE FOR: Pelvic Abnormality, Pre- BMI>30, Previous Shoulder Dystocia or Previous Macrosomia 36 Weeks: NEGATIVE FOR: Current Gestational DM, EFW>4500gms or Maternal Weight Gain>40lbs 40 Weeks: POSTIVE FOR: Post Dates; NEGATIVE FOR: EFW> 4500 gms or Maternal Weight Gain >40lb Increased Risk?: No Delivery Plan @ 36wks: Delivery Plan @ 40 wks: , IOL after 41 wks Risk for Pre-Eclampsia Daily Dose ASA Indicated: No Yes, if one or more: NEGATIVE FOR: Hx Pre-E/Gest HTN, Chronic HTN, Multiple Gestation, Pre-gestational DM, Renal Disease, Systemic Lupus or APA Syndrome Yes, if 2 or more: POSITIVE FOR: Nulliparity; NEGATIVE FOR: Age>= 35 yrs, >10yr btwn pregnancies, BMI>30, ethinicty, Mother/Sister w/ Pre-E or Previous IUGR Risk for Post- Hemorrhage Initial: NEGATIVE FOR: Multiple Gestation, Previous PPH, Known Clotting Deficiency, Grand Multiparity or Anticoagulation 36 Weeks: NEGATIVE FOR: Anemia, hgb<10, Low platelets(thrombocytopenia), Gestational HTN or Pre-E, Polyhydraminios or EFW>4500gms 40 Weeks: NEGATIVE FOR: Anemia, hgb<10, Low platelets (thrombocytopenia), Gestation HTN or Pre-E, Polyhydraminios or EFW>4500gms At Risk?: No Counseled re: Active Management: Yes Risks Reviewed Risks Reviewed Upon Admission: Yes
[2024-07-11 05:41] LABS: HCT 32.6 % (36.0-46.0); HGB 10.6 g/dL (11.2-15.7); MCH 26.6 pg (27.0-33.0); MCHC 32.5 % (32.0-36.0); MCV 82 fL (80-95); MPV 10.6 fL (8.0-11.0); Platelet Count 201 10^3/uL (130-400); RBC 3.99 10^6/uL (3.93-5.22); RDW 13.8 % (11.7-14.6); RDW-SD 40.8 fL
--- NOTE | 2024-07-11 06:25 | W.ANESPRE ---
General Info Date of Service Date Performed: 07/11/24 Height: 5 ft 4 in Weight: 71.214 kg Body Mass Index (BMI): 26.9 Meds Allergies and Home Medications Allergies Allergy/AdvReac Type Severity Reaction Status Date / Time amoxicillin AdvReac Intermediate Diarrhea Verified 07/03/24 08:33 amoxicillin trihydrate (From AdvReac Intermediate Diarrhea Verified 07/03/24 08:33 Augmentin) potassium clavulanate (From AdvReac Intermediate Diarrhea Verified 07/03/24 08:33 Augmentin) Home Medication ?Medication ?Instructions ?Recorded pantoprazole 40 mg tablet,delayed 40 mg PO DAILY #30 tabs 12/15/23 release (Protonix) vits no.126-ferrous fum 1 tab PO DAILY 12/15/23 28 mg iron-folic acid 800 mcg tablet (Classic ) psyllium husk 0.4 gram capsule 0.4 g PO DAILY PRN constipation #1 01/12/24 (Metamucil) cap docusate sodium 100 mg capsule 100 mg PO DAILY 03/16/24 (Colace) ondansetron HCl 4 mg tablet 4 mg PO Q8H PRN 05/29/24 Current Visit Medications: Current Medications Generic Name Dose Route Start Last Admin Trade Name Freq PRN Reason Stop Dose Admin Ringer's Solution 1,000 mls @ 125 mls/hr 07/11/24 05:15 [facility] Oxytocin/Sodium Chloride 30 unit in 500 mls @ 2 mls/hr 07/11/24 05:15 Pitocin/Normal Saline [facility] Protocol 2 MILLIUNITS/MIN IV Miscellaneous Supplies 1 each 07/11/24 05:15 Iv Access IV DIRECTED PER[facility] Pantoprazole Sodium 40 mg 07/11/24 08:30 Pantoprazole 40 Mg Tabcr PO DAILY [facility] Sodium Chloride 0 ml 07/11/24 05:14 Normal Saline Flush 10 Ml Syr IVP PRN PRN Sodium Chloride 0 ml 07/11/24 08:30 Normal Saline Flush 10 Ml Syr IVP BID [facility] Sodium Chloride 0 ml 07/11/24 05:14 Normal Saline 10 Ml Vial IJ DIRECTED PRN PFSH Active Problems Active Problems: Problem Status Onset Code PROM (premature rupture of membranes) Acute O42.90 Irritable bowel syndrome with constipation Acute K58.1 Acute Z34.90 Anxiety Chronic Scoliosis Acute M41.9 Gastroesophageal reflux disease Chronic K21.9 Medical History Medical History (Updated 07/11/24 @ 05:33 by Gena Nguyen) Family history of thyroid disease Chronic constipation with overflow Chronic anal fissure Lactose intolerance Family history of irritable bowel syndrome Labral tear of left hip joint surgical repair in 2021 Femoroacetabular impingement of left hip Surgically repaired in 2021 Breast fibroadenoma in female Rectal bleeding Rectal pain Lumbar spine scoliosis Buckle fracture of distal ends of radius and ulna left- 2007 Gastritis Patellofemoral syndrome Nocturnal enuresis resolved Obstructive sleep apnea resolved after T&A Surgical History Surgical History History of colonoscopy (~09/18/22) History of repair of left hip joint Tonsillectomy and adenoidectomy age 1yr Tobacco Smoking/Tobacco Use Status: Never Passive smoking exposure: No Second hand exposure: No Alcohol Alcohol Intake: current Alcohol intake frequency: a few times a week Alcohol type: beer, wine and hard liquor Substance Use Substance use: Occasionally Substance use type: marijuana Prental History History 1 Para 0 Hx # Term Pregnancies 0 Multiple births 0 Hx # Pregnancies 0 Ectopic pregnancies 0 AB induced 0 Hx Number of Living Children 0 AB spontaneous 0 Vital Signs and Lab Results Vital Signs Most Recent Vital Signs in EMR: Most Recent Vital Signs Temp Pulse BP 36.5 C 78 126/81 07/11/24 06:17 07/11/24 06:17 07/11/24 06:17 Lab Results 07/11/24 05:27 Blood Type / Crossmatch: Antibody Screen NEGATIVE 07/11/24 Complete Blood Count: White Blood Count 10.70 10^3/uL (4.4-10.8) 07/11/24 05:27 Red Blood Count 3.99 10^6/uL (3.93-5.22) 07/11/24 05:27 Hemoglobin 10.6 g/dL (11.2-15.7) L 07/11/24 05:27 Hematocrit 32.6 % (36.0-46.0) L 07/11/24 05:27 Platelet Count 201 10^3/uL (130-400) 07/11/24 05:27 Complete Metabolic Panel: No Data to Display Liver Function Panel: No Data to Display Coagulation Panel: No Data to Display Cardiac Panel: No Data to Display Arterial Blood Gas: No Data to Display Venous Blood Gas: No Data to Display Pancreas Panel: No Data to Display Thyroid Panel: No Data to Display Infectious Disease: No Data to Display Blood Cultures: No Data to Display Toxicology Panel: No Data to Display Panel: No Data to Display Anesthesia Assessment and Plan Anesthesia History Personal History: No History of Anesthesia Complications Family History: No Family History of Anesthesia Complications Exercise Tolerance Exercise Tolerance: Metabolic Equivalents>4 Pertinent Negatives Pertinent Negatives: No Major Cardiovascular Symptoms or Complaints, No Major Pulmonary Symptoms or Complaints and No History of CVA/TIA Cardiac & Pulmonary Exam Cardiac Exam: Normal S1/S2 Heart Sounds Pulmonary Exam: Clear Bilateral Breath Sounds Implantable Cardiac Device Does patient have a Pacemaker or an ICD?: No Airway Exam Known Difficult Airway: No Mallampati Class: 3 Mouth Opening: Normal (> 3cm) Thyromental Distance: Greater than 3 cm Neck Range of Motion: Full ROM Neck Circumference: Normal Teeth Condition: Normal Dentition ASA Classification ASA Score: ASA 2 Emergency Case?: No NPO Status NPO Status: Full Stomach Status Status: Confirmed Anesthesia Plan Resuscitation Status: Full Code Anesthesia Technique: Epidural Anesthesia Airway Planned: Natural Airway Pain Management: Epidural Monitors Used: Standard Monitors Preoperative Comments:: 23 yo G1 female at 41 weeks requesting labor epidural. Sig PMHx: GERD (protonix), scoliosis (per her chiro, no imaging, denies neurologic complication related to this), anxiety. never smoker. Plt: 201 Previous Anes: - [place], prop, natural airway, no issues. - Hip scope, prop/dex, Mac 3 grade 1, easy mask.
--- NOTE | 2024-07-11 07:18 | W.OBNST ---
Date of service: 07/11/24 Time of Service: 07:18 NST Evaluation Reason for NST Reasons for Nonstress Test: OTHER, SEE COMMENT Reason for NST Other: Labor check Gestational Age Gestational Age in Weeks and Days: 41 Weeks and 1Days Test and Monitor Explained Test/Monitor Explained: Test Explained, Monitor Explained and Patient Verbalized Understanding Vital Signs Blood Pressure: 121/73 Pulse: 83 Temperature: 98.0 F Urine Results Urine Protein: Negative Urine Ketones: Negative Urine Glucose: Negative Urine Blood: Negative NST Information Date on Monitor: 07/11/24 Time on Monitor: 04:40 Date off Monitor: 07/11/24 Time off Monitor: 05:15 Total Time on Monitor: 35 NST Interventions: None Contraction Frequency: Willie irregularly every 1-10 mins NST Evaluation Patient States Movement: Present FHR Baseline: 140 Variability: Moderate 6-25 bpm Accelerations: 15x15 Decelerations: None NST Results: Reactive Note Ultrasound Done: N/A. NST Note Note: Admit for PROM, plan pitocin IOL NST Reviewed and Verified by: Gena Nguyen
[2024-07-11] MEDS: Lactated Ringers 1,000 ML 125 ML IV ×4 (07:44→17:15)
[2024-07-11] MEDS: Lactated Ringers 500 ML IV (07:51)
--- NOTE | 2024-07-11 08:24 | W.ANESNEU ---
Epidural/Spinal Catheter Date Performed: 07/11/24 Procedure Start: 07:53 Procedure Stop: 08:35 Requesting Provider: Maryellen Hanley Procedure Location: Obstetrics Reason Performed: Labor Epidural Standard Monitors Applied: Blood Pressure, SpO2 and See EMR for corresponding vital signs Patient Position: Sitting Sedation Given (Indicate Dose Given): No Sedation given Patient Mental Status: Awake Sterility: Hand Hygiene, Surgical Cap, Surgical Mask, Sterile Gloves, Sterile Drape/Sheet and Chlorhexidine Procedure Location: L3-L4 Interspace Epidural Needle: Tuohy 18 Gauge Needle Length: 3.5 Inch Needle Approach: Midline Epidural Procedure: Skin Prepped, Sterile Drape Placed, 1% Lidocaine to skin and subcutaneous tissue with 25G needle, Tuohy Needle placed, BRINA to Saline Used, Epidural Catheter Placed, Negative Heme, Negative CSF Flow and Tuohy Needle Removed Catheter Placed?: Catheter Placed Test Dose (Indicate Dose Given): 3ml 1.5% Lidocaine with 1:200K Epinephrine Given and Negative Test Dose Loss of Resistance Depth (cm): 5 Catheter depth at skin (cm): 12 Dressing: [place] Dressing Placed, Mastisol Used and Dressing reinforced with Tape Epidural Provider Bolus (Indicate Dose Given): Total bolus dose given in 3-5 ml divided doses and Total Ropivacaine 0.1% with Fentanyl 2mcg/ml Given from pump. (ml) Dose:: 5 ml x2 Additives (Indicate Dose Given ): None Infusion Medication: Medication Infusion Began Medication Infusion: Ropivacaine 0.1% with Fentanyl 2mcg/ml Maintenance Infusion Rate (ml/hour): 10 PCEA Bolus Dose (ml): 5 Block Level: N/A Paresthesia: None Ultrasound: Not Used Number of Attempts (See previous attempts in note section): 1 Procedure Tolerated: No Complications and Patient tolerated well Procedure Outcome: Successful Procedure Comment:: Placed midline with ease. Bilateral setup achieved. Pt. states she no longer feels contractions. Educated on PCEA use, side effects of epidural (Itching, nausea etc.), and to notify RN uf any arm/hand/finger numbness is felt. Performed By: Dipesh Vogel
[2024-07-11] MEDS: FentaNYL/ROPIvacaine 2 mcg/ml and 0.1% 200 ML CADD Cassette EP ×2 (08:29→17:15)
[2024-07-11] MEDS: Oxytocin/Normal Saline 30 UNIT/500 ML BAG 2 UNITS IV (09:21)
--- NOTE | 2024-07-11 11:12 | W.PM.OBNL1 ---
Date of service: 07/11/24 Time of Service: 11:12 Informed Consent Informed Consent: Induction of Labor, Regional Anesthesia and Risk,Benefits,Alternatives Discussed Pelvic Exam Dilation: 3 Effacement (%): 90 station: -1 Cervix Position: mid Consistency: soft Vaginal Exam Presentation: Cephalic Comments: Bag of water palpable. AROM performed for a moderate amount of light meconium stained fluid. Contractions Monitor Mode: External Contraction Frequency(min): every 3 Contraction Duration(sec): 60 Intensity: Moderate Fetus A Monitor: External (US) Heart Rate Baseline: 130 Presentation: Cephalic Variability: Moderate (6-25 BPM) Categories: Category I FHR Rhythm: Regular Accelerations: 15 X 15 Decelerations: None Amniotic Membrane Status: Ruptured Rupture Method: Artifical Amniotic Fluid: Meconium Amount: moderate Assessment and Plan Assessment and plan (1) PROM (premature rupture of membranes): Status: Acute Assessment and plan: Labor augmentation ongoing. Rest encouraged for Brenna and her family members. Will continue pitocin infusion and anticipate . Objective Abnormal lab results 07/11/24 Range/Units 05:27 Hgb 10.6 L (11.2-15.7) g/dL Hct 32.6 L (36.0-46.0) % MCH 26.6 L (27.0-33.0) pg Temp Pulse Resp BP Pulse Ox 98.2 F 73 17 118/74 97 07/11/24 08:30 07/11/24 11:09 07/11/24 08:31 07/11/24 10:51 07/11/24 11:09 Laboratory Results WBC 10.70 10^3/uL (4.4-10.8) 07/11/24 05:27 RBC 3.99 10^6/uL (3.93-5.22) 07/11/24 05:27 Hgb 10.6 g/dL (11.2-15.7) L 07/11/24 05:27 Hct 32.6 % (36.0-46.0) L 07/11/24 05:27 MCV 82 fL (80-95) 07/11/24 05:27 MCH 26.6 pg (27.0-33.0) L 07/11/24 05:27 MCHC 32.5 % (32.0-36.0) 07/11/24 05:27 RDW 13.8 % (11.7-14.6) 07/11/24 05:27 Plt Count 201 10^3/uL (130-400) 07/11/24 05:27 MPV 10.6 fL (8.0-11.0) 07/11/24 05:27 ABO/Rh O Positive 07/11/24 05:27 Antibody Screen NEGATIVE 07/11/24 05:27 Subjective Patient Reports: No new Complaints Interval history since last seen: Resting comfortably with epidural in place but she has not slept and complains of fatigue. Pitocin induction started Results Hemoglobin/Hematocrit: Hgb 10.6 g/dL (11.2-15.7) L 07/11/24 05:27 Hct 32.6 % (36.0-46.0) L 07/11/24 05:27 Abnormal Lab Findings: Abnormal Labs 07/11/24 05:27 Hgb 10.6 L Hct 32.6 L MCH 26.6 L
--- NOTE | 2024-07-11 13:49 | W.PM.OBNL1 ---
Date of service: 07/11/24 Time of Service: 13:49 Informed Consent Informed Consent: Induction of Labor, Regional Anesthesia and Risk,Benefits,Alternatives Discussed Pelvic Exam Dilation: 5 Effacement (%): 100 station: +1 Cervix Position: mid Consistency: soft Vaginal Exam Presentation: Cephalic Contractions Monitor Mode: External Contraction Frequency(min): every 2 min Contraction Duration(sec): 60-90 Intensity: Strong Fetus A Monitor: External (US) Heart Rate Baseline: 130 Presentation: Vertex Variability: Moderate (6-25 BPM) Categories: Category I Accelerations: 15 X 15 Decelerations: None Amniotic Membrane Status: Ruptured Assessment and Plan Assessment and plan (1) PROM (premature rupture of membranes): Status: Acute Assessment and plan: Anticipate . (2) Encounter for induction of labor: Status: Acute Assessment and plan: Will resume pitocin augmentation and continue to assess contraction pattern Objective Abnormal lab results 07/11/24 Range/Units 05:27 Hgb 10.6 L (11.2-15.7) g/dL Hct 32.6 L (36.0-46.0) % MCH 26.6 L (27.0-33.0) pg Temp Pulse Resp BP Pulse Ox 98.2 F 104 H 16 115/73 97 07/11/24 12:32 07/11/24 13:44 07/11/24 11:27 07/11/24 13:18 07/11/24 13:44 Laboratory Results WBC 10.70 10^3/uL (4.4-10.8) 07/11/24 05:27 RBC 3.99 10^6/uL (3.93-5.22) 07/11/24 05:27 Hgb 10.6 g/dL (11.2-15.7) L 07/11/24 05:27 Hct 32.6 % (36.0-46.0) L 07/11/24 05:27 MCV 82 fL (80-95) 07/11/24 05:27 MCH 26.6 pg (27.0-33.0) L 07/11/24 05:27 MCHC 32.5 % (32.0-36.0) 07/11/24 05:27 RDW 13.8 % (11.7-14.6) 07/11/24 05:27 Plt Count 201 10^3/uL (130-400) 07/11/24 05:27 MPV 10.6 fL (8.0-11.0) 07/11/24 05:27 ABO/Rh O Positive 07/11/24 05:27 Antibody Screen NEGATIVE 07/11/24 05:27 Subjective Patient Reports: New Complaints Interval history since last seen: Brenna is experiencing a lot of pressure. Pitocin was turned off by RN due to frequent contractions every 1 1/2 - 2 minutes apart. Results Hemoglobin/Hematocrit: Hgb 10.6 g/dL (11.2-15.7) L 07/11/24 05:27 Hct 32.6 % (36.0-46.0) L 07/11/24 05:27 Abnormal Lab Findings: Abnormal Labs 07/11/24 05:27 Hgb 10.6 L Hct 32.6 L MCH 26.6 L
--- NOTE | 2024-07-11 17:21 | W.PM.OBNL1 ---
Date of service: 07/11/24 Time of Service: 17:21 Informed Consent Informed Consent: Induction of Labor, Regional Anesthesia and Risk,Benefits,Alternatives Discussed Pelvic Exam Dilation: 9 Effacement (%): 100 station: 0 Cervix Position: mid Consistency: soft Contractions Monitor Mode: External Contraction Frequency(min): every 2-3 Contraction Duration(sec): 60-80 Intensity: Strong Fetus A Monitor: External (US) Heart Rate Baseline: 130 Presentation: Vertex Variability: Moderate (6-25 BPM) Categories: Category I FHR Rhythm: Regular Accelerations: 15 X 15 Decelerations: None Amniotic Membrane Status: Ruptured Assessment and Plan Assessment and plan (1) Encounter for induction of labor: Status: Acute Assessment and plan: Continue to provide comfort measures and assist with pushing. Anticipate Objective Abnormal lab results 07/11/24 Range/Units 05:27 Hgb 10.6 L (11.2-15.7) g/dL Hct 32.6 L (36.0-46.0) % MCH 26.6 L (27.0-33.0) pg Temp Pulse Resp BP Pulse Ox 98.2 F 83 16 126/76 96 07/11/24 15:16 07/11/24 17:11 07/11/24 11:27 07/11/24 16:03 07/11/24 17:11 Laboratory Results WBC 10.70 10^3/uL (4.4-10.8) 07/11/24 05:27 RBC 3.99 10^6/uL (3.93-5.22) 07/11/24 05:27 Hgb 10.6 g/dL (11.2-15.7) L 07/11/24 05:27 Hct 32.6 % (36.0-46.0) L 07/11/24 05:27 MCV 82 fL (80-95) 07/11/24 05:27 MCH 26.6 pg (27.0-33.0) L 07/11/24 05:27 MCHC 32.5 % (32.0-36.0) 07/11/24 05:27 RDW 13.8 % (11.7-14.6) 07/11/24 05:27 Plt Count 201 10^3/uL (130-400) 07/11/24 05:27 MPV 10.6 fL (8.0-11.0) 07/11/24 05:27 ABO/Rh O Positive 07/11/24 05:27 Antibody Screen NEGATIVE 07/11/24 05:27 Subjective Patient Reports: No new Complaints Interval history since last seen: Brenna is resting comfortably on her side watching TV Results Hemoglobin/Hematocrit: Hgb 10.6 g/dL (11.2-15.7) L 07/11/24 05:27 Hct 32.6 % (36.0-46.0) L 07/11/24 05:27 Abnormal Lab Findings: Abnormal Labs 07/11/24 05:27 Hgb 10.6 L Hct 32.6 L MCH 26.6 L
[2024-07-11] MEDS: Ondansetron 4 MG/2 ML VIAL IVP (18:32)
[2024-07-11] MEDS: Normal Saline Flush 10 ML SYR IVP (18:33)
[2024-07-11] MEDS: Pantoprazole 40 MG TABCR PO (18:35)
[2024-07-11] MEDS: miSOPROStol 100 MCG TAB 400 MCG PO (23:41)
[2024-07-12] VITALS (10 sets, daily range): BP systolic 103–141; BP diastolic 62–78; PULSE 78–122; RESP 16–17; TEMP 36.4–37.1; O2SAT 96–98
--- NOTE | 2024-07-12 00:35 | W.OBDELIVERY ---
Date of service: 07/12/24 Time of Service: 00:35 OB Labor/ Delivery Information Baby A Delivery Delivery Method: Spontaneaous Presentation: Vertex Cephalic Position: Vertex Vertex Position: Left Occipital Anterior Cord Description-Baby A: 3 Vessels Amniotic Fluid: Meconium (light) Estimated Blood Loss: 300 Delivery Outcome: Liveborn Infant Transferred: Remains with Mother Note: Brenna progressed to an anterior rim of cervix and had an urge to push. She began pushing and the rim was reduced easily. FHTs 130s during first stage of labor. She pushed well. FHTs 130s in second stage. She made slow but steady progress with pushing in various positions. Second stage huddle was done hourly. Dr. Grewal was present on th eunit and aware of patient's status. She pushed well and had a spontaneous delivery of female infant delivered in MIN position. Baby was placed on mother's abdomen and dried and stimulated. Spontaneous cry. Cord was clamped and cut by the baby's father. The placenta delivered spontaneously and appears to by intact with a three vessel cord. Pitocin 30 units IV was administered before delivery of the placenta. The perineum was inspected and a second degree laceration was repaired with a left labial extension. Theuterus was boggy with scant bright bleeding noted and misoprostol 400 mcg was given PO. The baby did breastfeed. After delivery, Mother and baby and father of the baby were stable and bonding well in the delivery room and there were no complications. Her name is Marie. Weight is pending Providers Nurse Wire Mesh Filter Fabricator: Maryellen Villatoro Nurse: Sarah Beth Woodson Nurse: Janny Calderon Labor/Delivery Information Number of Babies in Womb: 1 Steroids Given: None Reason Steroids Not Administered: N/A Group Beta Strep: Negative Antibiotics Administered: No Rubella Status: Immune Blood Type: O+ Varicella Immunity: Immune Born En Route: No Maternal Complications: Prolonged Second Stage(>2hrs) Shoulder Dystocia: No Stages of Labor Onset of Labor Date: 07/10/24 Onset of Labor Time: 20:00 Complete Dilatation Date: 07/11/24 Complete Dilatation Time: 19:42 Labor - Stage 1 Duration: 23 hours and 42 minutes ROM Baby A: 07/11/24 ROM Baby A: 10:57 ROM Total Time- Baby A: [id number] Delivery Date-Baby A: 07/11/24 Delivery Time-Baby A: 23:06 Labor Stage 2 Duration: 3 hours and 24 minutes Placenta Delivery Date-Baby A: 07/11/24 Placenta Delivery Time-Baby A: 23:16 Labor-Stage 3 Duration: 10 minutes Total Length of Labor-Baby A: 27 hours and 6 minutes Placenta Status: Delivered Baby A Infant Gender: Female Gestational Status: Term (39-41.6 wks) Gestational Age in Weeks/Days: 41 Weeks and 1 Days Score-1 Minute Interval(Baby A) Heart Rate-1 minute: 100 BPM or Greater Respiratory Effort- 1 minute: Slow Respiration/Weak Cry Muscle Tone-1 minute: Active Movement Reflex Response-1 minute: Prompt Response Color-1 minute: Pallor or Cyanosis Total Score-1 minute: 7 Score-5 Minute Interval(Baby A) Heart Rate- 5 minute: 100 BPM or Greater Respiratory Effort-5 minute: Spontaneous/Strong Cry Muscle Tone-5 minute: Active Movement Reflex Response-5 minute: Prompt Response Color-5 minute: Bluish Hands or Feet Total Score- 5 minute: 9 Interventions Repair of Laceration Type: Perineal, Laceration Extension: Second Degree. Sponge Count Correct: No Sponges Placed in Vagina, Sharp Count Correct: Yes. Laceration Repair Note: perineum repaired with 3-0 vicryl suture and 2-0 vicryl suture under local anesthetic and epidural anesthetic. She tolerated this well.
[2024-07-12] MEDS: Dibucaine 1% 28 GM TUBE TP (01:05)
[2024-07-12] MEDS: Hamamelis Leaf/Glycerin 100 EACH BOX PR (01:05)
[2024-07-12] MEDS: Acetaminophen 325 MG TAB 650 MG PO ×6 (01:06→20:39)
[2024-07-12] MEDS: Ibuprofen 600 MG TAB PO ×3 (01:06→12:35)
[2024-07-12] MEDS: Docusate Sodium 100 MG CAP PO ×2 (06:29→20:39)
--- NOTE | 2024-07-12 08:35 | W.ANESPOSTOP ---
Postoperative Evaluation Date, Time and Location Date Performed: 07/12/24 Time Performed: 08:10 Patient Location: Obstetrics Vital Signs Most Recent Imported Vital Signs: Most Recent Vital Signs Temp Pulse Resp BP Pulse Ox 36.6 C 82 17 122/77 98 07/12/24 08:00 07/12/24 08:00 07/12/24 08:00 07/12/24 08:00 07/12/24 08:00 Pain Score Most Recent Pain Score: Most Recent Pain Score Pain Level [Back] 4 07/11/24 07:31 Pain Level [Abdomen] 4 07/11/24 07:31 Pain Level 2 07/11/24 16:10 Assessment Mental Status: Awake (Alert & Oriented to Patient Baseline) Airway and Respiratory Function: Patent airway with normal (patient baseline) respiratory exam Cardiovascular Function: Hemodynamically Stable Hydration Status: Adequately Hydrated Nausea & Vomiting: No Nausea or Vomiting Pain: Pain is tolerable per patient Peripheral Nerve Block: Patient did not receive a nerve block
--- NOTE | 2024-07-12 14:12 | W.PM.OBPNV1 ---
Date of service: 07/12/24 Time of Service: 14:12 Assessment and Plan Assessment and plan (1) Term of female : Status: Acute Assessment and plan: Caring for baby independently. Pain is managed well with oral analgesics. Voiding without difficulty. well. A - stable mother and baby , Post day 1 P - Discharge to home tomorrow. Routine post instructions. [facility]Will consider PT after discharge for hip pain. (2) Urinary retention with incomplete bladder emptying: Status: Acute Assessment and plan: Will discontinue indwelling catheter at 12 hours and continue to assess for signs of urinary retention. Subjective Subjective Interval history: Brenna has been experiencing hip pain and has a history of hip pain aftre past injuries. She was straight catheterized this morning for 750 cc retained urine and was unable to void after that. A moya was placed at 0400 and she has been able to rest. She is using PO pain medication with fair to mod relief. Patient comments: Pain well controlled Patient's Mood: good [place] baby status: Doing well [place] feeding status: Exclusively breast feeding Exam Physical Exam Vital signs: Temp Pulse Resp BP Pulse Ox 97.8 F 82 17 122/77 98 07/12/24 08:00 07/12/24 08:00 07/12/24 08:00 07/12/24 08:00 07/12/24 08:00 Vital Signs Reviewed: Yes Constitutional Constitutional: no acute distress HEENT Exam HEENT Exam: Normal Respiratory Exam Respiratory Exam: Normal Cardiovascular Exam Cardiovascular Exam: Normal Fundal Exam Fundus: Below Umbilicus and Firm Rectal Exam Rectal Exam: Normal Extremities Exam Extremity Exam: Normal Back/Spine/Pelvis Exam Back Exam: Normal Skin Exam Skin Exam: Normal Psychiatric Exam Psychiatric Exam: Normal Results Hemoglobin/Hematocrit: Hgb 10.6 g/dL (11.2-15.7) L 07/11/24 05:27 Hct 32.6 % (36.0-46.0) L 07/11/24 05:27 Abnormal Lab Findings: Abnormal Labs 07/11/24 05:27 Hgb 10.6 L Hct 32.6 L MCH 26.6 L
--- NOTE | 2024-07-12 17:20 | W.PM.OBPNV1 ---
Date of service: 07/12/24 Time of Service: 17:21 Assessment and Plan Assessment and plan (1) Urinary retention with incomplete bladder emptying: Status: Acute Assessment and plan: Bradley catheter removed at 1730 and will continue to assess voiding and emptying. Nursing instructed to perform bladder scan for residual after voiding this evening. (2) Left hip pain: Status: Acute Assessment and plan: Will try anaprox DS for pain relief BID at this time and she was encouraged to continue tylenol as well. Ambulation with assist was encouraged. Will continue to assess repnse to oral pain relief and mobility. (3) Fatigue: Status: Acute Assessment and plan: Sleep post was strongly encouraged and discussed with her family. She will receive anaprox now and try to sleep after dinner and will reassess her when she awakes. CBC drawn. (4) Anemia due to blood loss: Status: Acute Assessment and plan: hgb 9.2 and HCT 27.7. Will continue to assess her tolerance of ambulation when out of bed. Iron supplementation at discharge. Subjective Subjective Interval history: I was asked by IAN Shane to assess Brenna this evening. She has been having difficulty moving in bed and ambulating due to discomfort. She reports pain in both hips and in pubic bone which is making it hard to move around. She also reports feeling weak. She last ambulated after delivery with two nurses assisting but has been lying in bed all day. The baby is latching at the breast and her vital signs are stable. Bradley catheter is in place for 12 hours after placement. She has had visitors all day and she reports that she has had no sleep. She can bridge up her hips and roll to her side with assistance. Her and mother have been providing support to her today. Patient's Mood: pain is poorly controlled with ibuprofen. She reports that she has taken naproxen for past pain related to hip injury [place] baby status: Nursing well feeding status: Exclusively breast feeding Exam Physical Exam Vital signs: Temp Pulse Resp BP Pulse Ox 97.5 F L 78 16 122/77 98 07/12/24 16:30 07/12/24 16:30 07/12/24 16:30 07/12/24 08:00 07/12/24 16:30 Vital Signs Reviewed: Yes Constitutional Constitutional: mild distress HEENT Exam HEENT Exam: Normal Fundal Exam Fundus: Below Umbilicus and Firm Exam Perineum: Edematous (Marked labial edema. ) Extremities Exam Extremity Exam: Edema (1+ pedal and ankle edema) Skin Exam Skin Exam: Normal Psychiatric Exam Psychiatric Exam: Normal (emotional at times due to discomfort) Results Hemoglobin/Hematocrit: Hgb 10.6 g/dL (11.2-15.7) L 07/11/24 05:27 Hct 32.6 % (36.0-46.0) L 07/11/24 05:27 Abnormal Lab Findings: Abnormal Labs 07/11/24 05:27 Hgb 10.6 L Hct 32.6 L MCH 26.6 L
[2024-07-12 17:36] LABS: HCT 27.7 % (36.0-46.0); HGB 9.2 g/dL (11.2-15.7); MCH 26.7 pg (27.0-33.0); MCHC 33.2 % (32.0-36.0); MCV 81 fL (80-95); MPV 10.3 fL (8.0-11.0); Platelet Count 191 10^3/uL (130-400); RBC 3.44 10^6/uL (3.93-5.22); RDW-SD 40.4 fL; WBC 16.02 10^3/uL (4.4-10.8)
[2024-07-12 18:10] LABS: Lab Add On Test DONE
[2024-07-12 18:13] LABS: Abs Immature Grans 0.09 10^3/uL (0.0-0.06); Absolute Basophil Count 0.05 10^3/uL (0.0-0.2); Absolute Monocyte Count 0.79 10^3/uL (0.1-0.8); Absolute Neutrophil Count 13.22 10^3/uL (1.2-6.7); Basophils % 0.3 %; Eosinophils % 0.6 %; Immature Grans % 0.6 %; Lymphocytes % 12.3 %; Monocytes % 4.9 %; Neutrophils % 81.3 %
[2024-07-12] MEDS: Normal Saline Flush 10 ML SYR IVP (22:39)
[2024-07-13] MEDS: Acetaminophen 325 MG TAB 650 MG PO ×2 (03:35→08:35)
[2024-07-13 08:15] VITALS: BP 111/79; PULSE 84; RESP 16; TEMP 36.5; O2SAT 97
[2024-07-13] MEDS: Docusate Sodium 100 MG CAP PO (08:35)
[2024-07-13] MEDS: Pantoprazole 40 MG TABCR PO (08:35)
[2024-07-13] MEDS: Normal Saline Flush 10 ML SYR IVP (08:36)
[2024-07-13 10:27] LABS: Abs Immature Grans 0.09 10^3/uL (0.0-0.06); Absolute Basophil Count 0.06 10^3/uL (0.0-0.2); Absolute Eosinophil Count 0.24 10^3/uL (0.0-0.7); Absolute Lymphocyte Count 1.63 10^3/uL (1.2-3.4); Absolute Monocyte Count 0.54 10^3/uL (0.1-0.8); Absolute Neutrophil Count 11.75 10^3/uL (1.2-6.7); Basophils % 0.4 %; Eosinophils % 1.7 %; HCT 30.6 % (36.0-46.0); HGB 9.8 g/dL (11.2-15.7); Immature Grans % 0.6 %; Lymphocytes % 11.4 %; MCH 26.2 pg (27.0-33.0); MCV 82 fL (80-95); MPV 10.1 fL (8.0-11.0); Monocytes % 3.8 %; Neutrophils % 82.1 %; Platelet Count 223 10^3/uL (130-400); RBC 3.74 10^6/uL (3.93-5.22); RDW 14.3 % (11.7-14.6); RDW-SD 41.6 fL; WBC 14.31 10^3/uL (4.4-10.8)
[2024-07-13 10:49] LABS: ALT 27 U/L (14-59); AST 39 U/L (15-37); Albumin 2.7 g/dL (3.4-5.0); Alkaline Phosphatase 175 U/L (46-116); Anion Gap 9.9 mmol/L (3-11); BUN 8 mg/dL (7-18); Bilirubin, Total 0.3 mg/dL (0.2-1.0); CO2 23.1 mmol/L (21.0-32.0); CREATININE 0.7 mg/dL (0.55-1.02); Chloride 109 mmol/L (98-107); Estimated GFR 123.01 (mL/min/1.73m2); Glucose 113 mg/dL (74-106); Potassium 3.7 mmol/L (3.5-5.1); Sodium 142 mmol/L (136-145)
--- NOTE | 2024-07-13 12:25 | W.PM.OBDISCH ---
Date of service: 07/13/24 Time of Service: 12:26 DS: Diagnosis Discharge Diagnosis (1) Left hip pain: Status: Acute Asessment and Plan: Continue ibuprofen and/or tylenol daily for pain relief. Referral to PT after 2 weeks post (2) Anemia due to blood loss: Status: Acute Asessment and Plan: vitamin with iron recommended daily. High iron foods recommended (3) Term of female : Status: Acute Asessment and Plan: Brenna has been out of bed and ambulating without difficulty. Voiding without difficulty. Caring for baby independently. Pain is managed well with oral analgesics. Voiding without difficulty. well. Repeat CBC and CMP with WBC 14.000 and Hgb 9.8 A - stable mother and baby , Post day 2 P - Discharge to home. Routine post instructions. [facility] Discharge Plan Disposition Patient Disposition: Home Condition: Good Discharge Details Reason For Visit: labor Admit Date/Time: 07/11/24 05:14 Admit Provider: Gena Nguyen Attending Provider: Gena Nguyen Primary Care Provider: Austyn James Home Meds and New Rx's Prescriptions: No Action Classic 28 mg iron- 800 mcg tablet 1 tab PO DAILY pantoprazole [Protonix] 40 mg tablet,delayed release (DR/EC) 40 mg PO DAILY Qty: 30 6RF ondansetron HCl 4 mg tablet 4 mg PO Q8H PRN psyllium husk [Metamucil] 0.4 gram capsule 0.4 g PO DAILY PRN (Reason: constipation) Qty: 1 0RF docusate sodium [Colace] 100 mg capsule 100 mg PO DAILY Discharge Instructions Stand Alone Forms: BC Instructions, BC Post Vaginal Deliver Activity:: Activity as Tolerated Equipment/Supplies:: No Equipment Needed Diet:: As Tolerated Discharge Orders Discharge Orders: Discharge Order (Routine); Ordered 07/13/24 Ordered By: Maryellen Villatoro OB:DS Summary Summary Vaginal Delivery Method: Spontaneaous Episiotomy Description: None Laceration Description: Perineal Laceration Extension: Second Degree Contraception Discussed Contraception Discussed: Yes Contraceptive Plan: IUD, Ava Gender-Baby A: Female Status at Discharge Functional status at discharge: independent ambulation Overall status at discharge: patient is back to baseline Mental Status: mental status grossly normal Speech and Movement: speech and movement normal Mood: congruent mood Affect: normal affect Quality:SDOH Health Related Social Needs: No Data to Display Exam Physical Exam Vital signs: Temp Pulse Resp BP Pulse Ox 97.7 F 84 16 111/79 97 07/13/24 08:15 07/13/24 08:15 07/13/24 08:15 07/13/24 08:15 07/13/24 08:15 Vital Signs Reviewed: Yes Constitutional Constitutional: no acute distress HEENT Exam HEENT Exam: Normal Respiratory Exam Respiratory Exam: Normal Cardiovascular Exam Cardiovascular Exam: Normal Fundal Exam Fundus: Below Umbilicus and Firm Exam Perineum: Edematous and Repair Intact Extremities Exam Extremity Exam: Normal Skin Exam Skin Exam: Normal Detailed Skin Exam Skin: Absent rash Psychiatric Exam Psychiatric Exam: Normal PFSH All Active Problems (Updated 07/13/24 @ 11:37 by Maryellen Villatoro CNM) Anemia due to blood loss (Acute) Left hip pain (Acute) Term of female (Acute) Irritable bowel syndrome with constipation (Acute) Anxiety (Chronic) Scoliosis (Acute) Gastroesophageal reflux disease (Chronic) Medical History (Updated 07/13/24 @ 11:37 by Maryellen Villatoro CNM) Family history of thyroid disease Chronic constipation with overflow Chronic anal fissure Lactose intolerance Family history of irritable bowel syndrome Labral tear of left hip joint surgical repair in 2021 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 Paternal Grandfather Substance use disorder Alcohol use disorder Maternal Grandmother Alcohol use disorder Thyroid disease Paternal Grandmother Thyroid disease Social History (Reviewed 06/02/23 @ 13:03 by DARY Adams Smoking/Tobacco Use Status: Never Second Hand Exposure: No Smoking risk assessment performed?: Yes Alcohol Intake: current Alcohol Intake frequency: a few times a week Alcohol type: beer, wine and hard liquor Drug use: Occasionally Substance use type: marijuana Adopted: No Caregiver/Support person: No Foster care: No Household members: significant other Housing: house Number of Children: 0 Communication Needs: None Do you need help understanding health information?: Never Pets and animals: Yes Pets and animals: cat(s) Sexually active: Yes Do you think of yourself as: straight/heterosexual Current gender identity: female What is your relationship status?: living with partner How often do you talk on the phone with friends or family?: three or more times per week How often do you get together with friends or relatives?: once per week How often do you attend confucianist or hindu services?: decline to answer Do you belong to any clubs or organized social groups?: no Panel score (0-1 are the most socially isolated patients): 2 What type of physical activity do you participate in: aerobic, bicycling and other Details: DANCING Duration: 45-60 minutes/day Frequency: 5-6 times per week Marilia/Scientology: No preference Special marilia needs: No Seatbelt use: always Helmet use: Yes Helmet use: always Drive intox or ride w/intox driver license agent: No Do you feel safe at home: Yes Do you feel safe in your relationship?: Yes Female Reproductive History Menstrual control method: progestin IUCD History History 1 Para 0 Hx # Term Pregnancies 0 Multiple births 0 Hx # Pregnancies 0 Ectopic pregnancies 0 AB induced 0 Hx Number of Living Children 0 AB spontaneous 0 DS: Data Vitals/I&O Vitals and I&O: Vital Signs Temperature 97.7 F 07/13/24 08:15 Temperature 98.0 F 07/11/24 07:18 Temperature Source Oral 07/13/24 08:15 Pulse 84 07/13/24 08:15 Pulse 83 07/11/24 07:18 Pulse Rhythm Regular 07/13/24 08:15 Respiratory Rate 16 07/13/24 08:15 Respiratory Depth Normal 07/12/24 08:58 Blood Pressure 111/79 07/13/24 08:15 Blood Pressure 121/73 03/18/25 07:18 Blood Pressure Mean 89 07/13/24 08:15 Pulse Oximetry 97 07/13/24 08:15 Oxygen Delivery Method Room Air 07/11/24 05:04 Oxygen Flow Rate 0 07/11/24 05:04 Pain Level 3 07/13/24 08:35 Intake & Output 07/12/24 07/13/24 07/13/24 23:59 11:59 23:59 Intake Total 1000 / 1083.5 Output Total 2800 / 5750 Balance -1800 / -4666.5 Intake: IV 1000 / 1083.5 Output: Urine 2800 / 5750 Other: Urine Color Yellow Urine Appearance Clear Data Completed and Pending Labs on day of discharge: Labs from last 24 hours 07/13/24 07/12/24 07/12/24 10:18 Unknown 17:25 WBC 14.31 H 16.02 H RBC 3.74 L 3.44 L Hgb 9.8 L 9.2 L Hct 30.6 L 27.7 L MCV 82 81 MCH 26.2 L 26.7 L MCHC 32.0 33.2 RDW 14.3 14.0 Plt Count 223 191 MPV 10.1 10.3 Immature Gran % 0.6 0.6 Neutrophils % 82.1 81.3 Lymphocytes % 11.4 12.3 Monocytes % 3.8 4.9 Eosinophils % 1.7 0.6 Basophils % 0.4 0.3 Nucleated RBC % 0.0 Absolute Neutrophils 11.75 H 13.22 H Absolute Lymphocytes 1.63 2.00 Absolute Monocytes 0.54 0.79 Absolute Eosinophils 0.24 0.10 Absolute Basophils 0.06 0.05 Sodium 142 Potassium 3.7 Chloride 109 H Carbon Dioxide 23.1 Anion Gap 9.9 BUN 8 Creatinine 0.7 Est GFR (CKD-EPI 2020) 123.01 Glucose 113 H Calcium 9.0 Total Bilirubin 0.3 AST 39 H ALT 27 Alkaline Phosphatase 175 H Total Protein 6.0 L Albumin 2.7 L Add-On Test Request DONE
[2024-07-13 12:35] VITALS: BP 110/78; PULSE 84; RESP 16; TEMP 37; O2SAT 98
== END 2024-07-13 12:45 | disposition home or self-care (01) | DRG 806 ==
PROVIDERS: Advanced Practice Midwife; Admitting Provider Advanced Practice Midwife; PCP Nurse Practitioner Family; Visit Provider Advanced Practice Midwife
DX: O42.92 Full-term premature rupture of membranes, unspecified as to length of time between rupture and onset of labor (principal); D62 Acute posthemorrhagic anemia; Z37.0 Single live birth; O22.43 Hemorrhoids in pregnancy, third trimester; O48.0 Post-term pregnancy; Z3A.41 41 weeks gestation of pregnancy; F41.9 Anxiety disorder, unspecified; M41.9 Scoliosis, unspecified; O99.62 Diseases of the digestive system complicating childbirth; O99.344 Other mental disorders complicating childbirth; O70.1 Second degree perineal laceration during delivery; O77.0 Labor and delivery complicated by meconium in amniotic fluid; K58.1 Irritable bowel syndrome with constipation; R33.8 Other retention of urine; O12.05 Gestational edema, complicating the puerperium; O90.81 Anemia of the puerperium; O75.89 Other specified complications of labor and delivery; M25.552 Pain in left hip; M25.551 Pain in right hip
CPT/HCPCS: 36415; 80053; 85027; 86850; 86900; 86901; 85007; 85025; J2405

== ENCOUNTER 2024-07-17 15:51 | Outpatient (REF) | payer OTHER, SELFPAY | END 2024-07-17 15:52 | disposition home or self-care (01) | LOC: LBN 15:51 | PROVIDERS: PCP Nurse Practitioner Family; Visit Provider Advanced Practice Midwife | DX: R10.9 Unspecified abdominal pain (principal); R10.30 Lower abdominal pain, unspecified; N61.0 Mastitis without abscess | CPT/HCPCS: 87086 ==

== ENCOUNTER 2024-08-24 15:28 | Outpatient (REF) | payer OTHER, SELFPAY ==
--- NOTE | 2024-08-24 10:00 | PAPFT_PTH ---
PATIENT: Brenna Alexis LOC: [facility] U#:[id number] AGE/SX: 23/F ROOM: RE08/24/[address]: Gena Nguyen CNM : 2000 BED: DIS: 08/24/2024 SPEC #: [id number] RECD: 08/24/24 17:42 STATUS: DANIEL [place]UMBO #: [id number] HARJIT: 08/24/24 10:[address]: Gena Nguyen DEPT: [facility] Cytology RECD BY: Mary Pena ENTERED: 08/24/24 17:42 SP TYPE: PAPFT BRIT DR: Austyn James, PREMA Tissues: 1 - CX/ENDOCX FOR PAP SMEARS Procedures: PAP THIN PREP/[facility] Screening Comments: [id number]
== END 2024-08-24 15:29 | disposition home or self-care (01) ==
LOC: LBN 15:28
PROVIDERS: PCP Nurse Practitioner Family; Visit Provider Advanced Practice Midwife
DX: Z12.4 Encounter for screening for malignant neoplasm of cervix (principal)
CPT/HCPCS: 88142